=== PATIENT | male | born 1940 | race Caucasian/White ===

== ENCOUNTER 2018-04-12 15:58 | Inpatient (IN) | payer MEDICARE, SELFPAY ==
[2018-04-12 21:59] VITALS: BMI 25.4
[2018-04-12] MEDS ORDERED: Dextrose 50% Abboject 50 ML SYRINGE SLOW IVP PRN (23:04)
[2018-04-12] MEDS ORDERED: Dextrose 5% in Water 1,000 ML IV PRN (23:04)
[2018-04-12] MEDS ORDERED: HumaLOG 300 UNITS/3 ML VIAL SC PRN (23:10)
[2018-04-12] MEDS ORDERED: Diltiazem 125 MG in Sodium Chloride 0.9% 100 ML IVPB SCH (23:15)
[2018-04-12] MEDS ORDERED: hydrALAZINE 20 MG/ML VIAL SLOW IVP PRN (23:23)
--- NOTE | 2018-04-12 23:24 | PDOC.FPRHP ---
- History of Present Illness Chief Complaint: feeling funny History of Present Illness: 77 yo M with PMH of aflutter s/p ablation x2 from [facility] for Afib with RVR. This morning he "felt funny" and had "irregular heart beating." He also felt lightheaded. Denied chest pain, SOB, nausea. He says this episode felt different from his prior ID (has history of ID s/p 3V CABG). He went to the [place] ED where he was found to be in Afib wtih RVR and started on a dilt drip. At time of interview episode had just resolved. He has been hospitalized in the past for Aflutter requiring ablations. He sees Dr. Stein but states it has been a year since his last appointment. He endorses compliance with medications. ED Course: Dilt drip - Allergies/Adverse Reactions Allergies Allergy/AdvReac Type Severity Reaction Status Date / Time codeine Allergy Unverified 04/12/18 22:29 - Home Medications Medication Instructions Recorded Confirmed Type Aspirin [Aspirin Chewable Tablet] 81 mg PO DAILY 04/13/18 04/13/18 History Atorvastatin Calcium 40 mg PO HS 04/13/18 04/13/18 History Enalapril Maleate 20 mg PO BID 04/13/18 04/13/18 History Metoprolol Succinate [Toprol Xl] 50 mg PO BID 04/13/18 04/13/18 History hydrALAZINE [Apresoline] 25 mg PO BID 04/13/18 04/13/18 History metFORMIN [Glucophage] 500 mg PO BID-WM 04/13/18 04/13/18 History - History PMHx: Aflutter s/p ablation x2, ID s/p 3V CABG, HTN, DM2, HLD PSHx: Cholecystectomy FHx:HTN, DM Social: Former smoker, former EtOH abuse, denies drug use. Lives in [place], retired. [place] and [facility]. - Review of Systems General: denies: fever/chills, weight/appetite/sleep changes Eyes: denies: vision changes ENT: denies: nasal congestion Respiratory: denies: cough, congestion, shortness of breath Cardiovascular: reports: palpitation. denies: chest pain, edema, orthopnea Gastrointestinal: denies: nausea, vomiting, diarrhea, constipation Genitourinary: denies: dysuria, polyuria Skin: denies: rashes, lesions Musculoskeletal: reports: stiffness. denies: pain, tenderness Neurological: denies: syncope, seizure, weakness Psychological: denies: anxiety, depression - Vital signs BP: [168/68] HR: [83] RR: [15] Tmax: [98] Pox: [98]% on [RA] Wt: [82.78] - Physical Exam Constitutional: NAD, awake, alert and oriented HEENT: normocephalic and atraumatic, EOMI, conjunctiva clear, MMM, oropharynx clear Neck: supple, FROM Chest: no-tender to palpation, no lesions Heart: RRR, normal S1/S2 -Heart: systolic murmur Lungs: CTAB, no respiratory distress, good air movement Abdomen: soft, non-tender, no masses/distention Musculoskeletal: normal structure, normal tone, ROM grossly normal Neurological: no focal deficit, CN II-XII intact, normal sensation Skin: no rash/lesions, good turgor, capillary refill <2 seconds Heme/Lymphatic: no unusual bruising or bleeding, no petechia Psychiatric: normal mood and affect, good judgment and insight, other (poor short term memory, A&O x3) FMR H&P: Results - Labs Result Diagrams: 04/13/18 05:09 FMR H&P: A/P - Problem List (1) Atrial fibrillation with RVR Current Visit: Yes Status: Acute Code(s): I48.91 - UNSPECIFIED ATRIAL FIBRILLATION (2) HTN (hypertension) Current Visit: Yes Status: Acute Code(s): I10 - ESSENTIAL (PRIMARY) HYPERTENSION (3) DM2 (diabetes mellitus, type 2) Current Visit: Yes Status: Acute (4) HLD (hyperlipidemia) Current Visit: Yes Status: Acute Code(s): E78.5 - HYPERLIPIDEMIA, UNSPECIFIED (5) History of coronary artery bypass graft Current Visit: Yes Status: Acute (6) History of ID (myocardial infarction) Current Visit: Yes Status: Acute Code(s): I25.2 - OLD MYOCARDIAL INFARCTION (7) History of atrial flutter Current Visit: Yes Status: Acute Code(s): Z86.79 - PERSONAL HISTORY OF OTHER DISEASES OF THE CIRCULATORY SYSTEM (8) History of prior ablation treatment Current Visit: Yes Status: Acute Code(s): Z98.890 - OTHER SPECIFIED POSTPROCEDURAL STATES - Plan 77 yo M with PMH of Aflutter s/p ablation x2, ID s/p CABG here with atrial fibrillation w/ RVR #Afib with RVR -Received dilt. drip in ED -At this time rate controlled with pulse in 80s -Continue dilt. drip @5; pulse parameters <110 -Will start on th lovenox, can consider long-term anticoagulation -echo, TSH, Mg, Phos -Plan to consult Dr. Stein, recs appreciated #Elevated d-dimer -0.56, Wells score 0 -non-hypoxic on RA, no SOB, on anti-coagulation -likely from Afib #HTN -continue home meds #DM2 -continue home meds -sliding scale, accuchecks #HLD -continue home meds #ID s/p CABG -aware, outside ED negative trops #Hx of Aflutter s/p ablation x2 -aware FMR H&P: Upper Level - Pertinent history 77m transfer from outside facility for a-fib requiring diltiazem gtt for rate control. Patient with a PMH of atrial flutter s/p ablation x 2, who normally sees Dr. Stien of Cardiology. Last ablation was in 2013 and he reports no arrhythmias since then. He initially presented to ER around noon for palpitations accompanied by lightheadedness but no CP or SOB. At the time of our evaluation, patient is resting comfortably and able to answer questions. He is asymptomatic and rate controlled on diltiazem still in a-fib. ER: diltiazem 20 mg IV, diltiazem gtt @ 5mg/hr - Pertinent findings Vitals: 98.1F 75 bpm 16 RR 98% on 2L NC 150/83 mmHg Gen: A&Ox3; in no acute distress CV: irregularly irregular rhythm; normal rate Pulm: CTA-B Abd: soft; non TTP Ext: no pitting edema EKG: a-fib trop: negative x 2 D-dimer: 0.51 - Plan Date/Time: 04/12/18 2323 1. A-fib with RVR: would not consider this new onset since he has a history of ablations for atrial flutter. Currently, rate controlled on dilt gtt. Will continue CCB and maintain rate under 110 bpm. Will consult Cardiology in the morning. Check a TTE, Mag, Phos, and TSH. Anticoagulate with Lovenox 1 mg/kg BID. [id number] score of 5, translating to 10% risk of thromboembolic event. HASBLED score of 3 also puts patient in high risk category for bleeding. 2. Elevated D-dimer: patient at low risk for DVT per Wells Score of 0. He denies any pleuritic pain or SOB. Value of 0.56 only slightly out of normal range. Suspect this mild elevation is due to the atrial fibrillation that was uncontrolled on presentation. No CTA at this time. Reconsider if respiratory status declines. Regardless, he is being therapeutically anticoagulated. 3. HTN: continue home lisinopril. Hold metoprolol. PRN IV hydralazine available. 4. HLD: continue atorvastatin 5. DMII: restart metformin. CrCl of 64. mild SSI with accuchecks qACHS 6. CAD: hx of ID s/p 3V CABG. Trops negative at outside facility I, [facility], have evaluated this patient and agree with findings/plan as outlined by mechanical engineering intern resident. Pertinent changes/additions are listed here. Attending Addendum - Attending Addendum Date/Time: 04/13/18 0602 I personally evaluated the patient in the ER and discussed the management with Dr. Gallegos I agree with the History, Examination, Assessment and Plan documented above with any addition or exceptions noted below.
[2018-04-12] MEDS ORDERED: Enoxaparin Sodium 80 MG/0.8 ML SYRINGE SC SCH (23:30)
[2018-04-12] MEDS: Lactated Ringer's 1,000 ML IV SCH (23:45)
[2018-04-13] LABS: Magnesium 1.8 mg/dL (1.6-2.6); Phosphorus 2.7 mg/dL (2.3-4.7)
--- NOTE | 2018-04-13 00:17 | PDOC.EVN ---
Attending Addendum - Attending Addendum Date/Time: 04/13/18 0008 I personally evaluated the patient and discussed the management with Dr. Gallegos I agree with the History, Examination, Assessment and Plan documented see [facility] Hx and Physical for details. 77 yo DM2,HTN male s/p 3V CABG years ago in [place] with c/o felt weak and dizzy today called 911 and taken to [place], [place] ER and found to be in new onset atrial fibrillation with RVR, HR controlled with IV diltiazem drip, troponin negative x 2 and d-dimer mildly elevated. Patient followed by Dr Venkat Stein he is s/p history of Atrial flutter and ablation procedure x 2. Patient will be admitted telemetry continue diltiazem drip for rate control obtain echocardiogram for evaluation structural/ valvular disease and Lovenox for anticoagulation Check TFT and Magnesium Consult cardiology in am
[2018-04-13] MEDS ORDERED: Diltiazem 125 MG in Sodium Chloride 0.9% 100 ML IVPB SCH ×2 (01:00→01:04)
[2018-04-13 06:00] LABS: #Basophils 0.1 thou/uL (0.0-0.2); #Eosinphils 0.1 thou/uL (0.0-0.7); #Lymphocytes 1.3 thou/uL (1.20-3.40); #Monocytes 0.5 thou/uL (0.11-0.59); #Neutrophils 3.5 thou/uL (1.40-6.50); %Eosinophils 2.6 % (0.0-10.0); %Lymphocytes 23.8 % (21.0-51.0); %Monocytes 9.4 % (0.0-10.0); %Neutrophils 63.2 % (42.0-75.0); Hemoglobin 11.8 g/dL (14.0-18.0); Mean Corpuscular HGB CONC 36.1 g/dL (32.0-36.0); Mean Corpuscular Hemoglobin 32.8 pg (27.0-31.0); Mean Corpuscular Volume 90.7 fL (78.0-98.0); Mean Platelet Volume 7.7 fL (7.4-10.4); Platelet Count 216 thou/uL (130-400); RBC Distribution Width 14.6 % (11.5-14.5); Red Blood Cell (RBC) Count 3.61 mill/uL (4.70-6.10); White Blood Cell (WBC) Count 5.6 thou/uL (4.8-10.8)
[2018-04-13 06:09] LABS: ALT (SGPT) 17 U/L (8-55); AST (SGOT) 16 U/L (5-34); Albumin 3.8 g/dL (3.4-4.8); Alkaline Phosphatase 58 U/L (40-150); Anion Gap 13 mmol/L (10-20); BUN (Urea Nitrogen) 18 mg/dL (8.4-25.7); Bilirubin, Total 0.9 mg/dL (0.2-1.2); Calc. Creatinine Clearance 85 mL/min (70-130); Calcium 9.1 mg/dL (7.8-10.44); Carbon Dioxide 20 mmol/L (23-31); Chloride 108 mmol/L (98-107); Estimated GFR-MDRD 88; Globulin 2.6 g/dL (2.4-3.5); Glucose 122 mg/dL (83-110); Protein, Total 6.4 g/dL (5.8-8.1); Sodium 137 mmol/L (136-145)
--- NOTE | 2018-04-13 07:00 | PDOC.FM ---
- Subjective Subjective: NAEO. Patient states he feels much better this AM compared to yesterday. Denies any SOB, chest pain, or palpitations. Just states he feels like his heart beat is stronger. Is otherwise feeling well with no complaints. - Objective MAR Reviewed: Yes Vital Signs & Weight: Vital Signs (12 hours) Temp Pulse Resp BP Pulse Ox 04/13/18 04:00 98.1 F 60 16 119/67 98 04/12/18 23:10 59 L 119/55 L 04/12/18 20:51 98.1 F 75 16 150/83 H 98 04/12/18 20:45 98 Weight Weight 83.053 kg I&O: 04/11/18 04/12/18 04/13/18 06:59 06:59 06:59 Intake Total 888.1 Output Total 675 Balance 213.1 Result Diagrams: 04/13/18 05:09 04/13/18 05:09 <Shelly Tellez - Last Filed: 04/13/18 10:00> - Objective Vital Signs & Weight: Vital Signs (12 hours) Temp Pulse Resp BP Pulse Ox 04/13/18 08:33 81 04/13/18 08:00 96 04/13/18 07:38 99.2 F 81 16 141/63 H 96 04/13/18 04:00 98.1 F 60 16 119/67 98 Weight Weight 83.053 kg I&O: 04/12/18 04/13/18 04/14/18 06:59 06:59 06:59 Intake Total 888.1 Output Total 675 Balance 213.1 Result Diagrams: 04/13/18 05:09 04/13/18 05:09 <Michael Agustin - Last Filed: 04/13/18 11:33> Phys Exam - Physical Examination Constitutional: NAD HEENT: moist MMs Neck: supple, full ROM Respiratory: no wheezing, no rales, no rhonchi, clear to auscultation bilateral Cardiovascular: no significant murmur Irregulary irregular rhythm with regular rate Musculoskeletal: no edema, pulses present Neurological: non-focal, normal sensation, moves all 4 limbs Psychiatric: normal affect, A&O x 3 Deviation from normal: AxO x3 w/ poor custodial memory Skin: no rash, normal turgor <Shelly Tellez - Last Filed: 04/13/18 10:00> Dx/Plan (1) Atrial fibrillation with RVR Code(s): I48.91 - UNSPECIFIED ATRIAL FIBRILLATION Status: Acute (2) DM2 (diabetes mellitus, type 2) Status: Acute (3) HLD (hyperlipidemia) Code(s): E78.5 - HYPERLIPIDEMIA, UNSPECIFIED Status: Acute (4) HTN (hypertension) Code(s): I10 - ESSENTIAL (PRIMARY) HYPERTENSION Status: Acute (5) History of AK (myocardial infarction) Code(s): I25.2 - OLD MYOCARDIAL INFARCTION Status: Acute (6) History of atrial flutter Code(s): Z86.79 - PERSONAL HISTORY OF OTHER DISEASES OF THE CIRCULATORY SYSTEM Status: Acute (7) History of coronary artery bypass graft Status: Acute (8) History of prior ablation treatment Code(s): Z98.890 - OTHER SPECIFIED POSTPROCEDURAL STATES Status: Acute - Plan Plan: 77YOM with a PMH significant for Aflutter s/p ablation x2 and an AK s/p CABG x 3 who presented to the ED with a CC of "feeling funny" and was found to be in atrial fibrillation w/ RVR. Afib with RVR - Received dilt. drip in ED which has been continued on the floor. Down to rate of 5. - Rate has remained controlled with pulse in 60s-80s overnight. - Will continue th lovenox & will consider [employer] anticoagulation. - Echo ordered for today. - TSH, Mg, & Phos WNLs. - Will consult cardiology today. Recs appreciated. Spoke with Dr. Quiroz, addictions therapist dinkey engineer, who stated no invasive therapies would be done today and that the patient could eat. - Will d/c IVFs and allow patient to have a HH, CC diet today. Hx of Aflutter s/p ablation x2 - Aware. Elevated d-dimer - D-dimer 0.56 on presentation. Wells score 0. - Patient has been non-hypoxic on RA w/ no SOB since admission. - Likely from Afib. Will continue Th Lovenox for anticoagulation HTN - Will continue home meds. DM2 - Will continue home meds & SSI w/ ACHS accuchecks. - Will check an A1c since patient does not recall the last time his was checked. HLD - Will continue home meds. h/o AK s/p CABG - Aware, patient had negative trops at outside ED. - Will continue home meds. <Shelly Tellez - Last Filed: 04/13/18 10:00> Attending Addendum - Attending Addendum Date/Time: 04/13/18 113 I personally evaluated the patient and discussed the management with Dr. Tellez. I agree with the History, Examination, Assessment and Plan documented above with any addition or exceptions noted below. <Michael Agustin - Last Filed: 04/13/18 11:33>
[2018-04-13] MEDS: hydrALAZINE 25 MG TAB PO SCH ×2 (08:33→20:26)
[2018-04-13] MEDS: metFORMIN 500 MG TAB PO SCH ×2 (08:33→16:42)
[2018-04-13] MEDS: Lactated Ringer's 1,000 ML IV SCH (08:34)
[2018-04-13] MEDS ORDERED: Enoxaparin Sodium 80 MG/0.8 ML SYRINGE SC SCH (09:00)
[2018-04-13] MEDS ORDERED: Prevnar 13-Val Conj/PF 0.5 ML SYRINGE IM ONE (09:00)
[2018-04-13 10:31] LABS: Hemoglobin A1c 6.5 % (4.0-6.0)
[2018-04-13] MEDS ORDERED: Amiodarone 200 MG TAB PO SCH (13:30)
--- NOTE | 2018-04-13 13:41 | CON-2 ---
DATE OF CONSULTATION: 04/13/2018 CONSULTING PHYSICIAN: Dr. Jeff Quiroz REASON FOR CONSULTATION: Atrial fibrillation with rapid ventricular rate. HISTORY OF PRESENT ILLNESS: Mr. Montero is a pleasant 77-year-old male who presented from [place], [place] for atrial fibrillation with rapid ventricular rate. The patient states that he started feeling funny on the day of admission at approximately noon and felt as though his heart was fluttering. He opted to check his blood pressure at that time and noted his blood pressure to be 200/ 120. He called the [facility] who then took him into the emergency department. The patient was initially taken to [facility] where he was started on a diltiazem drip 10 mg per hour. He was also given Cardizem 20 mg IV. The patient was then transferred over to [facility] for further management. Of note, during this episode of not feeling well and having palpitations, the patient also had heaviness located in the center of his chest. He denied any shortness of breath, diaphoresis, nausea or vomiting. The patient states prior to this episode, he was feeling fine. He states he has been walking about 2 miles every day without any difficulties. He denies any swelling, orthopnea, paroxysmal nocturnal dyspnea or fevers. The patient states that he checks his blood pressure at home and generally it is well controlled. The patient does follow with Dr. Stein, his side seam tender; however, he has not seen Dr. Stein in over a year. Currently, the patient is asymptomatic and not experiencing any shortness of breath, chest heaviness, palpitations, diaphoresis, or nausea and vomiting. He states at the time of the elevated blood pressure prior to calling EMS he did take a dose of his enalapril, which did not help the blood pressure to come down. The patient does have a history significant for a 3-vessel CABG as well as 2 ablations for atrial flutter. The patient states that he has not had any problems with irregular heart rate since his last ablation. Patient had echo performed in 2013 which showed EF of 45-50%. PAST MEDICAL HISTORY: 1. Coronary artery disease, status post 3-vessel CABG. 2. History of atrial flutter status post ablation x2. 3. Hypertension. 4. Hyperlipidemia. 5. Diabetes mellitus type 2. OUTPATIENT MEDICATIONS: 1. Aspirin 81 mg every day. 2. Enalapril 20 mg b.i.d. 3. Metoprolol 100 mg b.i.d. 4. Simvastatin 80 mg at bedtime. 5. Meloxicam 15 daily. 6. Spironolactone 25 mg b.i.d. 7. Metformin b.i.d. (the patient is uncertain of the dose of the metformin he was taking at home). The patient did provide a list of his medications, although some of the medications that he is taking are not on the list he provided. ALLERGIES: CODEINE. FAMILY HISTORY: The patient has family history significant for myocardial infarctions in his father at the age of 64 and in his mother at the age of 64, as well. Both from myocardial infarctions. SOCIAL HISTORY: The patient is a former smoker. He states that he quit 30 years ago and had a 15-year history of smoking 1 pack per day. The patient also states that he had a history significant for alcohol abuse, but he quit drinking about 15 years ago. The patient denies any drug use. Patient does state that he walks 2 miles every day. REVIEW OF SYSTEMS: A 12-point review of systems was performed and all are negative, unless stated in the history of present illness. PHYSICAL EXAMINATION: VITAL SIGNS: Temperature 98.2 degrees Fahrenheit, pulse 93, respiratory rate 14 , oxygen saturation 95% on room air, blood pressure 154/69. GENERAL: The patient is awake, alert, and oriented x3, in no distress. HEENT: Normocephalic, atraumatic. NECK: Supple. LUNGS: Clear to auscultation bilaterally. CARDIOVASCULAR: Irregularly irregular rhythm with 2 discernible systolic murmurs, crescendo murmur and holosystolic murmur indicative of and MR, respectively. ABDOMEN: Soft with positive bowel sounds throughout. EXTREMITIES: No edema. SKIN: Warm and dry. LABORATORY DATA: Reviewed. CBC with WBC of 5.6, hemoglobin 11.8, hematocrit of 32.8, and platelets of 216. CMP shows sodium 137, potassium 4.0, chloride 108, bicarbonate 20, BUN 18, creatinine 0.84, hemoglobin A1c is 6.5, magnesium 1.8, phosphorus of 2.7, AST of 16, ALT 17, alkaline phosphatase of 58, albumin of 3.8, serum total protein of 6.4. TSH was normal at 2.0259. Telemetry strip does show atrial fibrillation with a high of 127 BPM and an average of 80-100 BPM. ASSESSMENT AND PLAN: 1. Atrial fibrillation with rapid ventricular response: The patient is currently on diltiazem drip at 5 mg per hour and it appears to be rate controlled with heart rate in the 80s-100. We will allow for pulse parameters to be less than 110. TSH, mag and phos within normal limits. Echocardiogram currently pending. Will start patient on PO Amiodarone. If patient does not convert, will plan for ESPERANZA to evaluate for thromboses tomorrow. If no thrombosis detected on ESPERANZA, then will proceed with cardioversion. Will transition to Eliquis from therapeutic lovenox. Patient will need to be on Eliquis [facility]. 2. Hypertension: Continue current medications. 3. Hyperlipidemia: Continue statin therapy. 4. Diabetes mellitus type 2: Continue metformin. HgA1c of 6.5%. 5. HFwrEF. Last echo in 2013 which showed EF of 45-50%. Repeat echocardiogram pending. Continue current medications. 6. CAD s/p 3V CABG: Maximize management of comorbid conditions. Meena El, PGY-2 D[address]ating on behalf of Dr. Jeff CADENA
--- NOTE | 2018-04-13 18:00 | CON ---
CARDIOLOGY CONSULTATION DATE OF CONSULTATION: 04/13/2018 REASON FOR CONSULTATION: Atrial fibrillation, rapid ventricular response. PRIMARY LINSEED CAKE TRIMMER: Venkat Stein MD. HISTORY OF PRESENT ILLNESS: Mr. Montero is a pleasant 77-year-old white gentleman, who comes to the [facility] for feeling palpitations. He was in atrial fibrillation with RVR, which is a new diagnosis for him. Please see Dr. Meena El's report for more details, but briefly, he came in for atrial fibrillation with RVR. He was placed on a diltiazem drip and transferred over. He has a history of atrial flutter and atrial tachycardia, which he has been ablated in the past for. He has never had a diagnosis of atrial fibrillation before. He has been on full anticoagulation and has tolerated wel l in the past. He never had any bleeding issues. He also has a history of ischemic cardiomyopathy w ith an EF of 40-45% on echo in 2013. He had 3-vessel bypass in the past as well. Currently, he is r ate controlled. PAST MEDICAL HISTORY: 1. Coronary artery disease, status post 3-vessel CABG. 2. History of atrial flutter, status post flutter ablation isthmus dependent. 3. History of atrial tachycardia, status post ablation of 3 different spots of right-sided atrial ta chycardia focuses. 4. Hypertension. 5. Hyperlipidemia. 6. Type 2 diabetes. OUTPATIENT MEDICATIONS: 1. Aspirin 81 a day. 2. Enalapril 20 mg b.i.d. 3. Metoprolol 100 mg b.i.d. 4. Simvastatin 80 mg at bedtime. 5. Meloxicam 15 daily. 6. Spironolactone 25 b.i.d. 7. Metformin. ALLERGIES: CODEINE. For family history, social history, and review of systems, please see Dr. Meena El's note, w anjelica is attached to my note. PHYSICAL EXAMINATION: VITAL SIGNS: Temperature 98.2, pulse 93, respiration rate 14, satting 94% on room air, blood pressur e 154/69. GENERAL: Awake, alert, oriented x3, in no distress. HEENT: Normocephalic, atraumatic. NECK: Supple. LUNGS: Clear. CARDIOVASCULAR: Irregularly irregular heart rate in the 80s-90s. There is a grade 3/6 systolic murm ur at the right sternal border consistent with systolic ejection murmur and a second grade 3/6 holosy stolic murmur at the apex consistent with an MR murmur. ABDOMEN: Soft, positive bowel sounds. EXTREMITIES: No edema. SKIN: Warm and dry. LABORATORY WORK: Reviewed. ASSESSMENT: 1. Atrial fibrillation with rapid ventricular response. 2. Hypertension. 3. Hyperlipidemia. 4. Type 2 diabetes. 5. Ischemic cardiomyopathy, ejection fraction at 40-45%, most recent echo. PLAN: 1. This is the first time he has ever been in atrial fibrillation RVR. He has had several right-sonali ed arrhythmias, but this is the first time he has a left-sided arrhythmia. We will plan on doing ful l anticoagulation with Eliquis as his CHADS-VASc score is 4 and we will start him on Eliquis at 5 mg p.o. b.i.d., and we will start him on amiodarone load and we will get an echocardiogram and plan on d oing a ESPERANZA cardioversion tomorrow morning, if he remains in atrial fibrillation. We have spoken abou t the risks and benefits of the procedure and he agrees to proceed. 2. Further recommendations per results of cardioversion.
[2018-04-13] MEDS: Amiodarone 200 MG TAB PO SCH (20:25)
[2018-04-13] MEDS: Apixaban 5 MG TAB PO SCH (20:25)
[2018-04-13] MEDS ORDERED: Atorvastatin Calcium 40 MG TAB PO SCH (21:00)
[2018-04-13 21:56] LABS: Platelet Count 203 thou/uL (130-400)
[2018-04-14 05:35] LABS: #Basophils 0.1 thou/uL (0.0-0.2); #Eosinphils 0.1 thou/uL (0.0-0.7); #Lymphocytes 1.4 thou/uL (1.20-3.40); #Monocytes 0.6 thou/uL (0.11-0.59); #Neutrophils 4.6 thou/uL (1.40-6.50); %Basophils 0.9 % (0.0-1.0); %Lymphocytes 20.8 % (21.0-51.0); %Monocytes 8.2 % (0.0-10.0); %Neutrophils 68.2 % (42.0-75.0); Hemoglobin 12.2 g/dL (14.0-18.0); Mean Corpuscular HGB CONC 36.4 g/dL (32.0-36.0); Mean Corpuscular Hemoglobin 32.8 pg (27.0-31.0); Mean Corpuscular Volume 90.2 fL (78.0-98.0); Platelet Count 213 thou/uL (130-400); RBC Distribution Width 14.7 % (11.5-14.5); White Blood Cell (WBC) Count 6.7 thou/uL (4.8-10.8)
[2018-04-14 05:44] LABS: ALT (SGPT) 13 U/L (8-55); AST (SGOT) 15 U/L (5-34); Albumin 3.9 g/dL (3.4-4.8); Alkaline Phosphatase 60 U/L (40-150); Anion Gap 12 mmol/L (10-20); BUN (Urea Nitrogen) 14 mg/dL (8.4-25.7); Bilirubin, Total 0.8 mg/dL (0.2-1.2); Calc. Creatinine Clearance 77 mL/min (70-130); Calcium 9.4 mg/dL (7.8-10.44); Carbon Dioxide 21 mmol/L (23-31); Chloride 108 mmol/L (98-107); Estimated GFR-MDRD 79; Globulin 2.7 g/dL (2.4-3.5); Glucose 126 mg/dL (83-110); Potassium 4.2 mmol/L (3.5-5.1); Protein, Total 6.6 g/dL (5.8-8.1); Sodium 137 mmol/L (136-145)
--- NOTE | 2018-04-14 06:17 | PDOC.FM ---
- Subjective Subjective: Patient had a 2.5s pause on telemetry monitoring overnight per the night team. On exam, patient states he feel great this morning and is ready to go home. Only complaint is a sore throat from the procedure this AM. - Objective MAR Reviewed: Yes Vital Signs & Weight: Vital Signs (12 hours) Temp Pulse Resp BP BP Pulse Ox 04/14/18 04:00 98 F 84 16 122/60 95 04/13/18 23:00 87 95/46 L 04/13/18 20:26 87 152/70 H 04/13/18 20:10 96 04/13/18 19:30 98.1 F 87 16 152/70 H 96 Weight Weight 83.053 kg I&O: 04/12/18 04/13/18 04/14/18 06:59 06:59 06:59 Intake Total 888.1 1370 Output Total 675 475 Balance 213.1 895 Result Diagrams: 04/14/18 05:20 04/14/18 05:20 <Shelly Tellez - Last Filed: 04/14/18 11:54> - Objective Vital Signs & Weight: Vital Signs (12 hours) Temp Pulse Resp BP BP Pulse Ox 04/14/18 11:17 77 173/84 H 04/14/18 10:10 97.7 F 77 20 173/80 H 97 04/14/18 04:00 98 F 84 16 122/60 95 Weight Weight 82.191 kg I&O: 04/13/18 04/14/18 04/15/18 06:59 06:59 06:59 Intake Total 888.1 1520 Output Total 675 700 Balance 213.1 820 Result Diagrams: 04/14/18 05:20 04/14/18 05:20 <Michael Agustin - Last Filed: 04/14/18 12:52> Phys Exam - Physical Examination Constitutional: NAD HEENT: moist MMs, sclera anicteric Neck: supple, full ROM Respiratory: no wheezing, no rales, no rhonchi, clear to auscultation bilateral Cardiovascular: RRR, no significant murmur Gastrointestinal: soft, non-tender, no distention, positive bowel sounds Musculoskeletal: no edema, pulses present Neurological: non-focal, normal sensation, moves all 4 limbs Psychiatric: normal affect, A&O x 3 Skin: no rash, normal turgor <Shelly Tellez - Last Filed: 04/14/18 11:54> Dx/Plan (1) Atrial fibrillation with RVR Code(s): I48.91 - UNSPECIFIED ATRIAL FIBRILLATION Status: Acute (2) DM2 (diabetes mellitus, type 2) Status: Acute (3) HLD (hyperlipidemia) Code(s): E78.5 - HYPERLIPIDEMIA, UNSPECIFIED Status: Acute (4) HTN (hypertension) Code(s): I10 - ESSENTIAL (PRIMARY) HYPERTENSION Status: Acute (5) History of [place] (myocardial infarction) Code(s): I25.2 - OLD MYOCARDIAL INFARCTION Status: Acute (6) History of atrial flutter Code(s): Z86.79 - PERSONAL HISTORY OF OTHER DISEASES OF THE CIRCULATORY SYSTEM Status: Acute (7) History of coronary artery bypass graft Status: Acute (8) History of prior ablation treatment Code(s): Z98.890 - OTHER SPECIFIED POSTPROCEDURAL STATES Status: Acute - Plan Plan: 77YOM with a PMH significant for Aflutter s/p ablation x2 and an NJ s/p CABG x 3 who presented to the ED with a CC of "feeling funny" and was found to be in atrial fibrillation w/ RVR. Afib with RVR - Patient remained on diltiazem drip for remainder of day yesterday but it was titrated down to rate of 2.5mls/hr. - Rate has remained controlled with pulse in the 80s overnight but still in a. fib. - Was taken down for a ESPERANZA w/ cardioversion early this AM as he did not convert overnight. - Echo read pending from yesterday. - Will continue to monitor closely on telemetry and discharge likely later today once cleared by cards on amiodarone and eliquis as directed by cardiology. Hx of Aflutter s/p ablation x2 - Aware. HFrEF - EF of 45-50% according to last echo. Repeat echo pending that can be discussed with patient at [facility] follow-up appt. - Aware, will continue home meds. Elevated d-dimer - D-dimer 0.56 on presentation. Wells score 0. - Patient has been non-hypoxic on RA w/ no SOB since admission. - Likely from Afib. Will continue Lovenox for anticoagulation HTN - Will continue home meds. DM2 - Will continue home meds & SSI w/ ACHS accuchecks. - A1c from yesterday was 6.5. HLD - Will continue home meds. h/o NJ s/p CABG - Aware, patient had negative trops at outside ED. - Will continue home meds. <Shelly Tellez - Last Filed: 04/14/18 11:54> Attending Addendum - Attending Addendum Date/Time: 04/14/18 4231 I personally evaluated the patient and discussed the management with Dr. Tellez. I agree with the History, Examination, Assessment and Plan documented above with any addition or exceptions noted below. <Michael Agustin - Last Filed: 04/14/18 12:52>
[2018-04-14] MEDS ORDERED: Lidocaine 0.5%/Epinephrine 1:200,000 50 ml Vial ONE (07:45)
[2018-04-14] MEDS ORDERED: PROPOFOL 20 ML ONE (07:45)
[2018-04-14 10:33] VITALS: TEMP 97.7
[2018-04-14] MEDS: Apixaban 5 MG TAB PO SCH (11:16)
[2018-04-14] MEDS: Amiodarone 200 MG TAB PO SCH (11:16)
[2018-04-14] MEDS: hydrALAZINE 25 MG TAB PO SCH (11:17)
[2018-04-14 11:18] VITALS: BP 173/84
[2018-04-14] MEDS: metFORMIN 500 MG TAB PO SCH (11:18)
[2018-04-14] MEDS ORDERED: PROPOFOL 200 MG/20 ML VIAL ONE (13:49)
--- NOTE | 2018-04-14 23:16 | OP ---
DATE OF SERVICE: 04/14/2018. PREPROCEDURE DIAGNOSIS: Atrial fibrillation, RVR. POSTPROCEDURE DIAGNOSIS: Successful cardioversion. SUMMARY: The patient is a pleasant 77-year-old white gentleman who comes down to the PACU for planned ESPERANZA card ioversion. Please see ESPERANZA for details. After adequate sedation was achieved by the anesthesiology department and ESPERANZA ruled out thrombus, he received one single synchronized 100 joules shock successfully converting him from atrial fibrillatio n into sinus rhythm with PACs. He tolerated the procedure well. RECOMMENDATIONS: 1. Continue Eliquis for full anticoagulation. 2. Continue amiodarone load. 3. Follow up in the office with Dr. Stein in 1 month.
--- NOTE | 2018-04-14 23:20 | ECHO ---
DATE OF SERVICE: 04/25/2018. PREPROCEDURE DIAGNOSIS: Atrial fibrillation, RVR. The Anesthesiology department provided with sedation for the patient. Please see their notes for det ails. After adequate sedation was achieved, transesophageal probe was inserted into the mouth and into the esophagus. Multiplanar views were obtained. Left ventricle is normal size, normal wall thickness. Systolic function appears to be normal at 50-5 5% with no regional wall motion abnormalities. Left atrium is moderately dilated. Left atrial appendage is a small appendage with no evidence of mass or thrombus. Right atrium is mildly dilated. No mass or thrombus. The right ventricle is normal size with normal systolic function. Aortic valve is sclerotic with reduced cusp opening. Aortic valve area by planimetry at 1.2 cm2. Mitral valve has mitral annular calcification with moderate MR, no stenosis. Tricuspid valve is structurally normal. There is moderate to severe TR, no stenosis. Pulmonary valve is not well seen. No significant pulmonary insufficiency is seen. Interatrial septum appears to be intact by color Doppler. CONCLUSIONS: 1. Normal systolic function, EF at 50-55%. 2. Moderate left atrial enlargement. 3. Left atrial appendage is small without evidence of mass or thrombus. 4. Sclerotic aortic valve with reduced cusp opening. Planimetry shows a valve area of 1.2 cm2, sugg estive of moderate aortic stenosis. 5. Moderate to severe TR. 6. Moderate MR.
--- NOTE | 2018-04-15 01:32 | DIS-2 ---
DATE OF ADMISSION: 04/12/2018 DATE OF DISCHARGE: 04/14/2018 RESIDENT: Dr. Shelly Tellez. ADMITTING ATTENDING: Dr. Yeyo Munoz. DISCHARGE ATTENDING: Dr. Michael Agustin. CONSULTATIONS: Cardiology, Dr. Jeff Quiroz. PROCEDURES: Transesophageal echo with cardioversion. PRIMARY DIAGNOSES: New-onset atrial fibrillation with rapid ventricular response. SECONDARY DIAGNOSES: 1. Hypertension. 2. Type 2 diabetes mellitus. 3. Hyperlipidemia. 4. History of myocardial infarction. 5. History of coronary artery bypass grafting x1. 6. History of atrial flutter. 7. History of prior ablation with treatment x2. DISCHARGE MEDICATIONS: 1. Metoprolol succinate 50 mg p.o. b.i.d. 2. Metformin 500 mg p.o. b.i.d. with meals. 3. Hydralazine 25 mg p.o. b.i.d. 4. Atorvastatin 40 mg p.o. at bedtime. 5. Enalapril maleate 20 mg p.o. b.i.d. 6. Aspirin 81 mg daily. 7. Amiodarone 100 mg p.o. b.i.d. for 7 days and followed by 400 mg p.o. daily for the remainder of the prescription. 8. Eliquis 5 mg p.o. b.i.d. DISCONTINUED MEDICATIONS: None. HISTORY OF PRESENT ILLNESS AND HOSPITAL COURSE: The patient is a 77-year-old gentleman with a past medical history significant for atrial flutter, status post ablation x2 and history of an ID status post CABG x1, who was transferred from [place], [place], after presenting to the emergency department with a chief complaint of feeling funny and having an irregular heartbeat that began the morning of presentation. The patient was evaluated in the ER and found to be in atrial fibrillation with RVR and was started on a diltiazem drip at a rate of 10mL/hr. The patient was then transferred to [facility] Emergency Department where he remained on the drip and as his HR had come down to be within normal limits. After being evaluated in our ER, he was deemed to be stable on the diltiazem drip and transferred to the floor for close monitoring overnight on telemetry. He was continued on the diltiazem drip overnight, but his drip was titrated down to 5 mL an hour and the patient's rate remained controlled overnight. The following morning, routine labs were obtained, which were all noted to be within normal limits. 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 His magnesium and TSH were also within normal limits at 1.8 and 2.0259. That same day cardiology, Dr. Jeff Quiroz, was consulted to come and evaluate the patient and initiated p.o. rhythm control therapy with amiodarone 400 /now and amiodarone 400 b.i.d. He also initiated anticoagulation therapy with Eliquis 5 mg p.o. b.i.d. and recommended the patient remain on the diltiazem drip at a lower titrated rate of 2.5 mL an hour in conjunction with the p.o. amiodarone to see if he would convert on his own overnight. However, by the morning of discharge, the patient had yet to convert to NSR and was therefore taken down to the operating room for a transesophageal echocardiogram with cardioversion. The patient tolerated the procedure well and was converted back to sinus rhythm without any complications. Thus, after being monitored for several more hours over the course of the day, he was cleared for discharge home in stable condition. DISPOSITION: Stable. DISCHARGE INSTRUCTIONS: 1. Location: Home. 2. Diet: Heart healthy diet, low-sodium diet, or diabetic diet. 3. Activity: As tolerated. 4. Followup: Patient was instructed to follow up with his primary care physician, Dr. Nahum Martin within 1 week of discharge. He was also instructed to follow up with his personal generation manager, Dr. Venkat Stein within 1 month of discharge. SURINDER
--- NOTE | 2018-04-17 11:47 | EKG ---
Test Reason : POST CARDIOVERSION Blood Pressure : / mmHG Vent. Rate : 070 BPM Atrial Rate : 070 BPM P-R Int : 178 ms QRS Dur : 102 ms QT Int : 468 ms P-R-T Axes : 247 020 -39 degrees QTc Int : 505 ms Unusual P axis, possible ectopic atrial rhythm Inferior infarct (cited on or before 14-DEC-1994) Prolonged QT Abnormal ECG Confirmed by JULIEN FRANK ([id number]) on 04/17/2018 11:47:15 AM Referred By: TERRENCE Confirmed By:JULIEN FRANK
== END 2018-04-14 14:01 | disposition home or self-care (01) | DRG 310 ==
LOC: 2NO 20:31
PROVIDERS: ADMIT Family Medicine; ATTEND Family Medicine
PROC: B246ZZ4 Ultrasonography of Right and Left Heart, Transesophageal (ICD-10-PCS; principal; 2018-04-14)
PROC: 5A2204Z Restoration of Cardiac Rhythm, Single (ICD-10-PCS; 2018-04-14)
DX: I48.91 Unspecified atrial fibrillation (principal); I08.1 Rheumatic disorders of both mitral and tricuspid valves; I10 Essential (primary) hypertension; E11.9 Type 2 diabetes mellitus without complications; E78.5 Hyperlipidemia, unspecified; I25.10 Atherosclerotic heart disease of native coronary artery without angina pectoris; I25.5 Ischemic cardiomyopathy; Z79.82 Long term (current) use of aspirin; Z79.84 Long term (current) use of oral hypoglycemic drugs; I25.2 Old myocardial infarction; Z87.891 Personal history of nicotine dependence; Z95.1 Presence of aortocoronary bypass graft; Z90.49 Acquired absence of other specified parts of digestive tract; Z83.3 Family history of diabetes mellitus; Z82.49 Family history of ischemic heart disease and other diseases of the circulatory system
CPT/HCPCS: 36415; 36416; 80053; 83036; 83735; 84100; 84443; 85025; 90471; 90662; 92960; 93005; 93010; 93306; 93312; G0008; J1650; J2001; J2704; J7050

== ENCOUNTER 2018-07-23 11:41 | Inpatient (IN) | payer MEDICARE ==
[2018-07-23 12:04] LABS: INR-International Normal Ratio 1.1; PTT 27.6 SEC (22.9-36.1); Prothrombin Time 13.9 SEC (12.0-14.7)
[2018-07-23 12:21] LABS: ALT (SGPT) 15 U/L (8-55); AST (SGOT) 14 U/L (5-34); Albumin 4.3 g/dL (3.4-4.8); Alkaline Phosphatase 60 U/L (40-150); Anion Gap 17 mmol/L (10-20); BUN (Urea Nitrogen) 19 mg/dL (8.4-25.7); Bilirubin, Total 0.6 mg/dL (0.2-1.2); CK (CPK) 39 U/L (30-200); Calc. Creatinine Clearance 0 mL/min (70-130); Calcium 9.8 mg/dL (7.8-10.44); Carbon Dioxide 20 mmol/L (23-31); Chloride 105 mmol/L (98-107); Estimated GFR-MDRD 73; Globulin 2.6 g/dL (2.4-3.5); Glucose 151 mg/dL (83-110); Protein, Total 6.9 g/dL (5.8-8.1); Sodium 138 mmol/L (136-145)
[2018-07-23 12:22] LABS: #Eosinphils 0.1 thou/uL (0.0-0.7); #Lymphocytes 1.2 thou/uL (1.20-3.40); #Monocytes 0.7 thou/uL (0.11-0.59); #Neutrophils 7.1 thou/uL (1.40-6.50); %Basophils 0.2 % (0.0-1.0); %Eosinophils 1.2 % (0.0-10.0); %Lymphocytes 12.6 % (21.0-51.0); %Monocytes 7.7 % (0.0-10.0); %Neutrophils 78.2 % (42.0-75.0); Hemoglobin 13.5 g/dL (14.0-18.0); Mean Corpuscular HGB CONC 34.2 g/dL (32.0-36.0); Mean Corpuscular Hemoglobin 31.8 pg (27.0-31.0); Mean Platelet Volume 7.8 fL (7.4-10.4); Platelet Count 185 thou/uL (130-400); RBC Distribution Width 14.6 % (11.5-14.5); Red Blood Cell (RBC) Count 4.24 mill/uL (4.70-6.10); White Blood Cell (WBC) Count 9.1 thou/uL (4.8-10.8)
[2018-07-23 12:42] LABS: CKMB 1.7 ng/mL (0-6.6)
--- NOTE | 2018-07-23 12:46 | PDOC.FPRHP ---
- History of Present Illness Chief Complaint: Chest pain History of Present Illness: 77yo M with pmh of CAD s/p CABG 20years ago presents to ED with complaint of CP. Of note pt is poor historian and unable to provide details about his condition. His son is at bedside and provided a majority of the history. Pt called EMS with complaint of substernal CP with some radiation to the back. In route pt had evidence of ST elevation and was given nitro x3 and ASA. This resolved the ST elevation and CP completely. By the time pt was evaluated by family medicine team he was asymptomatic and had no complaints. Of note pt was in hospital in early April with atrial fibrilation and was cardioverted. ED Course: ASA, nitro x3, therapeutic dose of lovenox. For further details see hpi - Allergies/Adverse Reactions Allergies Allergy/AdvReac Type Severity Reaction Status Date / Time codeine Allergy Verified 04/13/18 08:32 - Home Medications Medication Instructions Recorded Confirmed Type Aspirin Chewable [Aspirin Chewable 81 mg PO DAILY 04/13/18 07/23/18 History Tablet] Atorvastatin Calcium 40 mg PO HS #30 tablet 04/14/18 07/23/18 Rx Enalapril Maleate 20 mg PO BID #60 tablet 04/14/18 07/23/18 Rx hydrALAZINE [Apresoline] 25 mg PO BID #60 tab 04/14/18 07/23/18 Rx metFORMIN [Glucophage] 500 mg PO BID-WM #60 tab 04/14/18 07/23/18 Rx Metoprolol Tartrate [Lopressor] 50 mg PO BID 07/23/18 07/23/18 History - History PMHx: DM2, CAD, HTN, HLD, a-fib PSHx: CABG, L knee surgery FHx: CAD (mom and dad from [place]) Social: 20 pack year Hx smoking (former smoker) - Review of Systems General: denies: fever/chills, fatigue Eyes: denies: eye pain, vision changes ENT: denies: nasal congestion Respiratory: reports: shortness of breath. denies: congestion Cardiovascular: reports: chest pain. denies: palpitation Gastrointestinal: denies: nausea, vomiting Genitourinary: denies: incontinence, dysuria Skin: denies: rashes, lesions Musculoskeletal: denies: pain, tenderness Neurological: denies: syncope, seizure Psychological: denies: anxiety, depression - Vital signs BP: [131/71] HR: [101] RR: [17] Tmax: [97.8] Pox: [100]% on [ra] Wt: [89kg] - Physical Exam Constitutional: NAD, awake, alert and oriented HEENT: EOMI, conjunctiva clear, grossly normal vision, grossly normal hearing Neck: supple, trachea midline Chest: no-tender to palpation Heart: RRR, other (holosystolic grade 3/6 murmur) Lungs: CTAB, no wheezing Abdomen: soft, non-tender Musculoskeletal: normal structure, normal tone Neurological: no focal deficit, normal sensation Skin: no rash/lesions, good turgor Heme/Lymphatic: no unusual bruising or bleeding, no purpura Psychiatric: normal mood and affect, other (poor insight) FMR H&P: Results - Labs Result Diagrams: 07/23/18 11:48 07/23/18 11:48 Lab results: WBC 9.1 thou/uL (4.8-10.8) 07/23/18 11:48 Hgb 13.5 g/dL (14.0-18.0) L 07/23/18 11:48 Hct 39.4 % (42.0-52.0) L 07/23/18 11:48 MCV 93.0 fL (78.0-98.0) 07/23/18 11:48 Plt Count 185 thou/uL (130-400) 07/23/18 11:48 Neutrophils % 78.2 % (42.0-75.0) H 07/23/18 11:48 Sodium 138 mmol/L (136-145) 07/23/18 11:48 Potassium 4.0 mmol/L (3.5-5.1) 07/23/18 11:48 Chloride 105 mmol/L (98-107) 07/23/18 11:48 Carbon Dioxide 20 mmol/L (23-31) L 07/23/18 11:48 BUN 19 mg/dL (8.4-25.7) 07/23/18 11:48 Creatinine 0.99 mg/dL (0.7-1.3) 07/23/18 11:48 Glucose 151 mg/dL (83-110) H 07/23/18 11:48 Calcium 9.8 mg/dL (7.8-10.44) 07/23/18 11:48 Total Bilirubin 0.6 mg/dL (0.2-1.2) 07/23/18 11:48 AST 14 U/L (5-34) 07/23/18 11:48 ALT 15 U/L (8-55) 07/23/18 11:48 Alkaline Phosphatase 60 U/L (40-150) 07/23/18 11:48 Creatine Kinase 39 U/L (30-200) 07/23/18 11:48 CK-MB (CK-2) 1.7 ng/mL (0-6.6) 07/23/18 11:48 Serum Total Protein 6.9 g/dL (5.8-8.1) 07/23/18 11:48 Albumin 4.3 g/dL (3.4-4.8) 07/23/18 11:48 FMR H&P: A/P - Problem List (1) NSTEMI (non-ST elevated myocardial infarction) Current Visit: Yes Status: Acute Code(s): I21.4 - NON-ST ELEVATION (NSTEMI) MYOCARDIAL INFARCTION (2) DM2 (diabetes mellitus, type 2) Current Visit: No Status: Acute (3) HLD (hyperlipidemia) Current Visit: No Status: Acute Code(s): E78.5 - HYPERLIPIDEMIA, UNSPECIFIED (4) HTN (hypertension) Current Visit: No Status: Acute Code(s): I10 - ESSENTIAL (PRIMARY) HYPERTENSION (5) History of [place] (myocardial infarction) Current Visit: No Status: Acute Code(s): I25.2 - OLD MYOCARDIAL INFARCTION (6) History of atrial flutter Current Visit: No Status: Acute Code(s): Z86.79 - PERSONAL HISTORY OF OTHER DISEASES OF THE CIRCULATORY SYSTEM (7) History of prior ablation treatment Current Visit: No Status: Acute Code(s): Z98.890 - OTHER SPECIFIED POSTPROCEDURAL STATES - Plan NSTEMI A-indeterminate trops trended to positive range. With history of ECHO in Apr 2018, will not plan to get ECHO repeat at this time but check BNP as I did not see a murmur documented in previous progress notes. Dr. Stein consulted, recs greatly appreciated. HEART score of 8 P-therapeutic lovenox -ASA -check EKG and continue to trend trops -NPO for potential cath -f/u Cards recs DMII - Pt was unable to name or confirm any of his home medications. His family is bringing a list on 07/24. Will start up home meds at that time if they are not contraindicated HTN -resume home meds when known HLD -resume home meds when known Hx of a-fib with RVR s/p successful cardioversion -resume home meds when known Hx of smoking -MD aware dispo- inpt tele, anticipate over 2 midnights Diet- NPO IVF: LR @ 120ml/hr FMR H&P: Upper Level - Pertinent history 77 yo male presented to ER for chest discomfort. Patient is poor historian. Says this episode started around 06:00 while watching TV. Denies chest pain or tightness and has difficulty describing what was happening, but symptoms included dizziness, SOB, and a funny feeling in his chest. He called his son who lives about 5 miles away, then EMT. In route, patient had EKG that showed ST segment elevation and received 324 aspirin, 4 doses of sublingual nitro, fentanyl. Denies and chest pain at this time. Hx significant for UT about 20 years ago, HTN, HLD, DMII, afib with RVR with cardioversion in April 2018. Family Hx of heart attack in both parents, mom at 60, dad at 74. - Pertinent findings 144/62 HR: 85 100% on 2L NC RR: 18 TEMP: 97.7 Trop: 0.033, 0.385 CK: 39 CKMB: 1.7 M.0 Phos: 2.8 CXR: cardiomegaly EKG: possible inferior infarct ECHO (04/2018): 50-55%, moderate aortic stenosis, moderate to severe tricuspid regurg GEN: NAD, no pain reported CARD: RRR, systolic murmur PULM: mild diffuse expiratory wheezing EXT: no cyanosis or edema - Plan Date/Time: 07/23/18 1246 I, Mc Clayton DO, have evaluated this patient and agree with findings/plan as outlined by graphics intern resident. Pertinent changes/additions are listed here. #NSTEMI -indeterminate trops now trended to positive range, check EKG and continue to trend -with history of ECHO in Apr 2018, will not plan to get ECHO repeat at this time but check BNP as I did not see a murmur documented in previous progress notes -Dr. Stein consulted, recs greatly appreciated -HEART score of 8 -therapeutic lovenox #Hx of smoking #DMII #HTN #HLD #family history of CAD #Hx of afib with RVR s/p successful cardioversion Patient does not know what medications he takes, family was asked to bring medications in to hospital so we can continue as long as they are not contraindicated
[2018-07-23] MEDS ORDERED: Nitroglycerin 2% Ointment 1 INCH/1 GM Packet ONE (13:07)
[2018-07-23] MEDS ORDERED: Enoxaparin Sodium 100 MG/ML SYRINGE ONE (13:07)
--- NOTE | 2018-07-23 13:36 | RAD ---
SINGLE VIEW OF THE CHEST: COMPARISON: None. HISTORY: Myocardial infarction. Chest pain. FINDINGS: A single view of the chest shows an enlarged but stable cardiomediastinal silhouette. The patient is status post sternotomy. There is no evidence of consolidation, mass, or pleural effusion. IMPRESSION: Cardiomegaly. POS: EMILY
[2018-07-23 15:20] LABS: Troponin I 0.385 ng/mL (< 0.028)
[2018-07-23] MEDS: Lactated Ringer's 1,000 ML IV SCH (15:35)
[2018-07-23 15:37] VITALS: BMI 27.6
[2018-07-23 16:32] LABS: Phosphorus 2.8 mg/dL (2.3-4.7)
--- NOTE | 2018-07-23 18:27 | HP ---
HISTORY OF PRESENT ILLNESS: I have examined the patient. I have discussed the case with Dr. Avi Lambert, and agree with his assessment and plan. Mr. Montero is a pleasant 77-year-old white male patient, who is status post CABG 20 years ago. This morning while sitting watching television, he developed retrosternal chest pain that was moderately severe. EMS was called and he was transported to our emergency room. On route to the ER, he was noted to have ST depression in leads V2 through V6. He was given nitroglycerin and fentanyl per the EMS team and his chest pain resolved as did the ST-segment changes. When I examined the patient later this afternoon, he is resting in bed comfortably. He is pain-free. Other than a possible memory deficit, he is awake and alert, in no distress. PHYSICAL EXAMINATION: VITAL SIGNS: His blood pressure is 150/67, his respirations are 16 and not labored, and his pulse is 77 and regular with occasional ectopic beat. He is afebrile. His oxygen saturation on 2 L is 100%. EAR, NOSE, AND THROAT: No outward signs of trauma. Mucous membranes moist. CARDIAC: PMI is in the 5th intercostal space. There is an S4 gallop. Distant heart sounds. No murmur or rub noted. LUNGS: Scattered rhonchi. No rales or wheezes. No use of accessory muscles. No signs of respiratory distress. ABDOMEN: Flat and soft. No guarding, rebound, or rigidity noted. EXTREMITIES: No edema. NEUROLOGIC: No focal deficits. LABORATORY DATA: His CBC white count 9100, hemoglobin 13.5, hematocrit of 39.4, and MCV is 93. Chemistry sodium 138, potassium 4, chloride 105, bicarb 20, BUN 19, creatinine 0.99, and his glucose is 151. Liver enzymes are normal. His initial troponin was in the indeterminate range at 0.033. It is now or was at 2:30 this afternoon 0.385, placing it into the NSTEMI range. His BNP is slightly elevated at 183. His EKG shows an old inferior PA, but no acute ischemic changes. ASSESSMENT: 1. Non-ST segment elevated myocardial infarction. 2. History of diabetes. 3. History of hypertension. DISPOSITION: The case has already been discussed by the resident with the ssis architect. The patient is currently stable. Will likely need catheterization tomorrow. Job ID: [id number]
[2018-07-23 18:48] LABS: Troponin I 1.049 ng/mL (< 0.028)
[2018-07-23] MEDS ORDERED: Betamethasone 0.1% Cream 15 GM TUBE TOP PRN (19:00)
[2018-07-23] MEDS ORDERED: Communication Order-Pharmacy FS SCH (21:00)
[2018-07-23 21:37] LABS: Troponin I 1.278 ng/mL (< 0.028)
--- NOTE | 2018-07-23 23:23 | CON ---
DATE OF CONSULTATION: HISTORY OF PRESENT ILLNESS: Israel Montero is a 77-year-old white male whom I evaluated here in December of 1994. In 1983, he had an inferior myocardial infarction. He then presented here in December 1994 with 2-week history of increasing exertional chest discomfort. He underwent cardiac catheterization and had moderate inferior and inferobasal hypokinesis as well as mild anterior hypokinesis. Ejection fraction was 40%. There was an 80% proximal LAD, 40% mid LAD, 50% proximal circumflex, 80% first obtuse marginal. There also was a 60% and 50% mid circumflex lesion. The right coronary artery was totally occluded in its proximal portion and filled retrograde from the left as well as antegrade via bridging collaterals. It was recommended that he undergo CABG. Surgery was offered here. However, he wished to seek care elsewhere due to lack of funding. Ultimately, he went to [facility] in [place], underwent CABG x3 in December 1994. There was SILVERIO to the LAD, saphenous vein graft to the obtuse marginal, and to the posterior descending coronary artery. He apparently had an uneventful postoperative course. Mr. Montero did not return for followup. I did not see him again until September 2013 as he was being followed by [facility]. He apparently had atrial flutter on EKG in December 2012 and was sinus in rhythm in February 2013. He continued to have palpitations, and when I saw him in January 2013, he was in atrial flutter. Carotid massage was performed without slowing the rhythm. He was placed on Eliquis and sent for ablation, performed here on April 27, 2013. He was seen back in the office in September 2013, and states that he was walking 2 miles per day. He stated it was the best he had felt in years. He has continued to be seen intermittently, the last time he was seen in the office was January 2017 and was doing well. He then presented here in April 2018 with atrial fibrillation with rapid ventricular response. He was placed on intravenous Cardizem. He ultimately underwent ESPERANZA and electrical cardioversion by Dr. Quiroz. Echocardiogram revealed ejection fraction of 50% to 55% with mitral annular calcification, moderate mitral regurgitation, moderate aortic stenosis, and [id number] tricuspid regurgitation. Transesophageal echocardiogram revealed ejection fraction of 50% to 55% with moderate left atrial enlargement, small left atrial appendage without evidence of thrombus. Planimetry of the aortic valve showed an area of 1.2 sq cm suggestive of moderate aortic stenosis. There was [id number] tricuspid regurgitation. He underwent electrical cardioversion at 100 joules successfully converted to sinus rhythm. He had been loaded with amiodarone and was discharged on amiodarone and Eliquis. He states that he ran out of the Eliquis 1 week ago. Apparently, he also has been no longer taking the amiodarone. Then today, he was sitting and watching television, developed retrosternal chest pressure that was very severe. He called EMS and apparently there was ST-segment depression V2 through V6. The paramedics arrived. He was given nitroglycerin and fentanyl and chest pain ultimately resolved as well as the EKG changes. Unfortunately, there are no rhythm strips on the chart or any of that information available for review. At the present time, he denies any symptoms. PAST MEDICAL HISTORY: Hypertension, hyperlipidemia, history of flutter ablation as well as history of cardioversion for atrial fibrillation in April. He no longer is taking the Eliquis or the amiodarone, but should be. Diabetes. MEDICATIONS: 1. Aspirin 81 daily. 2. Atorvastatin 40 at bedtime. 3. Enalapril 20 b.i.d. 4. Hydralazine 25 b.i.d. 5. Metformin 500 mg daily. 6. Metoprolol 50 b.i.d. 7. He also should be on amiodarone as well as Eliquis. ALLERGIES: CODEINE. SOCIAL HISTORY: He smoked in the past, stopped around the time of his heart attack in 1983. He occasionally drinks. REVIEW OF SYSTEMS: A 12-point review of systems is unremarkable. PHYSICAL EXAMINATION: VITAL SIGNS: Blood pressure 148/66, pulse of 72. HEENT: PERRL. NECK: Supple. CHEST: Clear. CARDIAC: S1 and S2 normal without any S3, S4, or murmurs. ABDOMEN: Normal bowel sounds without tenderness or organomegaly. EXTREMITIES: Revealed no clubbing, cyanosis, or edema. NEUROLOGIC: Grossly intact. SKIN: Warm and dry. LABORATORY DATA: EKG reveals normal sinus rhythm with inferior Q-waves. EKG is very similar to 1 from September 2015. Hemoglobin 13.5, hematocrit 39.4, white count 9100, platelets 185,000. Sodium 138, potassium 4.0, chloride 105, carbon dioxide 20, BUN 19, creatinine 0.99. Troponin I is up to 1.049. BNP 183.2. IMPRESSION: 1. Gwv-EU-esjdnxwob myocardial infarction. 2. Status post coronary artery bypass graft x3 in December 1994 at [facility] in [place]. 3. Status post cardioversion for atrial fibrillation in April 2018. He has been noncompliant with amiodarone and Eliquis. 4. History of atrial flutter ablation in April 2013. He also underwent ablation of 3 different atrial tachycardia sites in August 2013. 5. Hypertension. 6. Diabetes. 7. Hypercholesterolemia. 8. Former smoker. PLAN: Situation discussed with the patient. It was recommended that he undergo cardiac catheterization. Risks and benefits were discussed including , myocardial infarction, dye reaction, vascular injury, CVA, transfusion, limb loss, renal loss, etc. Also risk of intervention with PTCA and stent placement were discussed including , myocardial infarction, emergent CABG, restenosis, stent thrombosis, vessel perforation, etc. He understands and agrees to proceed. With the need for long-term anticoagulation and his medical noncompliance, I would only place a bare-metal stent. He will be restarted on amiodarone at this time and be placed back on Eliquis near the time of discharge. [facility] ID: [id number] [facility]
[2018-07-24] MEDS: Lactated Ringer's 1,000 ML IV SCH (00:20)
--- NOTE | 2018-07-24 05:55 | PDOC.EVN ---
Event Note - Event Note Event Note: Informed of patients rising troponin since admission. Dr. Stein was contacted and is aware of situation. No new recommendations given and he will see patient for consultation and likely cath. Continue symptomatic treatment.
[2018-07-24] MEDS ORDERED: Enoxaparin Sodium 40 MG/0.4 ML SYRINGE SC SCH ×2 (06:00→09:00)
[2018-07-24] MEDS ORDERED: Sodium Chloride 0.9% 1,000 ML IV SCH ×2 (06:00→14:46)
[2018-07-24] MEDS: Amiodarone 200 MG TAB PO SCH ×2 (06:09→21:24)
[2018-07-24] MEDS: Metoprolol Tartrate 50 MG TAB PO SCH ×2 (06:11→21:25)
[2018-07-24] MEDS: Aspirin 81 mg Enteric Coated Tablet PO SCH (06:11)
[2018-07-24 06:15] LABS: Anion Gap 12 mmol/L (10-20); BUN (Urea Nitrogen) 15 mg/dL (8.4-25.7); Calc. Creatinine Clearance 79 mL/min (70-130); Calcium 9.4 mg/dL (7.8-10.44); Carbon Dioxide 22 mmol/L (23-31); Cardiac Risk 3.8 (Less than 4.5); Chloride 109 mmol/L (98-107); Cholesterol 111 mg/dl (< 200 Desired); Estimated GFR-MDRD 79; Glucose 122 mg/dL (83-110); HDL Cholesterol 29 mg/dL (>60 Neg Risk); LDL Cholesterol, Calculated 58 mg/dL; Potassium 3.7 mmol/L (3.5-5.1); Sodium 139 mmol/L (136-145); Triglycerides 118 mg/dL (Less than 150)
--- NOTE | 2018-07-24 06:50 | PDOC.FM ---
- Subjective Subjective: 77 yo gentleman with hx of 3V CABG in ', A. flutter s/p ablation 2012, and afib with rvr in 2018 presents with substernal chest pain at rest with nausea and diaphoresis relieved by nitro and aspirin admitted for typical chest pain concerning for ACS. O/N: No acute events. He denied chest pain this morning and has not had any chest pain since the initial event yesterday. EMS leads in the archived [facility] imaging did show ST depressions in V2, V3, aVL, I, II and ST elevations in aVR. - Objective MAR Reviewed: Yes Vital Signs & Weight: Vital Signs (12 hours) Temp Pulse Resp BP BP Pulse Ox 07/24/18 06:10 152/72 H 07/24/18 04:00 98.3 F 72 18 152/72 H 97 07/23/18 23:25 98.7 F 77 16 113/55 L 98 07/23/18 20:00 98.5 F 72 16 148/66 H 96 Weight Weight 84.822 kg I&O: 07/22/18 07/23/18 07/24/18 06:59 06:59 06:59 Intake Total 437 Output Total 650 Balance -213 Result Diagrams: 07/23/18 11:48 07/24/18 05:19 Phys Exam - Physical Examination Constitutional: NAD HEENT: PERRLA, moist MMs Respiratory: no wheezing, no rales, clear to auscultation bilateral Cardiovascular: RRR, no significant murmur Gastrointestinal: soft, non-tender, no distention Musculoskeletal: no edema, pulses present Neurological: non-focal, normal sensation Lymphatic: no nodes Psychiatric: normal affect, A&O x 3 Skin: no rash, normal turgor Dx/Plan (1) Acute coronary syndrome Code(s): I24.9 - ACUTE ISCHEMIC HEART DISEASE, UNSPECIFIED Status: Acute (2) DM2 (diabetes mellitus, type 2) Status: Acute (3) HLD (hyperlipidemia) Code(s): E78.5 - HYPERLIPIDEMIA, UNSPECIFIED Status: Acute (4) HTN (hypertension) Code(s): I10 - ESSENTIAL (PRIMARY) HYPERTENSION Status: Acute (5) History of [place] (myocardial infarction) Code(s): I25.2 - OLD MYOCARDIAL INFARCTION Status: Acute (6) History of atrial flutter Code(s): Z86.79 - PERSONAL HISTORY OF OTHER DISEASES OF THE CIRCULATORY SYSTEM Status: Acute (7) History of coronary artery bypass graft Status: Acute (8) History of prior ablation treatment Code(s): Z98.890 - OTHER SPECIFIED POSTPROCEDURAL STATES Status: Acute (9) Atrial fibrillation status post cardioversion Code(s): I48.91 - UNSPECIFIED ATRIAL FIBRILLATION Status: Acute - Plan Plan: ACS- -NSTEMI vs STEMI -substernal chest pain at rest with rising troponin with evidence of ST depressions in V2, V3, aVL, I, II and elevations in aVR on strip from EMS (see archived imaging in [facility]); Repeat EKG does not show these changes (after nitro and aspirin). No present chest pain. -last cath >20 years ago -plan for repeat cath today -hx of cad s/p cabg , hx of atrial flutter s/p ablation 2013, and hx of afib with rvr 04/2018 s/p cardioversion on eliquis and amiodarone, -hx of DM, HTN, HLD DMII -accuchecks BID, hba1c -diabetic diet -mild sliding scale HTN -Continueenalapril daily HLD -Continue atorvastatin 40mg daily Hx of a-fib with RVR s/p cardioversion -eliquis held -metoprolol and amiodarone restarted Hx of smoking -MD aware dispo- inpt tele, anticipate over 2 midnights Diet- NPO IVF: LR @ 120ml/hr Addendum - Attending - Attending Attestation Date/Time: 07/24/18 1122 I personally evaluated the patient and discussed the management with Dr. Alejandro. I agree with and repeated the History, Examination, Assessment and Plan documented above with any addition or exceptions noted below. Cath today. Risk factor management.
[2018-07-24] MEDS ORDERED: Heparin 10,000 UNITS/1 ML VIAL ONE ×2 (08:06→12:18)
[2018-07-24] MEDS ORDERED: Iopamidol 370 76% 100 ML VIAL ONE (09:22)
[2018-07-24] MEDS ORDERED: Iopamidol 370 76% 50 ML VIAL FS ONE (09:22)
[2018-07-24] MEDS ORDERED: HumaLOG 300 UNITS/3 ML VIAL SC PRN (11:14)
[2018-07-24] MEDS ORDERED: Dextrose 5% in Water 1,000 ML IV PRN (11:14)
[2018-07-24] MEDS ORDERED: Dextrose 50% Abboject 50 ML SYRINGE SLOW IVP PRN (11:14)
[2018-07-24] MEDS ORDERED: Midazolam HCl 2 mg/2 ml Vial ONE (12:38)
[2018-07-24] MEDS ORDERED: Fentanyl 100 MCG/2 ML VIAL ONE ×2 (12:39→19:50)
[2018-07-24] MEDS ORDERED: Bivalirudin 250 MG VIAL ONE (13:01)
[2018-07-24] MEDS ORDERED: Clopidogrel Bisulfate 300 MG TAB ONE (13:25)
[2018-07-24] MEDS ORDERED: Adenosine 6 MG/2 ML VIAL ONE (13:29)
[2018-07-24] MEDS ORDERED: Nitroglycerin 0.4 MG TAB (25 Tab Bottle) SL PRN (14:45)
[2018-07-24] MEDS ORDERED: cloNIDine 0.1 MG TAB ONE (15:03)
[2018-07-24] MEDS ORDERED: hydrALAZINE 20 MG/ML VIAL ONE (19:49)
[2018-07-24] MEDS ORDERED: Atorvastatin Calcium 40 MG TAB PO SCH (21:00)
[2018-07-25 05:47] LABS: #Eosinphils 0.1 thou/uL (0.0-0.7); #Lymphocytes 0.9 thou/uL (1.20-3.40); #Monocytes 0.5 thou/uL (0.11-0.59); #Neutrophils 4.9 thou/uL (1.40-6.50); %Basophils 0.2 % (0.0-1.0); %Eosinophils 1.5 % (0.0-10.0); %Lymphocytes 13.5 % (21.0-51.0); %Monocytes 8.3 % (0.0-10.0); %Neutrophils 76.5 % (42.0-75.0); Hemoglobin 11.1 g/dL (14.0-18.0); Mean Corpuscular HGB CONC 34.1 g/dL (32.0-36.0); Mean Corpuscular Hemoglobin 31.8 pg (27.0-31.0); Mean Corpuscular Volume 93.1 fL (78.0-98.0); Mean Platelet Volume 7.4 fL (7.4-10.4); Platelet Count 170 thou/uL (130-400); RBC Distribution Width 14.3 % (11.5-14.5); White Blood Cell (WBC) Count 6.4 thou/uL (4.8-10.8)
[2018-07-25 06:14] LABS: ALT (SGPT) 10 U/L (8-55); AST (SGOT) 14 U/L (5-34); Albumin 3.7 g/dL (3.4-4.8); Alkaline Phosphatase 57 U/L (40-150); Anion Gap 10 mmol/L (10-20); BUN (Urea Nitrogen) 14 mg/dL (8.4-25.7); Bilirubin, Total 0.9 mg/dL (0.2-1.2); Calc. Creatinine Clearance 82 mL/min (70-130); Carbon Dioxide 21 mmol/L (23-31); Chloride 107 mmol/L (98-107); Estimated GFR-MDRD 85; Globulin 2.1 g/dL (2.4-3.5); Glucose 125 mg/dL (83-110); Potassium 3.8 mmol/L (3.5-5.1); Protein, Total 5.8 g/dL (5.8-8.1); Sodium 134 mmol/L (136-145)
--- NOTE | 2018-07-25 07:17 | PDOC.FM ---
- Subjective Subjective: 77 yo gentleman who initially presented with chest pain now s/p cardiac cath with one bare-metal stent placed at 1st obtuse marginal bypass graft, other two stents patent. O/n: no acute events. No chest pain this am. Wants to go home. - Objective MAR Reviewed: Yes Vital Signs & Weight: Vital Signs (12 hours) Temp Pulse Resp BP BP Pulse Ox 07/25/18 04:00 97.1 F L 71 18 155/70 H 97 07/25/18 01:00 52 L 16 102/59 L 07/24/18 21:32 78 157/72 H 07/24/18 21:24 182/79 H 07/24/18 21:05 97.7 F 76 18 182/79 H 99 Weight Weight 83.092 kg I&O: 07/24/18 07/25/18 07/26/18 06:59 06:59 06:59 Intake Total 437 500 Output Total 650 350 Balance -213 150 Result Diagrams: 07/25/18 05:22 07/25/18 05:22 Phys Exam - Physical Examination Constitutional: NAD HEENT: PERRLA, moist MMs Respiratory: no wheezing, no rales, clear to auscultation bilateral Cardiovascular: RRR, no significant murmur Gastrointestinal: soft, non-tender, no distention Musculoskeletal: no edema, pulses present Neurological: non-focal, normal sensation Psychiatric: normal affect, A&O x 3 Skin: no rash Dx/Plan (1) Acute coronary syndrome Code(s): I24.9 - ACUTE ISCHEMIC HEART DISEASE, UNSPECIFIED Status: Acute (2) DM2 (diabetes mellitus, type 2) Status: Acute (3) HLD (hyperlipidemia) Code(s): E78.5 - HYPERLIPIDEMIA, UNSPECIFIED Status: Acute (4) HTN (hypertension) Code(s): I10 - ESSENTIAL (PRIMARY) HYPERTENSION Status: Acute (5) History of [place] (myocardial infarction) Code(s): I25.2 - OLD MYOCARDIAL INFARCTION Status: Acute (6) History of atrial flutter Code(s): Z86.79 - PERSONAL HISTORY OF OTHER DISEASES OF THE CIRCULATORY SYSTEM Status: Acute (7) History of coronary artery bypass graft Status: Acute (8) History of prior ablation treatment Code(s): Z98.890 - OTHER SPECIFIED POSTPROCEDURAL STATES Status: Acute (9) Atrial fibrillation status post cardioversion Code(s): I48.91 - UNSPECIFIED ATRIAL FIBRILLATION Status: Acute - Plan Plan: ACS- -NSTEMI -substernal chest pain at rest with rising troponin with evidence of ST depressions in V2, V3, aVL, I, II and elevations in aVR on strip from EMS (see archived imaging in [facility]); Repeat EKG does not show these changes (after nitro and aspirin). No present chest pain. -last cath >20 years ago -cath yesterday, one bare-metal stent placed at first obtuse marginal bypass graft, other two stents patent; cleared to go home by cardiology with one month of plavix. -hx of cad s/p cabg , hx of atrial flutter s/p ablation 2013, and hx of afib with rvr 04/2018 s/p cardioversion on eliquis and amiodarone, -hx of DM, HTN, HLD DMII -accuchecks BID -diabetic diet -mild sliding scale HTN -Continue enalapril daily HLD -Continue atorvastatin 40mg daily Hx of a-fib with RVR s/p cardioversion -restart eliquis -continue metoprolol and amiodarone Hx of smoking -MD aware dispo- dc today Addendum - Attending - Attending Attestation Date/Time: 07/25/18 1511 I personally evaluated the patient and discussed the management with Dr. Alejandro. I agree with and repeated the History, Examination, Assessment and Plan documented above with any addition or exceptions noted below. Doing well, no cp /sob/n/v/f/c. No groin pain.
[2018-07-25] MEDS: Amiodarone 200 MG TAB PO SCH (08:48)
[2018-07-25] MEDS: Metoprolol Tartrate 50 MG TAB PO SCH (08:49)
[2018-07-25] MEDS: Aspirin 81 mg Enteric Coated Tablet PO SCH (08:49)
[2018-07-25] MEDS ORDERED: Aspirin Chewable 81 MG TAB PO SCH (09:00)
[2018-07-25] MEDS ORDERED: Clopidogrel Bisulfate 75 MG TAB PO SCH (09:00)
[2018-07-25 12:39] VITALS: BP 177/86; TEMP 98.3
[2018-07-25] MEDS ORDERED: hydrALAZINE 20 MG/ML VIAL SLOW IVP SCH (13:00)
[2018-07-25] MEDS ORDERED: hydrALAZINE 25 MG TAB PO SCH ×3 (15:00→21:00)
[2018-07-25] MEDS ORDERED: metFORMIN 500 MG TAB PO SCH (17:00)
[2018-07-25] MEDS ORDERED: Atorvastatin Calcium 40 MG TAB PO SCH (21:00)
[2018-07-25] MEDS ORDERED: Non-Formulary Item 1 EACH (Enalapril Maleate [Enalapril Maleate] 20 MG) PO SCH (21:00)
[2018-07-25] MEDS ORDERED: Metoprolol Tartrate 50 MG TAB PO SCH (21:00)
[2018-07-26] MEDS ORDERED: Aspirin Chewable 81 MG TAB PO SCH (09:00)
== END 2018-07-25 16:40 | disposition home or self-care (01) | DRG 249 ==
LOC: ERS 11:41 → SUPCPDRO 11:41 → 2NO 12:48
PROVIDERS: ADMIT Family Medicine; ATTEND Family Medicine
PROC: 02703DZ Dilation of Coronary Artery, One Artery with Intraluminal Device, Percutaneous Approach (ICD-10-PCS; principal; 2018-07-24)
PROC: 4A023N7 Measurement of Cardiac Sampling and Pressure, Left Heart, Percutaneous Approach (ICD-10-PCS; 2018-07-24)
PROC: B2111ZZ Fluoroscopy of Multiple Coronary Arteries using Low Osmolar Contrast (ICD-10-PCS; 2018-07-24)
PROC: B2131ZZ Fluoroscopy of Multiple Coronary Artery Bypass Grafts using Low Osmolar Contrast (ICD-10-PCS; 2018-07-24)
DX: I21.4 Non-ST elevation (NSTEMI) myocardial infarction (principal); I25.810 Atherosclerosis of coronary artery bypass graft(s) without angina pectoris; E11.9 Type 2 diabetes mellitus without complications; I08.3 Combined rheumatic disorders of mitral, aortic and tricuspid valves; I48.91 Unspecified atrial fibrillation; I10 Essential (primary) hypertension; E78.00 Pure hypercholesterolemia, unspecified; I25.2 Old myocardial infarction; Z87.891 Personal history of nicotine dependence; Z82.49 Family history of ischemic heart disease and other diseases of the circulatory system; Z79.84 Long term (current) use of oral hypoglycemic drugs; Z79.82 Long term (current) use of aspirin
CPT/HCPCS: 36415; 36416; 71045; 80048; 80053; 80061; 82550; 82553; 83735; 83880; 84100; 84484; 85025; 85347; 85610; 85730; 92928; 93005; 93010; 93459; 93798; 96360; 96361; 96372; 99152; 99153; C1725; C1769; C1876; C1887; J0153; J0360; J0583; J1644; J1650; J2250; J3010; Q9967

== ENCOUNTER 2018-10-22 09:42 | Inpatient (IN) | payer MEDICARE ==
[2018-10-22] MEDS ORDERED: Nitroglycerin 50 MG/250 ML BOT 250 ML ONE (09:52)
[2018-10-22 10:06] LABS: #Lymphocytes 0.5 thou/uL (1.20-3.40); #Monocytes 0.5 thou/uL (0.11-0.59); #Neutrophils 6.4 thou/uL (1.40-6.50); %Basophils 0.1 % (0.0-1.0); %Eosinophils 0.7 % (0.0-10.0); %Lymphocytes 7.1 % (21.0-51.0); %Monocytes 6.2 % (0.0-10.0); %Neutrophils 85.9 % (42.0-75.0); Hemoglobin 10.9 g/dL (14.0-18.0); Mean Corpuscular HGB CONC 33.8 g/dL (32.0-36.0); Mean Corpuscular Hemoglobin 31.9 pg (27.0-31.0); Mean Corpuscular Volume 94.2 fL (78.0-98.0); Mean Platelet Volume 6.9 fL (7.4-10.4); Platelet Count 182 thou/uL (130-400); RBC Distribution Width 13.9 % (11.5-14.5); Red Blood Cell (RBC) Count 3.41 mill/uL (4.70-6.10); White Blood Cell (WBC) Count 7.5 thou/uL (4.8-10.8)
--- NOTE | 2018-10-22 10:08 | RAD ---
Chest AP view INDICATION: Chest pain and possible myocardial infarction COMPARISON: July 23, 2018 FINDINGS: Lungs:The lungs are clear Cardiac silhouette pulmonary vasculature:There is stable cardiomegaly and midline sternotomy change. The pulmonary vasculature appears within normal limits. Pleural spaces:No pleural effusion or pneumothorax is demonstrated. Upper abdomen:No abnormality seen. Osseous structures: No acute osseous abnormality. Additional findings:None. IMPRESSION: Stable cardia megaly. No acute cardiopulmonary abnormality.
[2018-10-22 10:26] LABS: ALT (SGPT) 18 U/L (8-55); AST (SGOT) 16 U/L (5-34); Albumin 3.9 g/dL (3.4-4.8); Alkaline Phosphatase 60 U/L (40-150); Anion Gap 12 mmol/L (10-20); BUN (Urea Nitrogen) 14 mg/dL (8.4-25.7); Bilirubin, Total 0.6 mg/dL (0.2-1.2); Calc. Creatinine Clearance 0 mL/min (70-130); Calcium 8.9 mg/dL (7.8-10.44); Carbon Dioxide 22 mmol/L (23-31); Chloride 107 mmol/L (98-107); Estimated GFR-MDRD 86; Globulin 2.2 g/dL (2.4-3.5); Glucose 172 mg/dL (83-110); Potassium 3.9 mmol/L (3.5-5.1); Protein, Total 6.1 g/dL (5.8-8.1); Sodium 137 mmol/L (136-145)
[2018-10-22] MEDS ORDERED: Senokot S 8.6-50 MG TAB PO PRN (12:35)
[2018-10-22] MEDS ORDERED: hydrALAZINE 25 MG TAB ONE (15:02)
[2018-10-22] MEDS: hydrALAZINE 25 MG TAB PO SCH ×2 (15:04→21:48)
--- NOTE | 2018-10-22 17:56 | HP ---
CHIEF COMPLAINT: Chest pain. HISTORY OF PRESENT ILLNESS: The patient is a 78-year-old male with a significant past medical history of CAD, diabetes, and hypertension, who presents to the hospital with complaints of chest pain. The patient also has a history of dementia and when he stated his story to me appear a little disconnected from the story that ER had provided. The patient stated that he woke up this morning, made a cup of coffee. After drinking his coffee, felt significant amount of weakness all over. He denied any chest pain or chest pressure. Denied any diaphoresis, however, stated that he had some nausea and vomiting. However, the ER stated that the patient did have chest pain and pressure in the field and also was diaphoretic and was very nauseous. At this time, the patient was started on a nitroglycerin drip and was Life Flighted to our hospital. The patient's daughter is also at the bedside, who states that the patient has been having some memory issues. The patient currently has no chest pain or chest pressure. He denies any nausea or vomiting, and states "I'm hungry, can you give me something to eat." Apparently, the patient also had this episode about 3 months ago and was Life Flighted to [place] with similar symptoms and he was asked to follow up as an outpatient with an sap integration architect for a dementia workup. I will try and see if I can get records from [place]. The patient denies any orthopnea or PND for the past few days. He denies any shortness of breath of last week. Denied any recent new medication changes either. PAST MEDICAL HISTORY: As of the following, 1. Diabetes. 2. Hypertension. 3. CAD. 4. AFib, on anticoagulation. PAST SURGICAL HISTORY: He has had a bypass and left knee surgery. He has also had a cardiac cath. His last admission, which was in July. MEDICATIONS: As of the following; 1. Plavix 75 mg daily. 2. Eliquis 5 mg b.i.d. 3. Aspirin 81 mg daily. 4. Metformin 500 mg b.i.d. 5. Atorvastatin 40 mg at bedtime. 6. Enalapril 20 mg b.i.d. 7. Hydralazine 25 mg twice b.i.d. 8. Metoprolol 50 mg twice a day. 9. Amiodarone 200 mg oral daily. ALLERGIES: HE HAS ALLERGIC TO CODEINE. FAMILY HISTORY: History of CAD. Mother and father of an MRI. SOCIAL HISTORY: He is a former smoker. Denies any alcohol use or drug use. He is a full code. I did address this with the patient and the daughter, who was at the bedside. The patient currently lives alone. REVIEW OF SYSTEMS: All negative except for the ones mentioned above in the HPI. PHYSICAL EXAMINATION: VITAL SIGNS: As of the following; temperature 98.8, blood pressure 176/74, heart rate of 45, and 98% on room air. GENERAL: He is awake, alert, and oriented x3. Does not appear in distress. HEENT: Normocephalic, atraumatic. NECK: No lymphadenopathy noted. CARDIOVASCULAR: S1 and S2 present. No murmurs, rubs, or gallops. LUNGS: Clear to auscultation. No rhonchi or wheezes noted. ABDOMEN: Soft and nontender. Bowel sounds are present x2. EXTREMITIES: No edema. Pedal pulses are present x2. NEUROLOGIC: There are no focal deficits noted. SKIN: No cuts, lesions, or bruises noted. LABORATORY RESULTS: As of the following; WBCs of 7.5, hemoglobin of 10.9, hematocrit of 32.1, and platelets of 182. Chemistries; sodium of 137, potassium of 3.9, BUN of 14, creatinine 0.86, and glucose of 172. IMAGING DATA: EKG just indicated sinus Luke, no significant ST elevation was noted. The patient did have a chest x-ray done, which indicated stable cardiomegaly. No acute cardiopulmonary abnormalities. ASSESSMENT AND PLAN: The patient is a very pleasant 78-year-old male, who comes into the hospital with chest pain. 1. Hypertension urgency. The patient was found to have significant elevated blood pressure. He is currently on nitro drip. I will try to wean him off the nitro drip and start him on some oral medications. We will hold the beta-alejandra given his bradycardia and continue to monitor. 2. Sinus bradycardia. I am not sure if this is secondary due to his medications. We will hold off his metoprolol for now. I am unclear if this profound bradycardia could be the cause of his symptoms. 3. Chest pain. Given the patient's history of coronary artery disease, I will consult Cardiology. Also trend his troponins. He did recently have a cardiac cath, which was in July 2018 that indicated did have a bare-metal stent to the proximal first obtuse marginal bypass graft. This was his last time. We will continue his aspirin, Plavix, and his anticoagulation. We will also control his blood pressure. 4. Diabetes. We will continue his home medications. 5. Dementia. The patient has not really been diagnosed with it, however, the daughter has noticed significant memory loss and also he was told in [place] that he needs to follow up with his primary care for a dementia workup. The patient's family is concerned that the patient does live alone. However, the patient does not want to move into an assisted living. 6. Deep venous thrombosis prophylaxis. The patient is already on Eliquis. Job ID: [id number]
[2018-10-22 18:04] VITALS: BMI 25.9
[2018-10-22] MEDS ORDERED: Nitroglycerin 0.4 MG TAB (25 Tab Bottle) SL SCH (19:00)
[2018-10-22 19:40] LABS: Bilirubin Negative (Negative); Blood, Urine Negative (Negative); Clarity CLEAR (Clear); Glucose, Urine (Dipstick) 100 mg/dL (Negative); Leukocyte Negative (Negative); Nitrite Negative (Negative); Protein, Urine (Dipstick) Negative (Neg-Trace); Specific Gravity, Urine 1.017 (1.002-1.036); pH, Urine 5.5 (5.0-9.0)
[2018-10-22 19:43] LABS: Bacteria/HPF None Seen HPF (None Seen); Hyaline Casts/LPF 0-3 HYALINE CAST LPF (0-3 Hyaline); RBC/HPF 0-3 HPF (0-3); Squamous Epithelial 0-3 HPF (0-3); WBC/HPF 0-3 HPF (0-3)
[2018-10-22 19:50] LABS: Urine Culture Reflex No No
[2018-10-22 19:52] LABS: Renal Epithelial None Seen HPF (0-3); Transitional Epithelial NONE SEEN HPF (0-3)
[2018-10-22] MEDS ORDERED: Non-Formulary Item 1 EACH (Enalapril Maleate [Enalapril Maleate] 20 MG) PO SCH (21:00)
[2018-10-22] MEDS ORDERED: hydrALAZINE 25 MG TAB PO SCH (21:00)
[2018-10-22] MEDS: Apixaban 5 MG TAB PO SCH (21:48)
[2018-10-22] MEDS: Atorvastatin Calcium 40 MG TAB PO SCH (21:48)
[2018-10-22 22:53] LABS: Troponin I 0.019 ng/mL (< 0.028)
[2018-10-23] MEDS: hydrALAZINE 20 MG/ML VIAL SLOW IVP PRN (05:13)
[2018-10-23] MEDS ORDERED: cloNIDine 0.1 MG TAB PO PRN (07:30)
[2018-10-23 08:13] LABS: Anion Gap 11 mmol/L (10-20); BUN (Urea Nitrogen) 14 mg/dL (8.4-25.7); Calc. Creatinine Clearance 90 mL/min (70-130); Calcium 9.2 mg/dL (7.8-10.44); Carbon Dioxide 23 mmol/L (23-31); Chloride 110 mmol/L (98-107); Estimated GFR-MDRD Greater than 90; Glucose 123 mg/dL (83-110); Potassium 3.9 mmol/L (3.5-5.1); Sodium 140 mmol/L (136-145)
[2018-10-23 08:35] LABS: #Eosinphils 0.1 thou/uL (0.0-0.7); #Lymphocytes 1.1 thou/uL (1.20-3.40); #Monocytes 0.6 thou/uL (0.11-0.59); #Neutrophils 4.7 thou/uL (1.40-6.50); %Basophils 0.2 % (0.0-1.0); %Eosinophils 2.2 % (0.0-10.0); %Lymphocytes 16.3 % (21.0-51.0); %Monocytes 8.7 % (0.0-10.0); %Neutrophils 72.5 % (42.0-75.0); Hemoglobin 11.2 g/dL (14.0-18.0); Mean Corpuscular HGB CONC 31.7 g/dL (32.0-36.0); Mean Corpuscular Hemoglobin 30.1 pg (27.0-31.0); Mean Corpuscular Volume 94.8 fL (78.0-98.0); Mean Platelet Volume 7.6 fL (7.4-10.4); Platelet Count 193 thou/uL (130-400); Red Blood Cell (RBC) Count 3.71 mill/uL (4.70-6.10); White Blood Cell (WBC) Count 6.5 thou/uL (4.8-10.8)
[2018-10-23] MEDS: Apixaban 5 MG TAB PO SCH ×2 (09:23→20:36)
[2018-10-23] MEDS: Amiodarone 200 MG TAB PO SCH (09:23)
[2018-10-23] MEDS: hydrALAZINE 25 MG TAB PO SCH ×3 (09:23→20:36)
[2018-10-23] MEDS: Clopidogrel Bisulfate 75 MG TAB PO SCH (09:24)
[2018-10-23] MEDS: Aspirin Chewable 81 MG TAB PO SCH (09:24)
[2018-10-23] MEDS ORDERED: Nitroglycerin 0.4 MG TAB (25 Tab Bottle) ONE (09:56)
[2018-10-23 10:36] LABS: Troponin I Less than 0.010 ng/mL (< 0.028)
--- NOTE | 2018-10-23 10:55 | CT ---
CT BRAIN WITHOUT CONTRAST: HISTORY:Left arm numbness COMPARISON:None FINDINGS: There are foci of decreased attenuation in the periventricular white matter, consistent with chronic small vessel ischemic disease. No evidence of acute infarct, hemorrhage, midline shift or abnormal extra-axial fluid collections is seen. The ventricular size is appropriate and the basilar cisterns are patent. The bony calvarium is intact. The visualized paranasal sinuses and mastoid air cells are well aerated. IMPRESSION: No CT evidence of acute intracranial process.
--- NOTE | 2018-10-23 12:42 | PDOC.PN ---
- Subjective Encounter Start Date: 10/23/18 Encounter Start Time: 09:45 Subjective: pt on initial rounds was doing well only complained of some nausea. -: at 0954 code green called pt complained of chest pain and left arm numbness - Objective Vital Signs & Weight: Vital Signs (12 hours) Temp Pulse Pulse Pulse Resp Resp Resp 10/23/18 12:00 98.3 F 93 18 10/23/18 10:16 93 79 20 20 10/23/18 09:23 55 L 10/23/18 08:00 98.1 F 55 L 17 10/23/18 05:30 71 10/23/18 05:13 66 10/23/18 05:00 98 F 66 18 10/23/18 03:37 98.2 F 66 18 BP BP BP Pulse Ox Pulse Ox Pulse Ox 10/23/18 12:00 159/71 H 97 10/23/18 10:16 187/81 H 175/76 H 99 96 10/23/18 09:23 10/23/18 08:00 182/81 H 98 10/23/18 05:30 157/61 H 10/23/18 05:13 10/23/18 05:00 230/80 H 98 10/23/18 03:37 95 Weight Weight 182 lb 8 oz I&O: 10/22/18 10/23/18 10/24/18 06:59 06:59 06:59 Intake Total 240 Output Total 600 Balance -360 Result Diagrams: 10/23/18 07:21 10/23/18 07:21 Additional Labs: Accuchecks 10/23/18 09:57 POC Glucose 237 H Phys Exam - Physical Examination Respiratory: no wheezing, no rales, no rhonchi, wheezing present, clear to auscultation bilateral Cardiovascular: RRR, no significant murmur, no rub, gallop, irregular Gastrointestinal: soft, non-tender, no distention, positive bowel sounds Musculoskeletal: no edema, pulses present, edema present Neurological: non-focal, normal sensation, moves all 4 limbs Dx/Plan (1) Chest pain Code(s): R07.9 - CHEST PAIN, UNSPECIFIED Status: Acute (2) Memory deficit Code(s): R41.3 - OTHER AMNESIA Status: Acute (3) DM2 (diabetes mellitus, type 2) Status: Acute (4) HTN (hypertension) Code(s): I10 - ESSENTIAL (PRIMARY) HYPERTENSION Status: Acute (5) CAD (coronary artery disease) Code(s): I25.10 - ATHSCL HEART DISEASE OF [place] CORONARY ARTERY W/O ANG PCTRS Status: Acute - Plan pt did have t wave changes on ekg. cardio consulted -: he is on asa/plavix and AC. ct brain no acute process. -: no focal defecit on exam. -: will get ruq ultrasound since pt has been complaining of nausea * . Review of Systems - Review of Systems Cardiovascular: chest pain Neurological: Numbness - Medications/Allergies Allergies/Adverse Reactions: Allergies Allergy/AdvReac Type Severity Reaction Status Date / Time codeine Allergy Verified 10/22/18 17:45 Medications: Current Medications Acetaminophen (Tylenol) 650 mg PO Q4H PRN PRN Reason: Headache/Fever/Mild Pain (1-3) Amiodarone HCl (Cordarone) 200 mg PO DAILY [facility] Last Admin: 10/23/18 09:23 Dose: 200 mg Apixaban (Eliquis) 5 mg PO BID [facility] Last Admin: 10/23/18 09:23 Dose: 5 mg Aspirin (Aspirin Chewable) 81 mg PO DAILY [facility] Last Admin: 10/23/18 09:24 Dose: 81 mg Atorvastatin Calcium (Lipitor) 40 mg PO HS [facility] Last Admin: 10/22/18 21:48 Dose: 40 mg Clonidine (Catapres) 0.1 mg PO BID PRN PRN Reason: Blood Pressure Clopidogrel Bisulfate (Plavix) 75 mg PO DAILY [facility] Last Admin: 10/23/18 09:24 Dose: 75 mg Enalapril Maleate (Vasotec) 20 mg PO BID [facility] Last Admin: 10/23/18 09:23 Dose: 20 mg Hydralazine HCl (Apresoline) 25 mg PO TID [facility] Last Admin: 10/23/18 09:23 Dose: 25 mg Hydralazine HCl (Apresoline) 10 mg SLOW IVP Q4H PRN PRN Reason: SBP > 180 Last Admin: 10/23/18 05:13 Dose: 10 mg Isosorbide Mononitrate (Imdur) 30 mg PO DAILY [facility] Metformin HCl (Glucophage) 500 mg PO BID[facility] Pantoprazole Sodium (Protonix) 40 mg PO DAILY [facility] Last Admin: 10/23/18 09:23 Dose: 40 mg Senna/Docusate Sodium (Senokot S) 2 tab PO BID PRN PRN Reason: Constipation Sodium Chloride (Flush - Normal Saline) 10 ml IVF Q12HR NIKI Last Admin: 10/23/18 09:24 Dose: 10 ml Sodium Chloride (Flush - Normal Saline) 10 ml IVF PRN PRN PRN Reason: Saline Flush
[2018-10-23 15:10] LABS: Troponin I 0.022 ng/mL (< 0.028)
--- NOTE | 2018-10-23 16:40 | ULT ---
US Gallbladder RUQ History: [Abdominal pain] Comparison: None. Findings: Real-time grayscale and color evaluation of the right upper quadrant of the abdomen was per formed. Fissures first of the pancreas and IVC are unremarkable. No hepatic mass. Cholelithiasis without cholecystitis. Gallbladder wall thickness is normal. Common bile duct measures 4 mm, normal. Portal vein is patent with antegrade flow. Multiple cysts of the right kidney largest measuring up to 4.9 cm. Impression: Cholelithiasis without cholecystitis.
[2018-10-23] MEDS: metFORMIN 500 MG TAB PO SCH (16:54)
--- NOTE | 2018-10-23 17:22 | EKG ---
Test Reason : CODE GREEN Blood Pressure : / mmHG Vent. Rate : 092 BPM Atrial Rate : 092 BPM P-R Int : 160 ms QRS Dur : 108 ms QT Int : 378 ms P-R-T Axes : 259 038 261 degrees QTc Int : 467 ms Unusual P axis, possible ectopic atrial rhythm Left ventricular hypertrophy with repolarization abnormality Possible Inferior infarct (cited on or before 14-DEC-1994) Marked ST abnormality, possible anterior subendocardial injury Abnormal ECG When compared with ECG of 22-OCT-2018 09:45, (Unconfirmed) Ectopic atrial rhythm has replaced Sinus rhythm Vent. rate has increased BY [address] more depressed in Anterior leads Inverted T waves have replaced nonspecific T wave abnormality in Lateral leads Confirmed by DR. Contreras HU ([id number]) on 10/23/2018 5:22:13 PM Referred By: VESNA Confirmed By:DR. Contreras [facility]
[2018-10-23] MEDS ORDERED: HumaLOG 300 UNITS/3 ML VIAL SC PRN (18:11)
[2018-10-23] MEDS ORDERED: Dextrose 5% in Water 1,000 ML IV PRN (18:11)
[2018-10-23] MEDS ORDERED: Dextrose 50% Abboject 50 ML SYRINGE SLOW IVP PRN (18:11)
[2018-10-23 18:59] LABS: Troponin I 0.018 ng/mL (< 0.028)
[2018-10-23] MEDS: Atorvastatin Calcium 40 MG TAB PO SCH (20:36)
[2018-10-23] MEDS: Acetaminophen 325 MG TAB PO PRN (20:58)
--- NOTE | 2018-10-24 01:46 | CON ---
DATE OF CONSULTATION: HISTORY OF PRESENT ILLNESS: Israel Montero is a 78-year-old white male, whom I evaluated here in December 1994. In 1983, he had an inferior myocardial infarction and then presented here in December 1994 with 2-week history of increasing exertional chest discomfort. He underwent cardiac catheterization and had moderate inferior and inferobasal hypokinesis as well as mild anterior hypokinesis. Ejection fraction was 40%. There was an 80% proximal LAD, 40% mid LAD, 50% proximal circumflex, 80% first obtuse marginal. There also was a 60% and 50% mid circumflex lesion. The right coronary was totally occluded in its proximal portion and filled retrograde from the left as well as antegrade via bridging collaterals. It is recommended that he undergo CABG. Surgery was offered here; however, he wished to seek care elsewhere due to lack of funding. Ultimately, he went to [facility] in [place] and underwent CABG x3 in December 1994. He had a SILVERIO to the LAD and saphenous vein graft to the obtuse marginal and the right posterior descending coronary artery. He apparently had an uneventful clinical course postoperatively. Mr. Montero did not return for followup. I did not see him again until September 2013 as he was being followed by [facility]. He apparently had atrial flutter on EKG in December 2012 and was in sinus rhythm in February 2013. He continued to have palpitations when I saw him in January 2013, he was in atrial flutter. Carotid massage was performed without slowing the rhythm. He was placed on Eliquis and sent for ablation, which was performed here on April 27, 2013. He was seen back in the office in September 2013, stating that he was walking 2 miles per day and that was the best he had felt in years. In January 2017 when he was seen in the office, he was doing very well. He then presented here at [place] in April 2018 with atrial fibrillation with rapid ventricular response. He was placed on intravenous Cardizem. Ultimately, he underwent ESPERANZA and electrical cardioversion by Dr. Quiroz. Echocardiogram revealed ejection fraction of 50% to 55% with mitral annular calcification, moderate mitral regurgitation, moderate aortic stenosis, moderate to severe tricuspid regurgitation. Transesophageal echo revealed ejection fraction of 50% to 55% with moderate left atrial enlargement, small left atrial appendage without evidence of thrombus. Planimetry of the aortic valve showed an area of 1.2 sq cm suggestive of moderate aortic stenosis. There was moderate to severe tricuspid regurgitation. He underwent electrical cardioversion and with 100 joules, successfully converted to sinus rhythm. He had been loaded with amiodarone and was discharged on amiodarone and Eliquis. He was readmitted in July 2018. He stated that he ran out of Eliquis 1 week prior to that and he was no longer taking amiodarone. He then developed retrosternal chest pressure that was very severe. He called EMS and apparently, he had ST-segment depression V2 through V6. Paramedics gave him nitroglycerin, and fentanyl and chest pain ultimately resolved as well as EKG changes. None of that information was recorded for review. He had a non-STEMI. He underwent cardiac catheterization, which revealed inferobasal akinesis with ejection fraction of 45% to 50%. The LAD was totally occluded. The circumflex had a totally occluded first obtuse marginal. There was a 70% mid circumflex lesion and 70% lesions in the second obtuse marginal. The right coronary artery was totally occluded proximally and filled faintly retrograde from the SILVERIO to the LAD. Bypass grafts revealed patent SILVERIO to the LAD. The obtuse marginal graft had an 80% proximal stenosis. The graft to the right coronary artery was totally occluded. He then underwent placement of a bare-metal stent - REBEL 3.5 x 12 and 3.5 x 16 in the obtuse marginal graft. He denies any chest discomfort like he had at that time. He was seen in the office on September 04. He denied any chest pain or shortness of breath and had increased energy level. He took Plavix for 1 month and then discontinued. He apparently has been felt by physicians in [place] that he has dementia. He states that he called paramedics due to having a feeling of lightheadedness and feeling like he would pass out. He denied any chest discomfort. Cardiac enzymes have been unremarkable. PAST MEDICAL HISTORY: Hypertension, hyperlipidemia, history of flutter ablation as well as history of cardioversion for atrial fibrillation in April 2018 and diabetes. MEDICATIONS: 1. Aspirin 81 daily. 2. Atorvastatin 40 at bedtime. 3. Metformin 500 mg b.i.d. 4. Enalapril 20 b.i.d. 5. Metoprolol 50 b.i.d. 6. Hydralazine 25 b.i.d. 7. Amiodarone 200 mg daily. 8. Eliquis 5 b.i.d. ALLERGIES: CODEINE. SOCIAL HISTORY: He is a former smoker. He stopped around the time of his heart attack in 1983. He occasionally drinks. REVIEW OF SYSTEMS: A 10-point review of systems is otherwise unremarkable. PHYSICAL EXAMINATION: VITAL SIGNS: Blood pressure 169/74, pulse of 65. HEENT: PERRL. NECK: Supple. CHEST: Clear. CARDIAC: S1 and S2 are normal without any S3 or S4. There is a 1/6 systolic murmur along the left sternal border. Carotid upstrokes normal. ABDOMEN: Normal bowel sounds. Abdomen is obese. EXTREMITIES: Revealed no clubbing, cyanosis, or edema. NEUROLOGIC: Grossly intact. SKIN: Warm and dry. LABORATORY DATA: EKG revealed low atrial rhythm, possible old inferior infarction, ST depression V2 through V4. He has had episodes of fairly regular SVT at approximately 150 per minute since being admitted. Hemoglobin 11.2, hematocrit 35.2, white count 6500, platelets 193,000. Sodium 140, potassium 3.9, chloride 110, carbon dioxide 23, BUN 14, creatinine 0.78. Cardiac enzymes x4 are normal. IMPRESSION: 1. Feeling of dizziness or that he could pass out. He has had some arrhythmias here with supraventricular tachycardia. He also has episodes of low atrial pacemaker. This certainly could be due to metoprolol and amiodarone. However, there are code greens from the satellite project site monitor and he is in sinus rhythm during these code greens. 2. History of [id number] myocardial infarction in July 2018 with bare-metal stent placement in the obtuse marginal graft. 3. Status post coronary artery bypass graft x3 with SILVERIO to the LAD, patent obtuse marginal graft recently stented and right coronary graft totally occluded. 4. Mild left ventricular dysfunction with ejection fraction of 45% to 50%. 5. Status post cardioversion for atrial fibrillation in April 2018. After that, he was not compliant with amiodarone and Eliquis until July 2018. 6. History of atrial flutter ablation in April 2013. He also underwent ablation of 3 different atrial tachycardic sites in August 2013. 7. Hypertension. 8. Diabetes. 9. Hyperlipidemia. 10. Former smoker. PLAN: To me, Mr. Montero denies any chest discomfort that led him to this hospitalization, although other physicians that have seen him in the emergency room states that he was having chest pain. He denies that he is having any type of chest discomfort like he did in July 2018, when he had a stent placed in the obtuse marginal graft. His main complaint at home was that of lightheadedness and feeling like he would pass out. He certainly has had several arrhythmias including a supraventricular tachycardia that appears to be fairly regular and episodes of low atrial rhythm. Electrophysiology consultation will be requested. There also is a question of dementia and I am not certain that he actually is taking his medications, although he states that he is. Job ID: [id number]
[2018-10-24] MEDS: Apixaban 5 MG TAB PO SCH (08:48)
[2018-10-24] MEDS: Amiodarone 200 MG TAB PO SCH (08:50)
[2018-10-24] MEDS: Clopidogrel Bisulfate 75 MG TAB PO SCH (08:50)
[2018-10-24] MEDS: hydrALAZINE 25 MG TAB PO SCH ×3 (08:50→19:49)
[2018-10-24] MEDS: Aspirin Chewable 81 MG TAB PO SCH (08:50)
[2018-10-24] MEDS: metFORMIN 500 MG TAB PO SCH ×2 (08:50→17:42)
[2018-10-24] MEDS: hydrALAZINE 20 MG/ML VIAL SLOW IVP PRN (12:11)
--- NOTE | 2018-10-24 14:27 | CON ---
DATE OF CONSULTATION: 10/24/2018 HISTORY OF PRESENT ILLNESS: I am seeing Mr. 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 His problems are; 1. Atrial arrhythmias. a. Remote history of atrial flutter status post ablation of the cavotricuspid isthmus in April 2013. b. Recurrent right atrial tachycardia prompting an ablation in August 16, 2013, ablating right appendage low right atrial foci. c. Paroxysmal atrial fibrillation prompting a ESPERANZA-guided cardioversion in April 2018. Subsequently, amiodarone loading and p.o. therapy since then. d. Occasionally admit noncompliance with the amiodarone medication. 2. History of coronary artery disease with preserved LVEF. a. Remote history of coronary artery bypass graft surgery in 1994 following a myocardial infarction. b. Status post left heart catheterization in July 2018 demonstrating patent SILVERIO to LAD and stent was SVG to obtuse marginal complete RCA occlusion with collaterals from the left showing LVEF 45% to 50% of inferolateral akinesis. c. Chest discomfort. 3. History of dementia, possible cause for medical noncompliance. 4. CHADS-VASc score with history of hypertension, diabetes, age, and vascular heart disease and heart failure at 6 on Eliquis therapy. 5. Valvular heart disease with moderate 1.2 square cm valve area by planimetry on ESPERANZA, [id number] tricuspid regurgitation. ALLERGIES: CODEINE. MEDICATIONS: At home include; 1. Aspirin. 2. Lipitor. 3. Metformin. 4. Enalapril. 5. Metoprolol. 6. Hydralazine. 7. Amiodarone 200 mg a day. 8. Eliquis 5 mg twice a day. SUBJECTIVE: Mr. Montero is here with feeling lightheaded, but no complete loss of consciousness. No chest pains at that time, dizziness. He came through ambulance. In ER, his cardiac enzymes were unremarkable. While on telemetry, he did develop an episode of rapid heartbeats. He had also some chest discomforts as well. Going for cord green in the hospital, at which time, he also had some chest pains associated with rapid heartbeats. His episode of bradycardia at rate of 49 beats per minute. He denies palpitations, dizziness, or loss of consciousness now. He has no PND or orthopnea since fluid overload. Denies stroke-like symptoms or bleeding issues. Rest of 12-point system otherwise unremarkable. PAST MEDICAL HISTORY: As above. SOCIAL HISTORY: The patient denies smoking, EtOH, or drug abuse. FAMILY HISTORY: Not contributory. PAST SURGICAL HISTORY: Significant for bypass surgery as above as well as left knee surgery. In July, he had a left heart catheterization. OBJECTIVE DATA: VITAL SIGNS: Blood pressure is elevated at 200/86, heart rate is 72, respiratory rate is 18, and temperature 98.5 degrees Fahrenheit. Prior blood pressure was 168/70. GENERAL: Alert and oriented man, in no apparent distress. No jaundice or cyanosis is noted. NECK: Supple. Jugular veins not distended. CHEST: Coarse without crackles. HEART: Sounds are regular to rate and rhythm 106, systolic ejection murmur is heard. No gallop is appreciated. ABDOMEN: Benign. Bowel sounds positive. EXTREMITIES: Lower extremities without edema, clubbing, or cyanosis. Pulses are adequate. NEUROLOGIC: The patient is nonfocal. MUSCULOSKELETAL: No joint swelling or deformity. SKIN: Without rash. LABORATORY DATA: White cell count is 6.5, hemoglobin is 11.2, and platelet count is 193. Sodium 140, potassium 3.9, BUN is 14, and creatinine 0.78. Troponin I is 0.018 and 0.22 consecutively. IMAGING STUDIES: EKG is reviewed. Initial EKG reveals sinus bradycardia, rate of 62 beats per minute. Subsequent EKG reveals possible ectopic atrial rhythm. Cannot rule out 2:1 AV conduction. Occasional 1:1 AV conduction is also seen with more rapid rates on telemetry strips. The chest x-ray on 10/14/2018, shows cardiomegaly. No acute cardiopulmonary abnormality. Brain CT 10/23/2018, shows no evidence of acute intracranial processes. ASSESSMENT AND PLAN: Mr. Montero is a pleasant 78-year-old man with prior history of recurrent atrial arrhythmias. He underwent two prior ablations, a cavotricuspid isthmus flutter ablation and a multifocal right atrial tachycardia ablation was also performed currently by Dr. Alanis in 2013. He also had atrial fibrillation in 2018 by report. He underwent a transesophageal echocardiogram cardioversion and subsequent amiodarone loading in April 2018. He has significant coronary artery disease, prior bypass surgery, but in July of this year, his coronary status was found to be stable, although multiple saphenous graft occlusion or stenosis is noted. Currently manage medically. He returns with dizzy, near syncopal spell, did not completely pass out. His rhythm is alternating between sinus bradyarrhythmia to active atrial tachy or tachyarrhythmias occasionally, well controlled rates occasionally, not so well controlled rapid AV conduction is seen. Part of this could be provoked by his medical noncompliance. He is not well compliant with his amiodarone and I am concerned that he may be also poorly compliant with the rest of his medication based on his mild baseline dementia. We have discussed potential treatment options in favor of resuming amiodarone and continue medical therapy, but if this is not going to be achieving sufficient control, he may be considered for further additional therapy. Ablation options could be entertained, although he likely will need extensive left and right atrial ablation as well induced valvular heart disease. He likely will be difficult to admit all atrial arrhythmias. Alternatively, pacing and ablating the AV node could be a potential option as well on him. We will discuss these options with Dr. Stein and formulate a final plan. Therefore, now again continue amiodarone and continue monitoring. Job ID: [id number] [facility]
--- NOTE | 2018-10-24 18:20 | PDOC.PN ---
- Subjective Encounter Start Date: 10/24/18 Encounter Start Time: 09:45 Subjective: pt up in bed wants to go home - Objective Vital Signs & Weight: Vital Signs (12 hours) Temp Pulse Resp BP BP Pulse Ox 10/24/18 15:22 98.4 F 93 18 126/79 97 10/24/18 13:39 179/75 H 10/24/18 12:45 187/80 H 10/24/18 12:11 72 10/24/18 11:50 98.5 F 72 18 200/86 H 96 10/24/18 08:50 70 98 10/24/18 08:49 168/70 H 10/24/18 07:32 98.5 F 70 18 175/79 H 98 Weight Weight 178 lb 1.6 oz I&O: 10/23/18 10/24/18 10/25/18 06:59 06:59 06:59 Intake Total 240 360 Output Total 600 700 Balance -360 -340 Result Diagrams: 10/23/18 07:21 10/23/18 07:21 Additional Labs: Accuchecks 10/24/18 10/24/18 10/24/18 16:56 11:30 06:01 POC Glucose 128 H 169 H 112 H 10/23/18 20:38 POC Glucose 133 H Phys Exam - Physical Examination Respiratory: no wheezing, no rales, no rhonchi, wheezing present, clear to auscultation bilateral Cardiovascular: RRR, no significant murmur, no rub, gallop, irregular Gastrointestinal: soft, non-tender, no distention, positive bowel sounds Dx/Plan (1) Chest pain Code(s): R07.9 - CHEST PAIN, UNSPECIFIED Status: Acute (2) Memory deficit Code(s): R41.3 - OTHER AMNESIA Status: Acute (3) DM2 (diabetes mellitus, type 2) Status: Acute (4) HTN (hypertension) Code(s): I10 - ESSENTIAL (PRIMARY) HYPERTENSION Status: Acute (5) CAD (coronary artery disease) Code(s): I25.10 - ATHSCL HEART DISEASE OF [place] CORONARY ARTERY W/O ANG PCTRS Status: Acute - Plan bp stable, awaiting ep recommendation -: not sure if pt will agree to go to snf. he at times forgets to take his med -: continue to monitor * . Review of Systems - Review of Systems Cardiovascular: negative: chest pain, palpitations, orthopnea, paroxysmal nocturnal dyspnea, edema, light headedness, other Gastrointestinal: negative: Nausea, Vomiting, Abdominal Pain, Diarrhea, Constipation, Melena, Hematochezia, Other - Medications/Allergies Allergies/Adverse Reactions: Allergies Allergy/AdvReac Type Severity Reaction Status Date / Time codeine Allergy Verified 10/22/18 17:45 Medications: Current Medications Acetaminophen (Tylenol) 650 mg PO Q4H PRN PRN Reason: Headache/Fever/Mild Pain (1-3) Last Admin: 10/23/18 20:58 Dose: 650 mg Amiodarone HCl (Cordarone) 200 mg PO DAILY [facility] Last Admin: 10/24/18 08:50 Dose: 200 mg Apixaban (Eliquis) 5 mg PO BID [facility] Last Admin: 10/24/18 08:48 Dose: 5 mg Aspirin (Aspirin Chewable) 81 mg PO DAILY [facility] Last Admin: 10/24/18 08:50 Dose: 81 mg Atorvastatin Calcium (Lipitor) 40 mg PO HS [facility] Last Admin: 10/23/18 20:36 Dose: 40 mg Clonidine (Catapres) 0.1 mg PO BID PRN PRN Reason: Blood Pressure Clopidogrel Bisulfate (Plavix) 75 mg PO DAILY [facility] Dextrose/Water (Dextrose 50%) 25 gm SLOW IVP PRN PRN PRN Reason: Hypoglycemia Enalapril Maleate (Vasotec) 20 mg PO BID [facility] Last Admin: 10/24/18 08:49 Dose: 20 mg Glucagon (Glucagon) 1 mg IM PRN PRN PRN Reason: Hypoglycemia Hydralazine HCl (Apresoline) 25 mg PO TID [facility] Last Admin: 10/24/18 15:26 Dose: 25 mg Hydralazine HCl (Apresoline) 10 mg SLOW IVP Q4H PRN PRN Reason: SBP > 180 Last Admin: 10/24/18 12:11 Dose: 10 mg Dextrose/Water (D5w) 1,000 mls @ 0 mls/hr IV .Q0M PRN PRN Reason: Hypoglycemia Insulin Human Lispro (Humalog) 0 units SC .MILD SLIDING SCALE PRN PRN Reason: Mild Correctional Scale Last Admin: 10/24/18 12:10 Dose: 2 unit Isosorbide Mononitrate (Imdur Er) 30 mg PO DAILY [facility] Last Admin: 10/24/18 08:49 Dose: Not Given Metformin HCl (Glucophage) 500 mg PO BID-WM [facility] Last Admin: 10/24/18 17:42 Dose: 500 mg Pantoprazole Sodium (Protonix) 40 mg PO DAILY [facility] Last Admin: 10/24/18 08:51 Dose: 40 mg Senna/Docusate Sodium (Senokot S) 2 tab PO BID PRN PRN Reason: Constipation Sodium Chloride (Flush - Normal Saline) 10 ml IVF Q12HR [facility] Last Admin: 10/24/18 08:53 Dose: 10 ml Sodium Chloride (Flush - Normal Saline) 10 ml IVF PRN PRN PRN Reason: Saline Flush
[2018-10-24] MEDS: Atorvastatin Calcium 40 MG TAB PO SCH (19:49)
[2018-10-24] MEDS: Acetaminophen 325 MG TAB PO PRN (19:57)
[2018-10-25 06:42] LABS: Anion Gap 11 mmol/L (10-20); BUN (Urea Nitrogen) 12 mg/dL (8.4-25.7); Calc. Creatinine Clearance 82 mL/min (70-130); Calcium 9.2 mg/dL (7.8-10.44); Carbon Dioxide 26 mmol/L (23-31); Chloride 108 mmol/L (98-107); Estimated GFR-MDRD 89; Glucose 113 mg/dL (83-110); Potassium 4.1 mmol/L (3.5-5.1); Sodium 141 mmol/L (136-145)
[2018-10-25 06:59] LABS: #Eosinphils 0.1 thou/uL (0.0-0.7); #Lymphocytes 1.3 thou/uL (1.20-3.40); #Monocytes 0.6 thou/uL (0.11-0.59); #Neutrophils 3.4 thou/uL (1.40-6.50); %Basophils 0.7 % (0.0-1.0); %Eosinophils 2.3 % (0.0-10.0); %Lymphocytes 23.2 % (21.0-51.0); %Monocytes 10.9 % (0.0-10.0); Hemoglobin 11.8 g/dL (14.0-18.0); Mean Corpuscular HGB CONC 32.8 g/dL (32.0-36.0); Mean Corpuscular Hemoglobin 30.4 pg (27.0-31.0); Mean Corpuscular Volume 92.8 fL (78.0-98.0); Mean Platelet Volume 7.2 fL (7.4-10.4); Platelet Count 216 thou/uL (130-400); RBC Distribution Width 14.1 % (11.5-14.5); Red Blood Cell (RBC) Count 3.87 mill/uL (4.70-6.10); White Blood Cell (WBC) Count 5.4 thou/uL (4.8-10.8)
[2018-10-25] MEDS: hydrALAZINE 25 MG TAB PO SCH ×3 (08:01→20:04)
[2018-10-25] MEDS: Aspirin Chewable 81 MG TAB PO SCH (08:01)
[2018-10-25] MEDS: Amiodarone 200 MG TAB PO SCH (08:02)
[2018-10-25] MEDS: Clopidogrel Bisulfate 75 MG TAB PO SCH (08:02)
[2018-10-25] MEDS: metFORMIN 500 MG TAB PO SCH ×2 (08:06→16:52)
[2018-10-25] MEDS ORDERED: Iopamidol 370 76% 50 ML VIAL FS ONE (10:35)
[2018-10-25] MEDS ORDERED: PROPOFOL 200 MG/20 ML VIAL ONE (13:38)
[2018-10-25] MEDS ORDERED: Propofol 500 MG/50 ML VIAL ONE (17:32)
[2018-10-25] MEDS ORDERED: Fentanyl 100 MCG/2 ML VIAL ONE (17:32)
[2018-10-25] MEDS: Atorvastatin Calcium 40 MG TAB PO SCH (20:04)
--- NOTE | 2018-10-25 21:53 | PDOC.PN ---
- Subjective Encounter Start Date: 10/25/18 Encounter Start Time: 10:30 Subjective: pt up in bed no complains - Objective Vital Signs & Weight: Vital Signs (12 hours) Temp Pulse Resp BP BP BP Pulse Ox 10/25/18 20:05 177/83 H 10/25/18 20:04 85 177/83 H 10/25/18 15:30 98.7 F 73 18 179/81 H 97 10/25/18 11:28 75 18 126/69 97 Weight Weight 176 lb 14.4 oz I&O: 10/24/18 10/25/18 10/26/18 06:59 06:59 06:59 Intake Total 360 Output Total 700 Balance -340 Result Diagrams: 10/25/18 05:22 10/25/18 05:22 Additional Labs: Accuchecks 10/25/18 10/25/18 10/25/18 19:49 11:09 06:13 POC Glucose 108 116 H 123 H Phys Exam - Physical Examination Respiratory: no wheezing, no rales, no rhonchi, clear to auscultation bilateral Cardiovascular: RRR, no significant murmur, no rub, gallop Gastrointestinal: soft, non-tender, no distention, positive bowel sounds Dx/Plan (1) Chest pain Code(s): R07.9 - CHEST PAIN, UNSPECIFIED Status: Acute (2) Memory deficit Code(s): R41.3 - OTHER AMNESIA Status: Acute (3) DM2 (diabetes mellitus, type 2) Status: Acute (4) HTN (hypertension) Code(s): I10 - ESSENTIAL (PRIMARY) HYPERTENSION Status: Acute (5) CAD (coronary artery disease) Code(s): I25.10 - ATHSCL HEART DISEASE OF [place] CORONARY ARTERY W/O ANG PCTRS Status: Acute - Plan blood pressure labile, pt to undergo ablation and pacing -: spoke with pt and family have agree on home health -: since pt forgets to take his meds. will need dementia workup outpatient * . Review of Systems - Review of Systems Cardiovascular: negative: chest pain, palpitations, orthopnea, paroxysmal nocturnal dyspnea, edema, light headedness, other Gastrointestinal: negative: Nausea, Vomiting, Abdominal Pain, Diarrhea, Constipation, Melena, Hematochezia, Other - Medications/Allergies Allergies/Adverse Reactions: Allergies Allergy/AdvReac Type Severity Reaction Status Date / Time codeine Allergy Verified 10/22/18 17:45 Medications: Current Medications Acetaminophen (Tylenol) 650 mg PO Q4H PRN PRN Reason: Headache/Fever/Mild Pain (1-3) Last Admin: 10/24/18 19:57 Dose: 650 mg Amiodarone HCl (Cordarone) 200 mg PO DAILY [facility] Last Admin: 10/25/18 08:02 Dose: 200 mg Apixaban (Eliquis) 5 mg PO BID [facility] Last Admin: 10/24/18 08:48 Dose: 5 mg Aspirin (Aspirin Chewable) 81 mg PO DAILY [facility] Last Admin: 10/25/18 08:01 Dose: 81 mg Atorvastatin Calcium (Lipitor) 40 mg PO HS [facility] Last Admin: 10/25/18 20:04 Dose: 40 mg Cefazolin Sodium/Dextrose (Ancef) 1 gm IVPB 0100,0900,1700 [facility] Stop: 10/26/18 09:01 Cephalexin (Keflex) 500 mg PO Q8HR [facility] Stop: 11/01/18 23:59 Clonidine (Catapres) 0.1 mg PO BID PRN PRN Reason: Blood Pressure Last Admin: 10/25/18 08:02 Dose: 0.1 mg Clopidogrel Bisulfate (Plavix) 75 mg PO DAILY [facility] Last Admin: 10/25/18 08:02 Dose: 75 mg Dextrose/Water (Dextrose 50%) 25 gm SLOW IVP PRN PRN PRN Reason: Hypoglycemia Enalapril Maleate (Vasotec) 20 mg PO BID [facility] Last Admin: 10/25/18 20:05 Dose: 20 mg Glucagon (Glucagon) 1 mg IM PRN PRN PRN Reason: Hypoglycemia Hydralazine HCl (Apresoline) 25 mg PO TID [facility] Last Admin: 10/25/18 20:04 Dose: 25 mg Hydralazine HCl (Apresoline) 10 mg SLOW IVP Q4H PRN PRN Reason: SBP > 180 Last Admin: 10/24/18 12:11 Dose: 10 mg Dextrose/Water (D5w) 1,000 mls @ 0 mls/hr IV .Q0M PRN PRN Reason: Hypoglycemia Insulin Human Lispro (Humalog) 0 units SC .MILD SLIDING SCALE PRN PRN Reason: Mild Correctional Scale Last Admin: 10/24/18 12:10 Dose: 2 unit Isosorbide Mononitrate (Imdur Er) 30 mg PO DAILY [facility] Last Admin: 10/25/18 08:01 Dose: 30 mg Metformin HCl (Glucophage) 500 mg PO BID-[facility] Last Admin: 10/25/18 16:52 Dose: Not Given Pantoprazole Sodium (Protonix) 40 mg PO DAILY [facility] Last Admin: 10/25/18 08:01 Dose: 40 mg Senna/Docusate Sodium (Senokot S) 2 tab PO BID PRN PRN Reason: Constipation Sodium Chloride (Flush - Normal Saline) 10 ml IVF Q12HR [facility] Last Admin: 10/25/18 20:06 Dose: 10 ml Sodium Chloride (Flush - Normal Saline) 10 ml IVF PRN PRN PRN Reason: Saline Flush
[2018-10-26] MEDS: ceFAZolin Sodium 1 GM/Dextrose 50 ML BAG IVPB SCH ×2 (00:40→08:40)
[2018-10-26] MEDS: hydrALAZINE 25 MG TAB PO SCH ×2 (08:42→15:45)
[2018-10-26] MEDS: Aspirin Chewable 81 MG TAB PO SCH (08:42)
[2018-10-26] MEDS: metFORMIN 500 MG TAB PO SCH ×2 (08:42→16:53)
[2018-10-26] MEDS: Clopidogrel Bisulfate 75 MG TAB PO SCH (08:42)
[2018-10-26] MEDS: Amiodarone 200 MG TAB PO SCH (08:42)
--- NOTE | 2018-10-26 11:41 | PDOC.PN ---
- Subjective Encounter Start Date: 10/26/18 Encounter Start Time: 08:45 -: old records requested/rev Patient seen and examined. No new complaints. No overnight events - Objective MAR Reviewed: Yes Vital Signs & Weight: Vital Signs (12 hours) Temp Pulse Resp BP BP Pulse Ox 10/26/18 07:19 98.1 F 76 18 169/73 H 95 10/26/18 03:30 98.6 F 78 16 111/51 L 95 Weight Weight 176 lb 14.4 oz Result Diagrams: 10/25/18 05:22 10/25/18 05:22 Additional Labs: Accuchecks 10/26/18 10/25/18 05:13 19:49 POC Glucose 114 H 108 Radiology Reviewed by me: Yes EKG Reviewed by me: Yes Phys Exam - Physical Examination Constitutional: NAD HEENT: PERRLA, moist MMs, sclera anicteric Neck: no JVD, supple Respiratory: no wheezing, no rales, no rhonchi Cardiovascular: RRR, no significant murmur, no rub pacemaker site clean and healthy Gastrointestinal: soft, non-tender, no distention, positive bowel sounds Musculoskeletal: no edema, pulses present Neurological: non-focal, normal sensation Lymphatic: no nodes Psychiatric: normal affect, A&O x 3 Skin: no rash, normal turgor Dx/Plan (1) Chest pain Code(s): R07.9 - CHEST PAIN, UNSPECIFIED Status: Resolved (2) CAD (coronary artery disease) Code(s): I25.10 - ATHSCL HEART DISEASE OF [place] CORONARY ARTERY W/O ANG PCTRS Status: Chronic (3) DM2 (diabetes mellitus, type 2) Status: Chronic (4) Dementia Code(s): F03.90 - UNSPECIFIED DEMENTIA WITHOUT BEHAVIORAL DISTURBANCE Status: Chronic (5) HLD (hyperlipidemia) Code(s): E78.5 - HYPERLIPIDEMIA, UNSPECIFIED Status: Chronic (6) HTN (hypertension) Code(s): I10 - ESSENTIAL (PRIMARY) HYPERTENSION Status: Chronic (7) History of atrial flutter Code(s): Z86.79 - PERSONAL HISTORY OF OTHER DISEASES OF THE CIRCULATORY SYSTEM Status: Chronic (8) History of coronary artery bypass graft Status: Chronic (9) History of prior ablation treatment Code(s): Z98.890 - OTHER SPECIFIED POSTPROCEDURAL STATES Status: Chronic (10) S/P cardiac pacemaker procedure Status: Acute - Plan cont current plan of care, plan discussed w/ family * discussed with EP, and per them OK to discharge later today * will ask cardiology about recommendation regarding antiplatelet and eliquis therapy on discharge * medication reviewed as below * symptomatic treatment * spoke with daughter and updated plan. Review of Systems - Review of Systems ENT: negative: Ear Pain, Ear Discharge, Nose Pain, Nose Discharge, Nose Congestion, Mouth Pain, Mouth Swelling, Throat Pain, Throat Swelling, Other Respiratory: negative: Cough, Dry, Shortness of Breath, Hemoptysis, SOB with Excertion, Pleuritic Pain, Sputum, Wheezing Cardiovascular: negative: chest pain, palpitations, orthopnea, paroxysmal nocturnal dyspnea, edema, light headedness, other Gastrointestinal: negative: Nausea, Vomiting, Abdominal Pain, Diarrhea, Constipation, Melena, Hematochezia, Other Musculoskeletal: negative: Neck Pain, Shoulder Pain, Arm Pain, Back Pain, Hand Pain, Leg Pain, Foot Pain, Other - Medications/Allergies Allergies/Adverse Reactions: Allergies Allergy/AdvReac Type Severity Reaction Status Date / Time codeine Allergy Verified 10/22/18 17:45 Medications: Current Medications Acetaminophen (Tylenol) 650 mg PO Q4H PRN PRN Reason: Headache/Fever/Mild Pain (1-3) Last Admin: 10/24/18 19:57 Dose: 650 mg Amiodarone HCl (Cordarone) 200 mg PO DAILY [facility] Last Admin: 10/26/18 08:42 Dose: 200 mg Apixaban (Eliquis) 5 mg PO BID [facility] Last Admin: 10/24/18 08:48 Dose: 5 mg Aspirin (Aspirin Chewable) 81 mg PO DAILY [facility] Last Admin: 10/26/18 08:42 Dose: 81 mg Atorvastatin Calcium (Lipitor) 40 mg PO HS [facility] Last Admin: 10/25/18 20:04 Dose: 40 mg Cephalexin (Keflex) 500 mg PO Q8HR [facility] Stop: 11/01/18 23:59 Clonidine (Catapres) 0.1 mg PO BID PRN PRN Reason: Blood Pressure Last Admin: 10/25/18 08:02 Dose: 0.1 mg Clopidogrel Bisulfate (Plavix) 75 mg PO DAILY [facility] Last Admin: 10/26/18 08:42 Dose: 75 mg Dextrose/Water (Dextrose 50%) 25 gm SLOW IVP PRN PRN PRN Reason: Hypoglycemia Enalapril Maleate (Vasotec) 20 mg PO BID [facility] Last Admin: 10/26/18 08:41 Dose: 20 mg Glucagon (Glucagon) 1 mg IM PRN PRN PRN Reason: Hypoglycemia Hydralazine HCl (Apresoline) 25 mg PO TID [facility] Last Admin: 10/26/18 08:42 Dose: 25 mg Hydralazine HCl (Apresoline) 10 mg SLOW IVP Q4H PRN PRN Reason: SBP > 180 Last Admin: 10/24/18 12:11 Dose: 10 mg Dextrose/Water (D5w) 1,000 mls @ 0 mls/hr IV .Q0M PRN PRN Reason: Hypoglycemia Insulin Human Lispro (Humalog) 0 units SC .MILD SLIDING SCALE PRN PRN Reason: Mild Correctional Scale Last Admin: 10/24/18 12:10 Dose: 2 unit Isosorbide Mononitrate (Imdur Er) 30 mg PO DAILY [facility] Last Admin: 10/26/18 08:41 Dose: 30 mg Metformin HCl (Glucophage) 500 mg PO BID-[facility] Last Admin: 10/26/18 08:42 Dose: 500 mg Pantoprazole Sodium (Protonix) 40 mg PO DAILY [facility] Last Admin: 10/26/18 08:41 Dose: 40 mg Senna/Docusate Sodium (Senokot S) 2 tab PO BID PRN PRN Reason: Constipation Sodium Chloride (Flush - Normal Saline) 10 ml IVF Q12HR [facility] Last Admin: 10/26/18 08:43 Dose: 10 ml Sodium Chloride (Flush - Normal Saline) 10 ml IVF PRN PRN PRN Reason: Saline Flush Last Admin: 10/26/18 00:43 Dose: 10 ml
--- NOTE | 2018-10-26 12:51 | DIS ---
DATE OF ADMISSION: 10/22/2018 DATE OF DISCHARGE: 10/26/2018 PRIMARY CARE PHYSICIAN: [facility] Call admission. DISCHARGE DISPOSITION: Home. PRIMARY DISCHARGE DIAGNOSES: 1. Chest pain, ruled out acute coronary syndrome. 2. Status post cardiac pacemaker procedure. SECONDARY DISCHARGE DIAGNOSES: Coronary artery disease, dementia, diabetes type 2, history of atrial flutter, history of coronary artery bypass grafting, history of ablation treatment, hypertension, and dyslipidemia. PRIMARY PROCEDURE/OPERATION: Cardiac pacemaker procedure. RADIOLOGICAL INVESTIGATION: Chest x-ray normal. CT brain negative. Abdominal ultrasound unremarkable. SIGNIFICANT LABORATORY DATA: Hemoglobin 11.8. Creatinine 0.78. LFT normal. Cardiac enzyme negative. Urinalysis normal. Blood culture negative. DISCHARGE MEDICATIONS: 1. Amiodarone 200 mg p.o. daily. 2. Aspirin 81 mg daily. 3. Keflex 500 mg p.o. q.8 hourly. 4. Lipitor 40 mg p.o. at bedtime. 5. Enalapril 20 mg b.i.d. 6. Hydralazine 25 mg t.i.d. 7. Imdur 30 mg p.o. daily. 8. Metformin 500 mg b.i.d. 9. Protonix 40 mg p.o. daily. 10. Resume Eliquis when Cardiology clears. CONTRAINDICATION: None. CODE STATUS: Full code. INPATIENT CONSULTANTS: Dr. Stein was following while in the hospital. Dr. Alston was consulted while in hospital. TEST RESULTS PENDING ON DISCHARGE: None. ALLERGIES: CODEINE. DISCHARGE PLAN: Posthospital, the patient will follow up with Dr. Alston, Dr. Stein as instructed. HOSPITAL COURSE: A 78-year-old male with above-mentioned medical problem, who was admitted by Dr. Luz Mckeon. Please see her H and P for further details. On admission, the patient was having chest pain. His chest pain description was atypical. He was also having some bradycardia episodes as well as hypertensive urgency. This patient was evaluated by manager country and production controller and the patient was found with atrial tachyarrhythmia and intermittent bradycardia and that is why the patient underwent cardiac pacemaker procedure. The patient did very well while in hospital. His medication was adjusted as above. On the day of discharge, we discussed with the family member about the plan of care. He is given Keflex as a new medication after pacemaker procedure and the patient will continue to hold Eliquis therapy as instructed. He will continue other antiplatelet therapy as per Cardiology description. His blood pressure medication adjusted and new medication sent to his pharmacy. Overall, the patient is medically stable for discharge today. Job ID: [id number]
[2018-10-26] MEDS ORDERED: Cephalexin 250 MG CAP PO SCH (14:00)
[2018-10-26 15:43] VITALS: BP 166/84; TEMP 98.1
--- NOTE | 2018-10-26 16:06 | PDOC.CTH ---
Cardiology Progress Note - Subjective EP PROGRESS NOTE: 10/26/18 Patient seen and evaluated. No new cardiac concerns or complaints today. Slight tenderness at PPM implant site. Denies heart racing, palpitations, chest pain/pressure, dizziness, or passing out. No stroke like symptoms. - Objective Vital Signs Temp Pulse Resp BP Pulse Ox 10/26/18 15:38 98.1 F 81 18 166/84 H 95 10/26/18 11:41 98.2 F 70 16 157/70 H 95 10/26/18 07:19 98.1 F 76 18 169/73 H 95 Weight 176 lb 14.4 oz - Physical Examination General/Neuro: alert & oriented x3, NAD Neck: carotid US brisk, no JVD present Lungs: CTA, unlabored respirations Heart: PMI normal, RRR Abdomen: NT/ND, soft - Telemetry Telemetry Rhythm: SR - Labs Result Diagrams: 10/25/18 05:22 10/25/18 05:22 Troponin/CKMB Troponin I 0.018 ng/mL (< 0.028) 10/23/18 18:21 - Assessment/Plan 1. Atrial tachycardia -prior CTI and A tach ablation. A Fib hx as well prompting CV amiodarone therapy. 2. Tachy-puneet syndrome -s/p D-PPM implant. Continue cephalexin. Device check is stable this AM 3. Medication non compliance 4. Mild dementia 5. CHADS2-VASC: 6 - On Eliquis therapy. OK to resume eliquis 5 PM 6. CAD with prior CABG
--- NOTE | 2018-10-28 10:28 | EKG ---
Test Reason : STEMI Blood Pressure : / mmHG Vent. Rate : 062 BPM Atrial Rate : 062 BPM P-R Int : 182 ms QRS Dur : 102 ms QT Int : 478 ms P-R-T Axes : 000 038 -54 degrees QTc Int : 485 ms Normal sinus rhythm Possible Inferior infarct , age undetermined Abnormal ECG Confirmed by SAM CABRERA ([id number]), news videotape editor KRISTY POLO ([id number]) on 10/28/2018 10:28:17 AM Referred By: Confirmed By:SAM CABRERA
[2018-10-29] MEDS ORDERED: Apixaban 5 MG TAB PO SCH (09:00)
== END 2018-10-26 17:02 | disposition home or self-care (01) | DRG 244 ==
LOC: ERS 09:42 → ERHOLD 11:43 → 2NO 17:07
PROVIDERS: ADMIT Internal Medicine; ATTEND Internal Medicine
PROC: 0JH606Z Insertion of Pacemaker, Dual Chamber into Chest Subcutaneous Tissue and Fascia, Open Approach (ICD-10-PCS; principal; 2018-10-25)
PROC: 02HK3JZ Insertion of Pacemaker Lead into Right Ventricle, Percutaneous Approach (ICD-10-PCS; 2018-10-25)
PROC: 02H63JZ Insertion of Pacemaker Lead into Right Atrium, Percutaneous Approach (ICD-10-PCS; 2018-10-25)
DX: I49.5 Sick sinus syndrome (principal); E11.9 Type 2 diabetes mellitus without complications; F03.90 Unspecified dementia, unspecified severity, without behavioral disturbance, psychotic disturbance, mood disturbance, and anxiety; I48.91 Unspecified atrial fibrillation; I16.0 Hypertensive urgency; R07.89 Other chest pain; I25.10 Atherosclerotic heart disease of native coronary artery without angina pectoris; I10 Essential (primary) hypertension; I25.2 Old myocardial infarction; Z91.14 Patient's other noncompliance with medication regimen; Z87.891 Personal history of nicotine dependence; Z88.5 Allergy status to narcotic agent; Z79.01 Long term (current) use of anticoagulants; Z79.84 Long term (current) use of oral hypoglycemic drugs; Z79.02 Long term (current) use of antithrombotics/antiplatelets; Z79.82 Long term (current) use of aspirin; Z79.899 Other long term (current) drug therapy; Z95.1 Presence of aortocoronary bypass graft; Z95.5 Presence of coronary angioplasty implant and graft
CPT/HCPCS: 33208; 36005; 36415; 36416; 70450; 71045; 75820; 76705; 80048; 80053; 81001; 84484; 85025; 87040; 93005; 93010; 94760; 96365; 96366; C1785; C1898; J0360; J0690; J2704; J3010; J3490; Q9967

== ENCOUNTER 2018-12-25 18:50 | Inpatient (IN) | payer MEDICARE ==
[2018-12-25] MEDS ORDERED: Nitroglycerin 50 MG/250 ML BOT 0 ML ONE (18:59)
[2018-12-25 19:22] LABS: #Eosinphils 0.1 thou/uL (0.0-0.7); #Lymphocytes 0.8 thou/uL (1.20-3.40); #Monocytes 0.4 thou/uL (0.11-0.59); #Neutrophils 5.8 thou/uL (1.40-6.50); %Basophils 0.6 % (0.0-1.0); %Eosinophils 0.8 % (0.0-10.0); %Lymphocytes 10.8 % (21.0-51.0); %Monocytes 5.7 % (0.0-10.0); %Neutrophils 82.2 % (42.0-75.0); Hemoglobin 9.6 g/dL (14.0-18.0); Mean Corpuscular HGB CONC 33.5 g/dL (32.0-36.0); Mean Corpuscular Hemoglobin 28.8 pg (27.0-31.0); Mean Corpuscular Volume 86.2 fL (78.0-98.0); Mean Platelet Volume 7.6 fL (7.4-10.4); Platelet Count 221 thou/uL (130-400); RBC Distribution Width 14.5 % (11.5-14.5); Red Blood Cell (RBC) Count 3.33 mill/uL (4.70-6.10)
--- NOTE | 2018-12-25 19:22 | RAD ---
EXAM: Portable chest PROVIDED CLINICAL HISTORY: Chest pain COMPARISON: 10/22/2018 FINDINGS: Cardiac and mediastinal silhouette is unchanged in appearance. Median sternotomy changes are redemons trated. Interval placement of left subclavian cardiac pacing device with lead tips overlying the expected locations of RA and RV. No focal consolidation, pleural fluid or pneumothorax evident. IMPRESSION: No evidence for an acute cardiopulmonary process.
[2018-12-25 19:30] LABS: INR-International Normal Ratio 2.4; PTT 39.4 SEC (22.9-36.1); Prothrombin Time 25.7 SEC (12.0-14.7)
[2018-12-25 19:43] LABS: ALT (SGPT) 10 U/L (8-55); AST (SGOT) 12 U/L (5-34); Albumin 4.1 g/dL (3.4-4.8); Alkaline Phosphatase 75 U/L (40-150); Anion Gap 12 mmol/L (10-20); BUN (Urea Nitrogen) 14 mg/dL (8.4-25.7); Bilirubin, Total 0.9 mg/dL (0.2-1.2); CK (CPK) 49 U/L (30-200); Calc. Creatinine Clearance 0 mL/min (70-130); Calcium 9.3 mg/dL (7.8-10.44); Carbon Dioxide 24 mmol/L (23-31); Chloride 103 mmol/L (98-107); Estimated GFR-MDRD 77; Globulin 2.1 g/dL (2.4-3.5); Glucose 95 mg/dL (83-110); Lipase 11 U/L (8-78); Potassium 4.2 mmol/L (3.5-5.1); Protein, Total 6.2 g/dL (5.8-8.1); Sodium 135 mmol/L (136-145)
--- NOTE | 2018-12-25 20:39 | ULT ---
EXAM: Left lower extremity venous Doppler PROVIDED CLINICAL HISTORY: Edema FINDINGS: Grayscale and color Doppler sonography with spectral analysis was performed of the left common femora l, femoral, popliteal, posterior tibial, greater saphenous and profunda femoral veins. The evaluated venous structures demonstrate a normal sonographic appearance. IMPRESSION: No sonographic evidence for left lower extremity deep venous thrombosis.
[2018-12-25] MEDS ORDERED: Nitroglycerin 2% Ointment 1 INCH/1 GM Packet ONE (21:14)
[2018-12-25 23:28] LABS: Troponin I Less than 0.010 ng/mL (< 0.028)
[2018-12-26] MEDS ORDERED: Ondansetron ODT 4 MG TAB SL PRN (00:13)
[2018-12-26] MEDS ORDERED: Acetaminophen 325 MG TAB PO PRN (00:13)
[2018-12-26] MEDS ORDERED: Ondansetron PF 4 MG/2 ML Vial IVP PRN (00:13)
[2018-12-26 01:17] LABS: Troponin I 0.021 ng/mL (< 0.028)
[2018-12-26] MEDS ORDERED: Nitroglycerin 2% Ointment 1 INCH/1 GM Packet TOP SCH (06:00)
[2018-12-26] MEDS ORDERED: Aspirin Chewable 81 MG TAB PO SCH (09:00)
[2018-12-26] MEDS: Amiodarone 200 MG TAB PO SCH (10:24)
[2018-12-26] MEDS: hydrALAZINE 25 MG TAB PO SCH ×2 (10:25→20:48)
[2018-12-26 12:04] LABS: Hemoglobin 10.2 g/dL (14.0-18.0)
[2018-12-26 12:34] LABS: Iron 34 ug/dL (65-175); Iron Binding Capacity, Total 345 mcg/dL (261-462)
[2018-12-26 16:25] LABS: Hemoglobin 11.3 g/dL (14.0-18.0)
[2018-12-26 16:30] LABS: INR-International Normal Ratio 1.4; Prothrombin Time 17.4 SEC (12.0-14.7)
[2018-12-26] MEDS: cloNIDine 0.1 MG TAB PO PRN (16:32)
--- NOTE | 2018-12-26 18:56 | HP ---
PRIMARY CARE PHYSICIAN: Dr. Nahum Martin CHIEF COMPLAINT: Elevated pulse. HISTORY OF PRESENT ILLNESS: Mr. Montero is a 78-year-old male, who presented to the emergency room via [facility] for elevated pulse and elevated blood pressure. The patient reports to me that he drank a pot of caffeinated coffee yesterday morning. Reports that he normally drinks decaf. Reports that he felt a little flustered, noted that his pulse was elevated and his blood pressure was a little up. He reports he panicked and called his daughter, who wanted him to call 911. He tells me that he denied any chest pain, had some few palpitations, but he was mostly worried about his pulse. He does have a history of coronary artery disease, was admitted here in October of 2018, underwent a cardiac cath in July of 2018, which showed three-vessel coronary artery disease, 2 or 3 bypass grafts were patent, and mildly impaired ventricular function, and he had a bare metal stent placed to the proximal first obtuse marginal bypass graft. Last echocardiogram was done in April of 2018, which showed an EF of approximately 50% to 55%, left atrium moderately dilated, mitral annular calcification, moderate mitral regurgitation, moderate aortic stenosis, [id number] tricuspid regurgitation. Emergency room EKG showed unusual P axis, possible ectopic atrial rhythm, left ventricular hypertrophy with repolarization abnormality. He was given some Nitro-Bid paste. Troponins x3 were undetectable. The patient's pacemaker was also interrogated that showed no adverse events on 12/25/2018. The patient does deny having any chest pain. Denied any yesterday, denied any today. On exam today, he does report that he has had some black tarry stool for the last 2 to 3 weeks. He is on Eliquis. Denies any diarrhea. Does report some mild intermittent abdominal pain and is not sure when his last colonoscopy was done. It was noted during admission that his hemoglobin when he was discharged in October of 2018 was 11.8, and then last night at 1910 hours, it was 9.6. Rectal exam was performed by the [employer] on admission and it was positive for occult blood. The patient from the ER was admitted to the observation unit for further management. PAST MEDICAL HISTORY: Diabetes, hypertension, CAD, and atrial fibrillation on coagulation Eliquis. PAST SURGICAL HISTORY: Bypass, left knee, and stent placement. MEDICATIONS: 1. Amiodarone 200 mg p.o. daily. 2. Aspirin 81 mg p.o. daily. 3. Metoprolol 50 mg p.o. b.i.d. 4. Eliquis 5 mg p.o. b.i.d. 5. Atorvastatin 40 mg p.o. at bedtime. 6. Vasotec 20 mg p.o. b.i.d. 7. Apresoline 25 mg p.o. b.i.d. 8. Isosorbide 30 mg p.o. daily. 9. Metformin 500 mg p.o. b.i.d. ALLERGIES: TO CODEINE. REVIEW OF SYSTEMS: The patient reports a few palpitations. Reports increased pulse. Reports intermittent abdominal pain. He denies any constipation or diarrhea. Does report dark tarry stools. He reported some lightheadedness yesterday, but that has resolved. He did also have a headache yesterday, but that is also resolved. He is denying any history of chest pain in the last 2 days. PSYCHIATRIC HISTORY: None. SOCIAL HISTORY: Denies any alcohol use. He is a former tobacco smoker, quit more than 10 years ago. PHYSICAL EXAMINATION: VITAL SIGNS: Blood pressure 159/71, pulse is 74, respirations are 18, and temperature is 98.3. CONSTITUTIONAL: The patient appears in no distress. During exam this morning, he was sitting on the sofa talking to a friend who was in the room. HEENT: Head is atraumatic and normocephalic. Eyes, eyelids are normal to inspection. Pupils are equally round and reactive to light. ENT, tonsil exam is normal. Mouth exam is normal. Mucous membranes are moist. NECK: Normal range of motion. No tenderness. RESPIRATORY: Chest expansion is equal. Breath sounds are clear. CARDIOVASCULAR: Heart sounds with systolic murmur grade 3/6. Regular rate and rhythm. ABDOMEN: Nontender. Bowel sounds are heard. BACK: Normal inspection. Normal range of motion. No CVA tenderness. EXTREMITIES: Upper extremity, normal range of motion. Normal inspection. Radial pulses equal. Lower extremity, normal range of motion. Motor strength is equal. Sensation is intact. Pedal pulses are equal. Edema present to bilateral lower extremities, right is greater than left. NEUROLOGIC: The patient is oriented to person, place, and time. Speech is normal. SKIN: Warm, dry, and normal color. PSYCH: The patient has a normal affect. ASSESSMENT AND PLAN: 1. Palpitations, increased pulse. The patient's pacemaker was interrogated and there was no events in the last 2 days. The patient does have a pacemaker as stated. Troponins x3 are undetectable. The patient denies any chest pain. Denied chest pain yesterday. 2. Gastrointestinal bleed. We make the patient n.p.o., checking iron, ferritin. Serial H and H's. Protonix q.12 and I have asked Gastroenterology to consult. We are holding the aspirin and the Eliquis. 3. Hypertension. We will continue home medications. We will trend. 4. Coronary artery disease. See #1, appears stable. We will continue home medications. 5. Diabetes. We have had an Accu-Cheks before meals and at bedtime. We will add sliding scale insulin as needed. 6. Hospital course is dependent on clinical findings. Job ID: [id number]
[2018-12-26] MEDS ORDERED: GoLYTELY 4,000 ml Bottle PO SCH (19:00)
--- NOTE | 2018-12-26 19:30 | CON ---
DATE OF CONSULTATION: 12/26/2018 CHIEF COMPLAINT: Weakness and dizziness. HISTORY OF PRESENT ILLNESS: Mr. Montero is a 78-year-old man who suddenly became weak and dizzy yesterday. He felt lightheaded like he was going to pass out. He called 911 of the emergency room and was admitted for further evaluation. He has had no nausea, vomiting, or abdominal pain. He has had no chest pain. He states that even though there was documentation indicating chest pain earlier, he states that he truly had no chest pain. He has had no diarrhea or constipation. He had dark bowel movement with rings of red blood around it early this morning and then again this afternoon in the hospital once. He has had no prior GI bleed. He has never had a colonoscopy. The weight has been stable. He was admitted back in October at which time he had a pacemaker placed. His last coronary stent he believes was over a year ago. PAST MEDICAL HISTORY: Hypertension, hyperlipidemia, atrial fibrillation, history of cardioversion and ablation and recent pacemaker placement. There is a reported history of dementia; however, he does live at home alone. He has three daughters, one of whom lives locally and helps him out. He has diabetes mellitus. PAST SURGICAL HISTORY: Coronary artery bypass graft, cardiac catheterization, knee surgery. He has had no abdominal surgeries. FAMILY HISTORY: Positive for colon cancer in his mother. SOCIAL HISTORY: He quit smoking 30 years ago. He quit alcohol 20 years ago. No drugs. ALLERGIES: CODEINE. MEDICATIONS: Prior to admission include: 1. Metformin. 2. Hydralazine. 3. Metoprolol. 4. Isosorbide mononitrate. 5. Enalapril. 6. Atorvastatin. 7. Aspirin 81 mg daily. 8. Eliquis 5 mg twice daily. His last dose of Eliquis was yesterday morning. 9. He takes amiodarone. No other NSAIDs. REVIEW OF SYSTEMS: Negative x10 systems reviewed except as stated in history of present illness. PHYSICAL EXAMINATION: VITAL SIGNS: Temperature 98.6, pulse 70, blood pressure 186/88, oxygen saturation 92%. GENERAL: He is in no acute distress. He is alert and oriented x3. HEENT: His eyes have no scleral icterus. Oropharynx is clear without lesions. No cervical or supraclavicular lymphadenopathy. LUNGS: Clear to auscultation bilaterally. HEART: Regular rate and rhythm without murmur. ABDOMEN: Soft, nontender, and nondistended. Bowel sounds are present. EXTREMITIES: No lower extremity edema. RECTAL: Exam reveals brown stool with red staining with that. LABORATORY DATA: His baseline hemoglobin is around 11. His hemoglobin today is 10. INR last night at 19:10 p.m. was 2.4. Iron studies; iron was 34, TIBC 345, ferritin of 26. IMPRESSION: 1. Iron deficiency anemia with a ferritin of 26 and low iron and normal TIBC. 2. Anemia of acute blood loss. He has red blood mixed with brown stool in my rectal exam now. He presented with lightheadedness and dizziness and presyncope. He has had no prior colonoscopy. He does report a history of peptic ulcer 20 or 30 years ago. 3. Arrhythmia with chronic anticoagulation. His last dose of Eliquis was yesterday morning; however, last night his INR was 2.4. It is unclear why his INR was so elevated and could indicate some toxicity with Eliquis. I will recheck his INR this afternoon. If it remains significantly elevated, then I would hold Eliquis longer and plan for upper and lower endoscopy for . If his INR is back down towards normal now, then tomorrow morning will be 48 hours from his last Eliquis dose and at that point, it should be okay to follow through with endoscopy for tomorrow. RECOMMENDATIONS: 1. EGD and colonoscopy. We will schedule this for either tomorrow morning or depending on labs now. I will check a hemoglobin and PT/INR now. 2. Eliquis is on hold. Last dose was morning of 12/25/2018. Job ID: [id number]
[2018-12-26] MEDS: Atorvastatin Calcium 40 MG TAB PO SCH (20:47)
[2018-12-26] MEDS: Pantoprazole 40 MG VIAL IVP SCH (20:48)
[2018-12-26] MEDS ORDERED: Prevnar 13-Val Conj/PF 0.5 ML SYRINGE IM ONE (21:00)
[2018-12-27] MEDS: cloNIDine 0.1 MG TAB PO PRN ×2 (04:27→17:23)
[2018-12-27] MEDS: Amiodarone 200 MG TAB PO SCH (09:05)
[2018-12-27] MEDS: hydrALAZINE 25 MG TAB PO SCH ×2 (09:06→20:18)
[2018-12-27] MEDS: Pantoprazole 40 MG VIAL IVP SCH ×2 (09:39→20:18)
[2018-12-27 10:34] LABS: #Basophils 0.1 thou/uL (0.0-0.2); #Eosinphils 0.1 thou/uL (0.0-0.7); #Lymphocytes 0.7 thou/uL (1.20-3.40); #Monocytes 0.5 thou/uL (0.11-0.59); #Neutrophils 4.7 thou/uL (1.40-6.50); %Eosinophils 1.7 % (0.0-10.0); %Lymphocytes 10.9 % (21.0-51.0); %Monocytes 7.8 % (0.0-10.0); %Neutrophils 78.6 % (42.0-75.0); Hemoglobin 9.9 g/dL (14.0-18.0); Mean Corpuscular HGB CONC 36.3 g/dL (32.0-36.0); Mean Corpuscular Hemoglobin 31.4 pg (27.0-31.0); Mean Corpuscular Volume 86.5 fL (78.0-98.0); Mean Platelet Volume 7.6 fL (7.4-10.4); Platelet Count 198 thou/uL (130-400); RBC Distribution Width 14.5 % (11.5-14.5); Red Blood Cell (RBC) Count 3.14 mill/uL (4.70-6.10); White Blood Cell (WBC) Count 5.9 thou/uL (4.8-10.8)
[2018-12-27 10:55] LABS: Anion Gap 14 mmol/L (10-20); BUN (Urea Nitrogen) 12 mg/dL (8.4-25.7); Calc. Creatinine Clearance 78 mL/min (70-130); Calcium 9.3 mg/dL (7.8-10.44); Carbon Dioxide 24 mmol/L (23-31); Chloride 103 mmol/L (98-107); Estimated GFR-MDRD 87; Glucose 101 mg/dL (83-110); Potassium 3.9 mmol/L (3.5-5.1); Sodium 137 mmol/L (136-145)
[2018-12-27] MEDS ORDERED: PROPOFOL 200 MG/20 ML VIAL ONE (11:40)
--- NOTE | 2018-12-27 13:59 | PDOC.PN ---
- Subjective Encounter Start Date: 12/27/18 Encounter Start Time: 10:30 Subjective: Patient examined, resting in bed awaiting to be taken down for -: colonscopy. Denies complaints other than hunger. -: Discussed possibility of DC this afternoon or in AM if GI agrees - Objective Vital Signs & Weight: Vital Signs (12 hours) Temp Pulse Pulse Pulse Resp BP BP 12/27/18 11:57 97.5 F L 65 18 12/27/18 10:05 60 66 160/76 H 171/79 H 12/27/18 07:38 97.2 F L 61 15 12/27/18 04:18 98.2 F 65 18 BP Pulse Ox 12/27/18 11:57 158/70 H 97 12/27/18 10:05 12/27/18 07:38 188/83 H 97 12/27/18 04:18 181/86 H 99 Weight Weight 78.063 kg I&O: 12/26/18 12/27/18 12/28/18 06:59 06:59 06:59 Intake Total 240 4300 Output Total 1025 Balance -785 4300 Result Diagrams: 12/27/18 10:09 12/27/18 10:09 Additional Labs: Accuchecks 12/27/18 12/27/18 12/26/18 10:41 06:19 20:37 POC Glucose 108 114 H 122 H 12/26/18 16:44 POC Glucose 92 Phys Exam - Physical Examination HEENT: PERRLA, moist MMs Neck: no nodes, no JVD Respiratory: clear to auscultation bilateral Cardiovascular: RRR, no significant murmur Gastrointestinal: soft, non-tender, positive bowel sounds Musculoskeletal: no edema, pulses present Neurological: non-focal, normal sensation, moves all 4 limbs Lymphatic: no nodes Psychiatric: normal affect, A&O x 3 Skin: normal turgor Dx/Plan (1) GI bleed Code(s): K92.2 - GASTROINTESTINAL HEMORRHAGE, UNSPECIFIED Status: Acute (2) CAD (coronary artery disease) Code(s): I25.10 - ATHSCL HEART DISEASE OF [place] CORONARY ARTERY W/O ANG PCTRS Status: Chronic (3) DM2 (diabetes mellitus, type 2) Status: Chronic (4) Dementia Code(s): F03.90 - UNSPECIFIED DEMENTIA WITHOUT BEHAVIORAL DISTURBANCE Status: Chronic (5) HLD (hyperlipidemia) Code(s): E78.5 - HYPERLIPIDEMIA, UNSPECIFIED Status: Chronic (6) HTN (hypertension) Code(s): I10 - ESSENTIAL (PRIMARY) HYPERTENSION Status: Chronic - Plan cont current plan of care, PT/OT Awaiting colonscopy, -: PT has dc'd him to walking program, will not qualify for rehab per CM -: Will continue to monitor, check Hemaglobin * .
[2018-12-27] MEDS ORDERED: GoLYTELY 4,000 ml Bottle PO SCH (18:00)
[2018-12-27] MEDS: Atorvastatin Calcium 40 MG TAB PO SCH (20:18)
--- NOTE | 2018-12-27 21:50 | OP ---
DATE OF PROCEDURE: 12/27/2018 PREOPERATIVE DIAGNOSIS: Iron deficient anemia, symptomatic, history of gastrointestinal bleed. POSTOPERATIVE DIAGNOSES: 1. Hiatal hernia. 2. Normal esophageal mucosa and no esophagitis seen. 3. Normal fundus and cardia. 4. Three small shallow ulcers over the gastric antrum and gastric antral gastritis. 5. Normal duodenum. PROCEDURE PERFORMED: Esophagogastroduodenoscopy with biopsy. DESCRIPTION OF PROCEDURE: The patient was placed on his left lateral position and was given sedation by Anesthesia Department. A [employer]ax video gastroscope under direct vision was passed down the oropharynx, past the GE junction into the stomach and subsequently into the descending duodenum. The esophageal mucosa appeared normal. The GE junction, no pathology. He had a small hiatal hernia. Retroflexion failed to show any pathology in fundus or cardia. The gastric body, no pathology. The gastric antrum showed 3 shallow small ulcerations and also gastritis. Biopsy obtained from the gastric antrum and gastric body. The duodenal bulb, descending duodenum, no pathology. The stomach decompressed and the scope was removed. Job ID: [id number]
[2018-12-28] MEDS: hydrALAZINE 25 MG TAB PO SCH ×2 (09:07→21:21)
[2018-12-28] MEDS: Amiodarone 200 MG TAB PO SCH (09:07)
[2018-12-28] MEDS: Pantoprazole 40 MG VIAL IVP SCH ×2 (09:07→21:22)
--- NOTE | 2018-12-28 10:08 | OP ---
DATE OF PROCEDURE: 12/27/2018 PROCEDURE PERFORMED: Attempted colonoscopy-incomplete colonoscopy due to retained stool. PREOPERATIVE DIAGNOSES: Iron deficiency anemia, history of mild hematochezia. POSTOPERATIVE DIAGNOSES: 1. Sigmoid diverticular disease, some diverticula in the proximal colon. 2. Exam aborted because of retained solid stool which could not be cleaned out completely. DESCRIPTION OF PROCEDURE: The patient was placed on his left lateral position and was given sedation by Anesthesia Department. A rectal exam was done before the scope was advanced into the rectum. No lesions were felt on rectal exam. A Pentax video colonoscope was introduced into the rectum and advanced I believe up to the transverse colon. The patient had solid fecal material colon. Water was irrigated and washed out. However, the exam was really not a good exam. He has some wide-mouth diverticula in sigmoid colon area and also scattered diverticula . The procedure time spent was almost 20 to 30 minutes. I could not completely clean out the colon. Because of the above reason, the procedure was terminated. I have discussed the above with the patient's family and explained that he needs to be re-prepped again. He probably needs another half gallon of GoLYTELY to be completely cleaned out. I will start him on clear liquid diet today and start prep this evening. Hopefully, a repeat colonoscopy can be done after adequate bowel prep tomorrow. Job ID: [id number]
[2018-12-28] MEDS: cloNIDine 0.1 MG TAB PO PRN (16:16)
--- NOTE | 2018-12-28 17:34 | PDOC.PN ---
- Subjective Encounter Start Date: 12/28/18 Encounter Start Time: 14:30 Doing ok, other than frustrated waiting on the colonoscopy. - Objective Vital Signs & Weight: Vital Signs (12 hours) Temp Pulse Resp BP BP BP Pulse Ox 12/28/18 16:16 188/88 H 12/28/18 16:15 97.9 F 89 18 196/98 H 94 L 12/28/18 12:10 97.8 F 89 18 145/85 H 96 12/28/18 09:07 60 12/28/18 09:06 188/88 H 12/28/18 07:41 98.1 F 60 18 190/83 H 97 12/28/18 07:40 94 L Weight Weight 172 lb 1.6 oz I&O: 12/27/18 12/28/18 12/29/18 06:59 06:59 06:59 Intake Total 4300 Balance 4300 Result Diagrams: 12/27/18 10:09 12/27/18 10:09 Phys Exam - Physical Examination Constitutional: NAD Respiratory: no wheezing, no rales, no rhonchi, clear to auscultation bilateral Cardiovascular: RRR, no significant murmur Gastrointestinal: soft, non-tender, no distention, positive bowel sounds Musculoskeletal: no edema Neurological: non-focal Psychiatric: normal affect Dx/Plan (1) GI bleed Code(s): K92.2 - GASTROINTESTINAL HEMORRHAGE, UNSPECIFIED Status: Acute (2) CAD (coronary artery disease) Code(s): I25.10 - ATHSCL HEART DISEASE OF [place] CORONARY ARTERY W/O ANG PCTRS Status: Chronic (3) DM2 (diabetes mellitus, type 2) Status: Chronic (4) Dementia Code(s): F03.90 - UNSPECIFIED DEMENTIA WITHOUT BEHAVIORAL DISTURBANCE Status: Chronic (5) HLD (hyperlipidemia) Code(s): E78.5 - HYPERLIPIDEMIA, UNSPECIFIED Status: Chronic (6) HTN (hypertension) Code(s): I10 - ESSENTIAL (PRIMARY) HYPERTENSION Status: Chronic (7) History of atrial flutter Code(s): Z86.79 - PERSONAL HISTORY OF OTHER DISEASES OF THE CIRCULATORY SYSTEM Status: Chronic (8) Gastric ulcer Code(s): K25.9 - GASTRIC ULCER, UNSP ACUTE OR CHRONIC, W/O HEMOR OR PERF Status: Acute - Plan * Stable. * Awaiting colonoscopy. * Discussed with GI. * Otherwise stable. * Continuing to hold Eliquis. * Continue IV PPI.
[2018-12-28] MEDS: Atorvastatin Calcium 40 MG TAB PO SCH (21:21)
--- NOTE | 2018-12-29 03:28 | OP ---
DATE OF PROCEDURE: 12/28/2018 PROCEDURE PERFORMED: Colonoscopy with snare polypectomy. PREOPERATIVE DIAGNOSIS: Gastrointestinal bleed, on chronic anticoagulation. DESCRIPTION OF PROCEDURE: Informed consent was obtained from the patient. The patient was sedated with total intravenous anesthesia. The preparation quality was fair after extensive irrigation. The colonoscope was advanced to the cecum, where the ileocecal valve and appendiceal orifice were clearly identified. There was severe diverticulosis in the sigmoid and descending colon. A 1 cm polyp was removed from the transverse colon by saline injection submucosally followed by snare cautery polypectomy. A 1.2 cm polyp was removed from the rectum at 10 cm. This polyp was on a short stalk and removed by snare cautery polypectomy completely. The retroflexed views in the rectum were normal. The patient has melanosis coli diffusely through the colon. IMPRESSION: 1. Severe diverticulosis of the sigmoid and descending colon. 2. A 1 cm transverse polyp was removed by raising the polyp with saline and snare cautery polypectomy. 3. A 1.2 cm rectal polyp at 10 cm on a short stalk removed with hot snare. 4. Melanosis coli. 5. Fair prep. RECOMMENDATIONS: 1. Await histopathology. 2. Repeat colonoscopy in 3 years. 3. Restart anticoagulation in 3 days. Job ID: [id number]
[2018-12-29 04:41] VITALS: BMI 24.3
[2018-12-29 07:46] VITALS: TEMP 97.8
[2018-12-29] MEDS: Amiodarone 200 MG TAB PO SCH (08:19)
[2018-12-29] MEDS: hydrALAZINE 25 MG TAB PO SCH (08:19)
[2018-12-29] MEDS: Pantoprazole 40 MG VIAL IVP SCH (08:20)
[2018-12-29 08:27] VITALS: BP 174/80
--- NOTE | 2018-12-30 00:52 | DIS ---
DATE OF ADMISSION: 12/26/2018 DATE OF DISCHARGE: 12/29/2018 DISCHARGE DIAGNOSES: 1. Chest pain with palpitations. 2. History of coronary artery disease. 3. Diabetes mellitus. 4. Dementia. 5. Hyperlipidemia. 6. Hypertension. 7. History of atrial flutter. 8. Gastric ulcer. 9. Severe diverticulosis. 10. Polyp of the transverse colon. 11. Rectal polyp at 10 cm. 12. Melanosis coli. HISTORY OF PRESENT ILLNESS: This patient is a 78-year-old male, who presented to the hospital with chest pains. The patient has some dementia and it appears as though his story might have been somewhat different talking to the emergency physicians versus the admitting hospitalist nurse practitioner. He indicated to her that he drank a pot of coffee which was fully caffeinated, which was unusual for him. This tended to cause him some anxiety and palpitations and elevation in his blood pressure and pulse. He called his daughter, who had him call 911. The patient had had a previous heart catheterization in July of 2018, indicating patent bypass grafts and a bare-metal stent placed in the proximal first OM bypass graft. He had a normal ejection fraction and moderate aortic stenosis and [id number] TR. His troponins were negative. His pacemaker was interrogated and showed no evidence of any aberrant activity. The patient also was found to have black tarry stools for 2 to 3 weeks and had heme-positive stool on exam. His initial hemoglobin was 9.6. HOSPITAL COURSE: This patient was admitted to the hospital, had lower extremity Dopplers which were negative. He was noted to have no ectopy on his monitor and given the history, it was felt that he did not need further aggressive workup. For the potential GI bleed with black tarry stools and heme-positive stool, he was seen in consultation by GI. Endoscopy was recommended. He underwent a bowel prep and had upper endoscopy, which revealed hiatal hernia, three small shallow ulcers over the gastric antrum, and gastritis. He underwent a colonoscopy which unfortunately was not adequately prepped. Therefore, the patient had re- prepped and underwent a colonoscopy again on 12/28/2018, at which time, he had 1 cm transverse colon polyp removed and 1.2 cm rectal polyp at 10 cm removed. He also had severe diverticulosis in the sigmoid and descending colon and melanosis coli. Subsequent to that, the patient felt well, was eating and eager for discharge. PHYSICAL EXAMINATION: VITAL SIGNS: On the day of discharge, temperature was 97.8, pulse 89, BP 174/80 , O2 saturation 96% on room air, BP was 178/78. GENERAL: He was awake, alert, oriented, and pleasant. HEART: Irregular without murmurs. LUNGS: Clear bilaterally. ABDOMEN: Benign. EXTREMITIES: Warm and dry. DISPOSITION: The patient is discharged to home. DIET: He is to have a regular diet. MEDICATIONS: He will be on Protonix 40 mg daily. He will continue his other home medications includin. Aspirin. 2. Metformin. 3. Atorvastatin. 4. Hydralazine. 5. Amiodarone. 6. Enalapril. 7. Isosorbide. 8. Metoprolol. 9. Apixaban, although he is not to resume the apixaban for 3 days. FOLLOWUP: He is to follow up with Nahum Romero in 7 days. He will have [facility] program and he will follow up with Dr. Alcaraz in 2 to 3 weeks at the [facility]. He can return to the hospital should he have any problems prior to that time. Time spent in discharge activities, including face to face time with the patient , was 33 min. Job ID: [id number] [facility]
--- NOTE | 2018-12-30 13:17 | EKG ---
Test Reason : CP Blood Pressure : / mmHG Vent. Rate : 082 BPM Atrial Rate : 082 BPM P-R Int : 192 ms QRS Dur : 112 ms QT Int : 380 ms P-R-T Axes : -75 040 216 degrees QTc Int : 443 ms Unusual P axis, possible ectopic atrial rhythm Left ventricular hypertrophy with repolarization abnormality Abnormal ECG Confirmed by JODEE SHIN, GLENDA ([id number]), publication editor KRISTY POLO ([id number]) on 12/30/2018 1:16:33 PM Referred By: JODEE Confirmed By:GLENDA ELLSWORTH MD
--- NOTE | 2018-12-30 13:23 | EKG ---
Test Reason : CHEST PAIN Blood Pressure : / mmHG Vent. Rate : 077 BPM Atrial Rate : 077 BPM P-R Int : 178 ms QRS Dur : 112 ms QT Int : 416 ms P-R-T Axes : -70 055 241 degrees QTc Int : 470 ms Unusual P axis, possible ectopic atrial rhythm Left ventricular hypertrophy with repolarization abnormality Abnormal ECG #2 Confirmed by JODEE SHIN, GLENDA ([id number]), telegraph editor KRISTY POLO ([id number]) on 12/30/2018 1:23:30 PM Referred By: Confirmed By:GLENDA ELLSWORTH MD
== END 2018-12-29 11:04 | disposition home or self-care (01) | DRG 378 ==
LOC: ERS 18:50 → 2SW 23:40 → OBSVTOIN 12-26 13:48 → 2NO 12-27 19:08
PROVIDERS: ADMIT Internal Medicine; ATTEND Internal Medicine
PROC: 0DB68ZX Excision of Stomach, Via Natural or Artificial Opening Endoscopic, Diagnostic (ICD-10-PCS; principal; 2018-12-27)
PROC: 0DB78ZX Excision of Stomach, Pylorus, Via Natural or Artificial Opening Endoscopic, Diagnostic (ICD-10-PCS; 2018-12-27)
PROC: 0DJD8ZZ Inspection of Lower Intestinal Tract, Via Natural or Artificial Opening Endoscopic (ICD-10-PCS; 2018-12-27)
PROC: 0DBP8ZZ Excision of Rectum, Via Natural or Artificial Opening Endoscopic (ICD-10-PCS; 2018-12-28)
PROC: 0DBL8ZZ Excision of Transverse Colon, Via Natural or Artificial Opening Endoscopic (ICD-10-PCS; 2018-12-28)
DX: K25.4 Chronic or unspecified gastric ulcer with hemorrhage (principal); D62 Acute posthemorrhagic anemia; R07.9 Chest pain, unspecified; I25.10 Atherosclerotic heart disease of native coronary artery without angina pectoris; E11.9 Type 2 diabetes mellitus without complications; E78.5 Hyperlipidemia, unspecified; I10 Essential (primary) hypertension; K57.90 Diverticulosis of intestine, part unspecified, without perforation or abscess without bleeding; K44.9 Diaphragmatic hernia without obstruction or gangrene; I48.91 Unspecified atrial fibrillation; F03.90 Unspecified dementia, unspecified severity, without behavioral disturbance, psychotic disturbance, mood disturbance, and anxiety; K63.5 Polyp of colon; K62.1 Rectal polyp; L81.4 Other melanin hyperpigmentation; Z95.1 Presence of aortocoronary bypass graft; I25.2 Old myocardial infarction; Z95.0 Presence of cardiac pacemaker; Z87.891 Personal history of nicotine dependence; Z95.5 Presence of coronary angioplasty implant and graft; Z79.01 Long term (current) use of anticoagulants
CPT/HCPCS: 36415; 36416; 71045; 80048; 80053; 82274; 82550; 82728; 83540; 83550; 83690; 83880; 84484; 85025; 85610; 85730; 88305; 88312; 88342; 90471; 90670; 93005; 94760; C9113; G0009; J2704

== ENCOUNTER 2019-05-11 22:59 | Emergency (ER) | payer MEDICARE ==
[2019-05-11] MEDS ORDERED: cloNIDine 0.1 MG TAB ONE (23:20)
[2019-05-11 23:42] LABS: Bilirubin Negative (Negative); Blood, Urine Negative (Negative); Clarity Clear (Clear); Glucose, Urine (Dipstick) Normal (Negative); Leukocyte Negative Leu/uL (Negative); Nitrite Negative (Negative); Protein, Urine (Dipstick) Negative (Neg-Trace); Urobilinogen Normal mg/dL (Less than 2)
[2019-05-11 23:56] LABS: ALT (SGPT) 19 U/L (8-55); AST (SGOT) 15 U/L (5-34); Albumin 4.6 g/dL (3.4-4.8); Alkaline Phosphatase 83 U/L (40-110); Anion Gap 13 mmol/L (10-20); BUN (Urea Nitrogen) 23 mg/dL (8.4-25.7); Bilirubin, Total 0.4 mg/dL (0.2-1.2); Calc. Creatinine Clearance 0 mL/min (70-130); Calcium 9.9 mg/dL (7.8-10.44); Carbon Dioxide 26 mmol/L (23-31); Chloride 103 mmol/L (98-107); Estimated GFR-MDRD 47; Glucose 97 mg/dL (83-110); Magnesium 2.1 mg/dL (1.6-2.6); Potassium 4.2 mmol/L (3.5-5.1); Protein, Total 7.6 g/dL (5.8-8.1); Sodium 138 mmol/L (136-145)
[2019-05-12 00:03] LABS: #Basophils 0.1 thou/uL (0.0-0.2); #Eosinphils 0.3 thou/uL (0.0-0.7); #Lymphocytes 1.6 thou/uL (1.20-3.40); #Monocytes 0.7 thou/uL (0.11-0.59); #Neutrophils 4.6 thou/uL (1.40-6.50); %Basophils 1.2 % (0.0-1.0); %Eosinophils 3.7 % (0.0-10.0); %Lymphocytes 22.1 % (21.0-51.0); %Monocytes 9.3 % (0.0-10.0); %Neutrophils 63.7 % (42.0-75.0); Hemoglobin 10.6 g/dL (14.0-18.0); Mean Corpuscular HGB CONC 36.5 g/dL (32.0-36.0); Mean Corpuscular Hemoglobin 30.9 pg (27.0-31.0); Mean Corpuscular Volume 84.8 fL (78.0-98.0); Mean Platelet Volume 7.2 fL (7.4-10.4); Platelet Count 265 thou/uL (130-400); RBC Distribution Width 16.2 % (11.5-14.5); Red Blood Cell (RBC) Count 3.43 mill/uL (4.70-6.10); White Blood Cell (WBC) Count 7.2 thou/uL (4.8-10.8)
== END 2019-05-12 00:19 | disposition home or self-care (01) ==
LOC: ERS 22:59
DX: I10 Essential (primary) hypertension (principal); R53.1 Weakness; I25.2 Old myocardial infarction; E78.00 Pure hypercholesterolemia, unspecified; E11.9 Type 2 diabetes mellitus without complications; F03.90 Unspecified dementia, unspecified severity, without behavioral disturbance, psychotic disturbance, mood disturbance, and anxiety; I25.10 Atherosclerotic heart disease of native coronary artery without angina pectoris; Z87.891 Personal history of nicotine dependence; Z79.01 Long term (current) use of anticoagulants; Z79.82 Long term (current) use of aspirin; Z95.5 Presence of coronary angioplasty implant and graft; Z79.84 Long term (current) use of oral hypoglycemic drugs; Z79.899 Other long term (current) drug therapy
CPT/HCPCS: 36415; 80053; 81003; 83735; 83880; 84484; 85025; 87804; 93005

== ENCOUNTER 2019-05-30 18:35 | Emergency (ER) | payer MEDICARE | END 2019-05-30 19:01 | disposition left against medical advice (07) | LOC: ERS 18:35 | DX: Z53.21 Procedure and treatment not carried out due to patient leaving prior to being seen by health care provider (principal) | CPT/HCPCS: 36416 ==

== ENCOUNTER 2019-07-12 11:55 | Outpatient (CLI) | payer MEDICARE ==
--- NOTE | 2019-07-12 12:09 | RAD ---
EXAM: Chest Two Views 07/12/2019 12:06 PM HISTORY: Paroxysmal atrial fibrillation COMPARISON: Single view chest radiograph dated December 25, 2018 FINDINGS: Heart: Normal in size and contour. Pulmonary vessels: Normal. Costophrenic angles: Clear. Lungs: No acute airspace consolidation. Pneumothorax: None. Osseous structures:Intact. Additional findings: Stable dual-lead pacemaker and midline sternotomy changes. IMPRESSION: No significant acute intrathoracic disease.
== END 2019-07-12 11:56 | disposition home or self-care (01) ==
LOC: BICRAD 11:55
PROVIDERS: ATTEND Nurse Practitioner Family
DX: I48.0 Paroxysmal atrial fibrillation (principal)
CPT/HCPCS: 71046

== ENCOUNTER 2019-08-20 06:08 | Outpatient (CLI) | payer MEDICARE ==
--- NOTE | 2019-08-20 09:08 | RAD ---
XR Chest Pa Lat STANDARD History: Preop cardiac catheterization Comparison: Radiograph July 12, 2019 Findings: Heart size is enlarged. Dual-lead pacer leads project over the right atrium and right ventr icle. New small right effusion. Trace left effusion. No pneumothorax. No confluent airspace consolidation. No acute osseous abnormality. Impression: New small bilateral pleural effusions.
[2019-08-20 09:25] LABS: #Basophils 0.1 thou/uL (0.0-0.2); #Eosinphils 0.2 thou/uL (0.0-0.7); #Lymphocytes 1.2 thou/uL (1.20-3.40); #Monocytes 0.8 thou/uL (0.11-0.59); #Neutrophils 6.9 thou/uL (1.40-6.50); %Basophils 0.7 % (0.0-1.0); %Eosinophils 2.5 % (0.0-10.0); %Lymphocytes 13.1 % (21.0-51.0); %Monocytes 8.4 % (0.0-10.0); %Neutrophils 75.3 % (42.0-75.0); Hemoglobin 9.6 g/dL (14.0-18.0); Mean Corpuscular HGB CONC 35.8 g/dL (32.0-36.0); Mean Corpuscular Hemoglobin 29.7 pg (27.0-31.0); Mean Corpuscular Volume 82.9 fL (78.0-98.0); Mean Platelet Volume 7.9 fL (7.4-10.4); Platelet Count 222 thou/uL (130-400); Red Blood Cell (RBC) Count 3.25 mill/uL (4.70-6.10); White Blood Cell (WBC) Count 9.1 thou/uL (4.8-10.8)
[2019-08-20 09:49] LABS: ALT (SGPT) 21 U/L (8-55); AST (SGOT) 24 U/L (5-34); Alkaline Phosphatase 80 U/L (40-110); Anion Gap 11 mmol/L (10-20); BUN (Urea Nitrogen) 26 mg/dL (8.4-25.7); Bilirubin, Total 0.4 mg/dL (0.2-1.2); Calc. Creatinine Clearance 0 mL/min (70-130); Carbon Dioxide 28 mmol/L (23-31); Cardiac Risk 3.2 (Less than 4.5); Chloride 107 mmol/L (98-107); Cholesterol 128 mg/dl (< 200 Desired); Estimated GFR-MDRD 54; Globulin 2.3 g/dL (2.4-3.5); Glucose 92 mg/dL (83-110); HDL Cholesterol 40 mg/dL (>60 Neg Risk); LDL Cholesterol, Calculated 74 mg/dL; Potassium 4.5 mmol/L (3.5-5.1); Protein, Total 6.3 g/dL (5.8-8.1); Sodium 141 mmol/L (136-145); Triglycerides 68 mg/dL (Less than 150)
== END 2019-08-20 06:09 | disposition home or self-care (01) ==
LOC: LABBT 06:08
PROVIDERS: ATTEND Internal Medicine Cardiovascular Disease
DX: Z01.818 Encounter for other preprocedural examination (principal); I35.0 Nonrheumatic aortic (valve) stenosis; R93.1 Abnormal findings on diagnostic imaging of heart and coronary circulation; J90 Pleural effusion, not elsewhere classified; Z95.1 Presence of aortocoronary bypass graft
CPT/HCPCS: 71046; 80053; 80061; 85025; 93005; 93010

== ENCOUNTER 2019-08-27 06:06 | Inpatient (IN) | payer MEDICARE ==
[2019-08-20 08:29] VITALS: BMI 25.1
[2019-08-27] MEDS ORDERED: Heparin 10,000 UNITS/1 ML VIAL ONE (06:35)
[2019-08-27] MEDS ORDERED: Fentanyl 100 MCG/2 ML VIAL ONE (07:15)
[2019-08-27] MEDS ORDERED: Midazolam HCl 2 mg/2 ml Vial ONE (07:15)
[2019-08-27] MEDS ORDERED: Bivalirudin 250 MG VIAL ONE (08:30)
[2019-08-27] MEDS ORDERED: Clopidogrel Bisulfate 300 MG TAB ONE (08:36)
[2019-08-27] MEDS ORDERED: Iopamidol 370 76% 100 ML VIAL ONE (08:50)
[2019-08-27] MEDS ORDERED: Iopamidol 370 76% 50 ML VIAL FS ONE (08:50)
[2019-08-27] MEDS ORDERED: Morphine 2 MG/ML SYRINGE SLOW IVP PRN (09:32)
[2019-08-27] MEDS ORDERED: Nitroglycerin 0.4 MG TAB (25 Tab Bottle) SL PRN (09:32)
[2019-08-27] MEDS ORDERED: Morphine 4 MG/ML VIAL SLOW IVP PRN (09:32)
[2019-08-27] MEDS ORDERED: Sodium Chloride 0.9% 1,000 ML IV SCH (09:45)
[2019-08-27] MEDS ORDERED: Morphine 2 MG/ML SYRINGE ONE ×2 (09:55→14:00)
[2019-08-27] MEDS ORDERED: Ondansetron PF 4 MG/2 ML Vial ONE (10:04)
[2019-08-27] MEDS: Sodium Chloride 0.9% 1,000 ML IV SCH (16:15)
[2019-08-27] MEDS ORDERED: Amiodarone 200 MG TAB PO SCH (17:30)
[2019-08-27] MEDS ORDERED: Senokot S 8.6-50 MG TAB PO PRN (17:30)
[2019-08-27] MEDS: Atorvastatin Calcium 40 MG TAB PO SCH (18:25)
[2019-08-27] MEDS: Carvedilol 6.25 MG TAB PO SCH (18:26)
[2019-08-27] MEDS: hydrALAZINE 25 MG TAB PO SCH (18:27)
[2019-08-27] MEDS: Donepezil HCl 10 MG TAB PO SCH (18:27)
[2019-08-28] MEDS ORDERED: Ondansetron PF 4 MG/2 ML Vial SLOW IVP PRN (03:16)
[2019-08-28 04:51] LABS: ALT (SGPT) 16 U/L (8-55); AST (SGOT) 24 U/L (5-34); Albumin 3.4 g/dL (3.4-4.8); Alkaline Phosphatase 74 U/L (40-110); Anion Gap 14 mmol/L (10-20); BUN (Urea Nitrogen) 24 mg/dL (8.4-25.7); Bilirubin, Total 0.4 mg/dL (0.2-1.2); Calc. Creatinine Clearance 66 mL/min (70-130); Calcium 8.4 mg/dL (7.8-10.44); Carbon Dioxide 22 mmol/L (23-31); Chloride 108 mmol/L (98-107); Estimated GFR-MDRD 59; Globulin 2.5 g/dL (2.4-3.5); Glucose 107 mg/dL (83-110); Potassium 4.5 mmol/L (3.5-5.1); Protein, Total 5.9 g/dL (5.8-8.1); Sodium 139 mmol/L (136-145)
[2019-08-28] MEDS: Sodium Chloride 0.9% 1,000 ML IV SCH (05:06)
[2019-08-28 06:02] LABS: Hemoglobin 9.3 g/dL (14.0-18.0); Mean Corpuscular HGB CONC 31.4 g/dL (32.0-36.0); Mean Corpuscular Hemoglobin 25.9 pg (27.0-31.0); Mean Corpuscular Volume 82.5 fL (78.0-98.0); RBC Distribution Width 16.8 % (11.5-14.5); Red Blood Cell (RBC) Count 3.59 mill/uL (4.70-6.10)
[2019-08-28 06:11] LABS: #Basophils 0.1 thou/uL (0.0-0.2); #Eosinphils 0.2 thou/uL (0.0-0.7); #Lymphocytes 1.1 thou/uL (1.20-3.40); #Monocytes 0.6 thou/uL (0.11-0.59); #Neutrophils 4.9 thou/uL (1.40-6.50); %Basophils 0.7 % (0.0-1.0); %Eosinophils 2.2 % (0.0-10.0); %Lymphocytes 15.8 % (21.0-51.0); %Monocytes 8.8 % (0.0-10.0); %Neutrophils 72.5 % (42.0-75.0); Anisocytosis SLIGHT = 6-15 cells (100X) (0-5/hpf); Elliptocytes SLIGHT = 2-5 cells (100X) (0-1/hpf); MDiff Complete? YES; Mean Platelet Volume 8.2 fL (7.4-10.4); Platelet Count 183 thou/uL (130-400); White Blood Cell (WBC) Count 6.8 thou/uL (4.8-10.8)
[2019-08-28] MEDS: Carvedilol 6.25 MG TAB PO SCH ×2 (09:04→20:16)
[2019-08-28] MEDS: Aspirin Chewable 81 MG TAB PO SCH (09:05)
[2019-08-28] MEDS: Clopidogrel Bisulfate 75 MG TAB PO SCH (09:05)
[2019-08-28] MEDS: hydrALAZINE 25 MG TAB PO SCH (09:05)
[2019-08-28] MEDS: Amiodarone 200 MG TAB PO SCH (09:05)
[2019-08-28] MEDS ORDERED: Senokot S 8.6-50 MG TAB PO PRN (10:26)
[2019-08-28] MEDS: Senokot 8.6 MG TAB PO PRN (10:38)
--- NOTE | 2019-08-28 11:37 | EKG ---
Test Reason : S/P STENT Blood Pressure : / mmHG Vent. Rate : 061 BPM Atrial Rate : 061 BPM P-R Int : 378 ms QRS Dur : 126 ms QT Int : 486 ms P-R-T Axes : 016 050 143 degrees QTc Int : 489 ms Atrial-paced rhythm with prolonged AV conduction Non-specific intra-ventricular conduction block T wave abnormality, consider anterolateral ischemia Abnormal ECG When compared with ECG of 20-AUG-2019 07:51, (Unconfirmed) No significant change was found Confirmed by JOSE G SHIN, DR. Sung ([id number]) on 08/28/2019 11:36:50 AM Referred By: RAIZA Confirmed By:DR. Pineda ARAIZA MD
[2019-08-28] MEDS ORDERED: Furosemide 20 MG TAB PO SCH (14:30)
[2019-08-28] MEDS: cloNIDine 0.1 MG TAB PO PRN (17:30)
[2019-08-28] MEDS: Atorvastatin Calcium 40 MG TAB PO SCH (20:16)
[2019-08-28] MEDS: Donepezil HCl 10 MG TAB PO SCH (20:16)
--- NOTE | 2019-08-28 22:55 | EKG ---
Test Reason : Blood Pressure : / mmHG Vent. Rate : 068 BPM Atrial Rate : 068 BPM P-R Int : 200 ms QRS Dur : 116 ms QT Int : 446 ms P-R-T Axes : 034 033 163 degrees QTc Int : 474 ms Electronic atrial pacemaker Nonspecific ST and T wave abnormality Prolonged QT Abnormal ECG When compared with ECG of 27-AUG-2019 21:08, (Unconfirmed) No significant change was found Confirmed by JOSE G SHIN, . SKavitha (4) on 08/28/2019 10:55:12 PM Referred By: RAIZA Confirmed By:DR. Pineda ARAIZA MD
[2019-08-29 04:45] LABS: Anion Gap 11 mmol/L (10-20); BUN (Urea Nitrogen) 22 mg/dL (8.4-25.7); Calc. Creatinine Clearance 63 mL/min (70-130); Calcium 8.2 mg/dL (7.8-10.44); Carbon Dioxide 25 mmol/L (23-31); Chloride 106 mmol/L (98-107); Estimated GFR-MDRD 56; Glucose 154 mg/dL (83-110); Potassium 3.9 mmol/L (3.5-5.1); Sodium 138 mmol/L (136-145)
[2019-08-29] MEDS ORDERED: Furosemide 20 MG TAB PO SCH (09:00)
[2019-08-29] MEDS: Amiodarone 200 MG TAB PO SCH (09:10)
[2019-08-29] MEDS: Carvedilol 6.25 MG TAB PO SCH ×2 (09:10→20:43)
[2019-08-29] MEDS: Apixaban 5 MG TAB PO SCH ×2 (09:10→20:43)
[2019-08-29] MEDS: Aspirin Chewable 81 MG TAB PO SCH (09:10)
[2019-08-29] MEDS: metFORMIN 500 MG TAB PO SCH (09:10)
[2019-08-29] MEDS: Clopidogrel Bisulfate 75 MG TAB PO SCH (09:11)
[2019-08-29] MEDS: cloNIDine 0.1 MG TAB PO PRN (16:04)
[2019-08-29] MEDS: Senokot 8.6 MG TAB PO PRN (16:04)
[2019-08-29] MEDS: Atorvastatin Calcium 40 MG TAB PO SCH (20:43)
[2019-08-29] MEDS: Donepezil HCl 10 MG TAB PO SCH (20:44)
[2019-08-29] MEDS: Sacubitril 49 MG/Valsartan 51 MG TABLET PO SCH (20:44)
[2019-08-30 05:09] LABS: Anion Gap 14 mmol/L (10-20); BUN (Urea Nitrogen) 19 mg/dL (8.4-25.7); Calc. Creatinine Clearance 78 mL/min (70-130); Calcium 8.8 mg/dL (7.8-10.44); Carbon Dioxide 26 mmol/L (23-31); Chloride 105 mmol/L (98-107); Estimated GFR-MDRD 72; Glucose 108 mg/dL (83-110); Potassium 3.9 mmol/L (3.5-5.1); Sodium 141 mmol/L (136-145)
[2019-08-30] MEDS ORDERED: Furosemide 40 MG TAB PO SCH (07:30)
[2019-08-30 07:42] VITALS: TEMP 97.9
[2019-08-30] MEDS: metFORMIN 500 MG TAB PO SCH (07:50)
[2019-08-30] MEDS: Carvedilol 6.25 MG TAB PO SCH (09:08)
[2019-08-30] MEDS: Amiodarone 200 MG TAB PO SCH (09:08)
[2019-08-30] MEDS: Apixaban 5 MG TAB PO SCH (09:08)
[2019-08-30] MEDS: Clopidogrel Bisulfate 75 MG TAB PO SCH (09:08)
[2019-08-30] MEDS: Sacubitril 49 MG/Valsartan 51 MG TABLET PO SCH (09:08)
[2019-08-30] MEDS: Senokot 8.6 MG TAB PO PRN (09:11)
[2019-08-30 11:14] VITALS: BP 149/73
--- NOTE | 2019-08-30 16:56 | DIS ---
DATE OF ADMISSION: 08/27/2019 DATE OF DISCHARGE: 08/30/2019 DISCHARGE DIAGNOSES: 1. Ischemic cardiomyopathy with ejection fraction of 30% to 35%. 2. Status post Coronary artery bypass grafting with 2/3 grafts patent - right coronary artery graft occluded, which is an old finding. 3. Placement of drug-eluting stent in the mid circumflex, this admission. 4. Moderate aortic stenosis with catheterization, valve area of 1.37 cm2. 5. Non-ST elevation myocardial infarction in July 2018 with placement of bare-metal stent in the obtuse marginal graft with continued good results. 6. Status post dual-chamber pacemaker. 7. Paroxysmal atrial fibrillation - cardioverted in September 2017. Last episode on the pacemaker was in December 2018. 8. Atrial tachycardia, well controlled. 9. Status post radiofrequency ablation of atrial flutter. 10. Diabetes. 11. Hypercholesterolemia, poorly controlled with LDL of 74 (55 in the past on same dose of atorvastatin). 12. Hypertension with metoprolol dropping off his medication list at some point in time for unclear reasons. 13. LifeVest placed. DISCHARGE DISPOSITION: The patient will be seen on September 11, 2019, with BMP being obtained. DISCHARGE MEDICATIONS: 1. Aspirin 81 will be discontinued. 2. Amiodarone 200 mg daily. 3. Eliquis 5 mg b.i.d. 4. Atorvastatin 40 at bedtime. 5. Carvedilol 12.5 b.i.d. 6. Clonidine 0.1 mg q.6 hours p.r.n. 7. Plavix 75 mg q.a.m. for at least 1 year. 8. Aricept 10 mg at bedtime. 9. Furosemide 40 q.a.m. 10. Namenda 10 mg b.i.d. 11. Metformin 500 mg q.a.m. 12. Entresto 49/51 b.i.d. 13. Senokot p.r.n. HOSPITAL COURSE: It was noted on routine followup echo that Mr. Montero's ejection fraction had fallen from 50% to 55% to 30% to 35%. This is felt not to be due to ventricular pacing with this being less than 0.1%. His aortic stenosis is somewhat worsen and there was concern that this may have caused a problem. It was felt that he needed to undergo cardiac catheterization and with the need to evaluate bypass graft and creatinine recently of 1.35, he was brought in the day before for intravenous hydration. He underwent cardiac catheterization. The mean aortic valve gradient was 12 mm with an aortic valve area of 1.37 cm2. Left ventriculogram revealed inferobasal akinesis and moderate global hypokinesis with ejection fraction of 30% to 35%. The LAD was totally occluded. First obtuse marginal was totally occluded. There was an 80% mid circumflex lesion. There was a 50% lesion in the second obtuse marginal and a 60% lesion in the 3rd obtuse marginal. Right coronary artery was totally occluded proximally with a distal vessel filling retrograde from the circumflex and the SILVERIO to the LAD. Bypass grafts revealed patent SILVERIO to the LAD, patent obtuse marginal with 30% in-stent restenosis. The right coronary artery graft was occluded, which is an old finding. He underwent placement of Synergy 2.5 x 16 mm in the mid circumflex with reduction from 80% to 0%. He was observed overnight and hydrated. His blood pressure was difficult to control. He was placed on gradually increasing doses of carvedilol and Entresto with close monitoring of his renal function. At the time of discharge, his creatinine actually is 1.00. He continues to have some mild peripheral edema. He is placed on furosemide 20 mg daily. During this hospitalization, this is being increased to 40 mg at the time of discharge. Job ID: [id number]
== END 2019-08-30 13:23 | disposition home or self-care (01) | DRG 247 ==
LOC: CCL 06:06 → 2NO 09:28
PROVIDERS: ADMIT Internal Medicine Cardiovascular Disease; ATTEND Internal Medicine Cardiovascular Disease
PROC: 4A023N7 Measurement of Cardiac Sampling and Pressure, Left Heart, Percutaneous Approach (ICD-10-PCS; principal; 2019-08-27)
PROC: 027034Z Dilation of Coronary Artery, One Artery with Drug-eluting Intraluminal Device, Percutaneous Approach (ICD-10-PCS; 2019-08-27)
PROC: B2111ZZ Fluoroscopy of Multiple Coronary Arteries using Low Osmolar Contrast (ICD-10-PCS; 2019-08-27)
PROC: B2131ZZ Fluoroscopy of Multiple Coronary Artery Bypass Grafts using Low Osmolar Contrast (ICD-10-PCS; 2019-08-27)
PROC: B2151ZZ Fluoroscopy of Left Heart using Low Osmolar Contrast (ICD-10-PCS; 2019-08-27)
DX: T82.855A Stenosis of coronary artery stent, initial encounter (principal); I25.810 Atherosclerosis of coronary artery bypass graft(s) without angina pectoris; I47.1 Supraventricular tachycardia; I25.5 Ischemic cardiomyopathy; I48.0 Paroxysmal atrial fibrillation; I35.0 Nonrheumatic aortic (valve) stenosis; I25.2 Old myocardial infarction; E11.9 Type 2 diabetes mellitus without complications; E78.00 Pure hypercholesterolemia, unspecified; I10 Essential (primary) hypertension; Y83.8 Other surgical procedures as the cause of abnormal reaction of the patient, or of later complication, without mention of misadventure at the time of the procedure; Z95.1 Presence of aortocoronary bypass graft; Z95.5 Presence of coronary angioplasty implant and graft
CPT/HCPCS: 36415; 36416; 76942; 80048; 80053; 85025; 85347; 92928; 92977; 93005; 93010; 93460; 93561; 93567; 93798; 99152; 99153; C1725; C1769; C1874; C1887; C9600; J0583; J1642; J1644; J2250; J2270; J2405; J3010; Q9967

== ENCOUNTER 2020-06-20 19:29 | Inpatient (IN) | payer MEDICARE ==
--- NOTE | 2020-06-20 20:01 | RAD ---
RADIOGRAPH CHEST 1 VIEW: 06/20/20 at 7:53 p.m. HISTORY: 79-year-old male status post acute chest trauma from fall. Loss of consciousness. Concern for aspirat ion. FINDINGS: There is no air space density, pulmonary edema, or pneumothorax. The lateral costophrenic angles are sharp. There are sternotomy wires. There is a pacemaker with left sided generator. IMPRESSION: No acute pulmonary findings. soco [] POS: JIN
[2020-06-20 20:02] LABS: #Eosinphils 0.1 thou/uL (0.0-0.7); #Lymphocytes 1.1 thou/uL (1.20-3.40); #Monocytes 0.6 thou/uL (0.11-0.59); #Neutrophils 2.4 thou/uL (1.40-6.50); %Basophils 0.6 % (0.0-1.0); %Eosinophils 2.2 % (0.0-10.0); %Lymphocytes 25.8 % (21.0-51.0); %Monocytes 14.9 % (0.0-10.0); %Neutrophils 56.6 % (42.0-75.0); Hemoglobin 11.2 g/dL (14.0-18.0); Mean Corpuscular HGB CONC 39.1 g/dL (32.0-36.0); Mean Corpuscular Hemoglobin 37.3 pg (27.0-31.0); Mean Corpuscular Volume 95.4 fL (78.0-98.0); Mean Platelet Volume 6.8 fL (7.4-10.4); Platelet Count 180 thou/uL (130-400); RBC Distribution Width 13.8 % (11.5-14.5); White Blood Cell (WBC) Count 4.2 thou/uL (4.8-10.8)
[2020-06-20 20:23] LABS: ALT (SGPT) 13 U/L (8-55); AST (SGOT) 13 U/L (5-34); Albumin 4.1 g/dL (3.4-4.8); Alkaline Phosphatase 56 U/L (40-110); Anion Gap 18 mmol/L (10-20); BUN (Urea Nitrogen) 30 mg/dL (8.4-25.7); Bilirubin, Total 0.4 mg/dL (0.2-1.2); Calc. Creatinine Clearance 0 mL/min (70-130); Calcium 8.6 mg/dL (7.8-10.44); Carbon Dioxide 19 mmol/L (23-31); Chloride 100 mmol/L (98-107); Globulin 2.9 g/dL (2.4-3.5); Glucose 107 mg/dL (83-110); Potassium 3.9 mmol/L (3.5-5.1); Sodium 133 mmol/L (136-145)
--- NOTE | 2020-06-20 20:26 | CT ---
CT OF BRAIN PERFORMED WITHOUT CONTRAST ENHANCEMENT: 06/20/20 HISTORY: Fall with head injury. Patient is on Eliquis. COMPARISON: 10/23/18 study. There is generalized ventricular and sulcal prominence. There is no signs of intracerebral hemorrhage or extra-axial fluid collections. The mastoid air cells and visualized sinuses are clear. IMPRESSION: No acute intracranial abnormalities. POS: OFF
[2020-06-20 20:48] LABS: Bilirubin Negative (Negative); Blood, Urine Negative (Negative); Clarity Clear (Clear); Glucose, Urine (Dipstick) Normal (Negative); Ketone, Urine Negative (Negative); Leukocyte Negative Leu/uL (Negative); Nitrite Negative (Negative); Protein, Urine (Dipstick) Negative (Neg-Trace); Urobilinogen Normal mg/dL (Less than 2); pH, Urine 5.5 (5.0-9.0)
[2020-06-20] MEDS ORDERED: HumaLOG 300 UNITS/3 ML VIAL SC PRN ×2 (22:43)
[2020-06-20] MEDS ORDERED: Acetaminophen 325 MG TAB PO PRN (22:43)
[2020-06-20] MEDS ORDERED: Dextrose 5% in Water 1,000 ML IV PRN (22:43)
[2020-06-20] MEDS ORDERED: Dextrose 50% Abboject 50 ML SYRINGE SLOW IVP PRN (22:43)
--- NOTE | 2020-06-20 22:43 | PDOC.FPRHP ---
- History of Present Illness Chief Complaint: syncope History of Present Illness: Pt is an 79yo male with PMH of CHF, DM, HTN, paroxysmal a fib and alcohol abuse who presents after one episode of syncope. He states he was in his kitchen when he suddenly lost consciousness. He states " I felt fine before I passed out and then felt fine shortly after." No one witnessed this episode. This is the first time this has happened. He denies any prodromal sx, no loss of bowel or bladder function, no CP or SOB. He has not had any recent illness and has been taking his medications as prescribed and eating/drinking per normal. On questioning he stated he does not drink alcohol but after speaking with his daughter, she reports he drinks 6 to 30 beers a day. ED Course: 1L NS - Allergies/Adverse Reactions Allergies Allergy/AdvReac Type Severity Reaction Status Date / Time codeine Allergy Verified 06/20/20 22:52 - Home Medications Medication Instructions Recorded Confirmed Type metFORMIN [Glucophage] 500 mg PO BID-WM #60 tab 04/14/18 06/20/20 Rx Atorvastatin Calcium 40 mg PO HS #30 tablet 07/25/18 06/20/20 Rx Amiodarone HCl 200 mg PO DAILY 10/22/18 06/20/20 History Apixaban [Eliquis] 5 mg PO BID #60 tablet 12/29/18 06/20/20 Rx Donepezil HCl [Aricept] 10 mg PO HS 08/20/19 06/20/20 History Memantine HCl 10 mg PO BID 08/20/19 06/20/20 History Sennosides/Docusate Sodium 1 each PO PRN PRN 08/20/19 06/20/20 History [Docusate Sodium-Sennosides Tab] Clopidogrel Bisulfate [Plavix] 75 mg PO DAILY #30 tab 08/30/19 06/20/20 Rx Furosemide [Lasix] 40 mg PO DAILY-AC #60 tab 08/30/19 06/20/20 Rx Nitroglycerin [Nitrostat] 0.4 mg SL Q5MIN PRN tab 08/30/19 06/20/20 Rx Sacubitril/Valsartan 49/51 1 tab PO BID #60 tab 08/30/19 06/20/20 Rx [Entresto 49 mg-51 mg Tablet] cloNIDine HCl 0.1 mg PO Q6H PRN #0 08/30/19 06/20/20 Rx 5-Hydroxytryptophan (5-HTP) [5-HTP] 200 mg PO HS 06/20/20 06/20/20 History Carvedilol [Coreg] 25 mg PO BID 06/20/20 06/20/20 History Isosorbide Mononitrate [Isosorbide 30 mg PO DAILY 06/20/20 06/20/20 History Mononitrate ER] Melatonin 4 mg PO HS 06/20/20 06/20/20 History busPIRone HCl [Buspirone HCl] 1 tab PO BID 06/20/20 06/20/20 History - History PMHx: CHF, DM, paroxysmal a fib, alcohol abuse, IL, CAD, HTN, aortic stenosis PSHx: CABG, pacemaker, ablation for a flutter FHx: non contributory Social: former smoker, drinks 6-30 beers daily, no drug use. Lives at home with his daughter - Review of Systems General: denies: fever/chills, weight/appetite/sleep changes Eyes: denies: vision changes ENT: denies: nasal congestion Respiratory: denies: cough, congestion, shortness of breath Cardiovascular: denies: chest pain, edema, orthopnea Gastrointestinal: denies: nausea, vomiting, diarrhea Genitourinary: denies: dysuria Skin: denies: rashes Musculoskeletal: denies: pain Neurological: reports: syncope - Vital signs BP: 168/88, HR 71, RR 20, O2 99% on RA Tmax 99.1, Wt 89 kg - Physical Exam Constitutional: NAD, awake, alert and oriented HEENT: normocephalic and atraumatic, grossly normal vision, grossly normal hearing -HEENT: injection of sclera -Neck: JVD present -Heart: 3/6 systolic murmur heart at upper sternal border that radiates to carotids Lungs: CTAB, no respiratory distress, no wheezing Abdomen: soft, non-tender Musculoskeletal: normal structure, normal tone Neurological: no focal deficit, normal sensation Skin: no rash/lesions Heme/Lymphatic: no unusual bruising or bleeding -Psychiatric: has some memory issues FMR H&P: Results - Labs Result Diagrams: 06/21/20 04:27 06/21/20 04:27 Lab results: WBC 4.2 thou/uL (4.8-10.8) L 06/20/20 19:50 Hgb 11.2 g/dL (14.0-18.0) L 06/20/20 19:50 Hct 28.6 % (42.0-52.0) L 06/20/20 19:50 MCV 95.4 fL (78.0-98.0) 06/20/20 19:50 Plt Count 180 thou/uL (130-400) 06/20/20 19:50 Neutrophils % 56.6 % (42.0-75.0) 06/20/20 19:50 Sodium 133 mmol/L (136-145) L 06/20/20 19:50 Potassium 3.9 mmol/L (3.5-5.1) 06/20/20 19:50 Chloride 100 mmol/L (98-107) 06/20/20 19:50 Carbon Dioxide 19 mmol/L (23-31) L 06/20/20 19:50 BUN 30 mg/dL (8.4-25.7) H 06/20/20 19:50 Creatinine 1.33 mg/dL (0.7-1.3) H 06/20/20 19:50 Glucose 107 mg/dL (83-110) 06/20/20 19:50 Lactic Acid 2.4 mmol/L (0.5-2.2) H 06/20/20 19:50 Calcium 8.6 mg/dL (7.8-10.44) 06/20/20 19:50 Total Bilirubin 0.4 mg/dL (0.2-1.2) 06/20/20 19:50 AST 13 U/L (5-34) 06/20/20 19:50 ALT 13 U/L (8-55) 06/20/20 19:50 Alkaline Phosphatase 56 U/L (40-110) 06/20/20 19:50 B-Natriuretic Peptide 267.8 pg/mL (0-100) H 06/20/20 19:50 Serum Total Protein 7.0 g/dL (5.8-8.1) 06/20/20 19:50 Albumin 4.1 g/dL (3.4-4.8) 06/20/20 19:50 Urine Ketones Negative mg/dL (Negative) 06/20/20 20:30 Urine Blood Negative (Negative) 06/20/20 20:30 Urine Nitrite Negative (Negative) 06/20/20 20:30 Ur Leukocyte Esterase Negative Jewel/uL (Negative) 06/20/20 20:30 FMR H&P: A/P - Plan Pt is an 79yo male with PMH HTN, DM, aortic stenosis, CAD s/p CABG, paroxysmal a fib and alcohol use disorder who presents with one episode of syncope #syncope -etiology: significant heart history, including cardiomyopathy and arrhythmia, also alcohol use disorder, possible orthostasis, less likely stroke -CT brain: no acute findings -echo ordered for am, consider consulting cardiology. Dr Stein is his deli worker -trop 0.01, continue to trend -admit to tele for obs -continuous tele monitoring #IVONE -BUN/Cr 12/07. -given 1L NS in ED, will recheck in am -due to hx of CHF will monitor fluid status closely #CHF -JVD present, BNP 267, denies any sx of fluid overload -CXR: no acute findings -s/p pacemaker in 2019 -echo in 2018: EF 50-55%, , TR -pending repeat echo -strict I/Os, diet with fluid restriction #alcohol use disorder -ASE protocol -pending alcohol level #DM -continue home meds -accuchecks ACHS, mild SSI #Chronic Medical Conditions:CAD s/p CABG, HTN, Aortic Stenosis, paroxysmal a fib s/p ablation, IL -aware -continue home meds -continuous tele monitoring Code: Full PCP: [place] COMER Ppx: Pollo IVF: SL Dispo: Admit to tele obs, pending echo in am, LOS <48hrs FMR H&P: Upper Level - Plan Date/Time: 06/20/20 [id number] I, [Chika Gallegos], have evaluated this patient and agree with findings/plan as outlined by fall internship resident. Pertinent changes/additions are listed here. 79 yo M presents after syncopal episode. He was walking at home when he lost consciousness and woke up on the floor. Denies preceding symptoms including dizziness, palpitations. He has not had this happen before. He has an extensive cardiac history including IL with stents and CABG and sees Dr. Stein. He currently denies chest pain and feels "back to baseline." His EKG showed sinus rhythm with LAD and first degree AV block. Atrial paced rhythm. Troponin negative. Had a mild IVONE with Cr 1.33 and elevated lactic acid of 2.4 and received a 1L NS bolus. Troponin negative. On exam he had a 3/6 systolic murmur. Patient's daughter said patient drinks 6-30 beers/day thought patient denied in room. We will admit him for tele monitoring, obtain TTE and complete trending of troponin. Will start ASE protocol and check alcohol level. Suspect syncope could be cardiac b/o of history but also consider volume depletion with IVONE and excessive alcohol use. Recheck BMP in AM. Code: Full PCP: Dr. Burris/ALMA ROSA DVT ppx: home eliquis LOS: <[address] Munoz on 06/20/20 Addendum - Attending - Attending Attestation Date/Time: 06/21/20 7100 I personally evaluated the patient and discussed the management with Dr. Bundy/El I agree with the History, Examination, Assessment and Plan documented above with any addition or exceptions noted below.
[2020-06-20 23:41] VITALS: BMI 27.4
[2020-06-20] MEDS ORDERED: cloNIDine 0.1 MG TAB PO PRN (23:41)
[2020-06-20] MEDS ORDERED: Nitroglycerin 0.4 MG TAB (25 Tab Bottle) SL PRN (23:41)
[2020-06-20] MEDS ORDERED: Senokot S 8.6-50 MG TAB PO PRN (23:41)
[2020-06-21 00:07] LABS: Lactic Acid 2.6 mmol/L (0.5-2.2)
[2020-06-21 00:09] LABS: Troponin I 0.014 ng/mL (< 0.028)
[2020-06-21] MEDS ORDERED: Lactated Ringer's 500 ML IV SCH (01:00)
[2020-06-21 04:48] LABS: #Eosinphils 0.1 thou/uL (0.0-0.7); #Lymphocytes 1.2 thou/uL (1.20-3.40); #Monocytes 0.6 thou/uL (0.11-0.59); #Neutrophils 2.7 thou/uL (1.40-6.50); %Basophils 0.2 % (0.0-1.0); %Eosinophils 1.4 % (0.0-10.0); %Lymphocytes 26.1 % (21.0-51.0); %Monocytes 13.3 % (0.0-10.0); Hemoglobin 10.6 g/dL (14.0-18.0); Mean Corpuscular HGB CONC 38.9 g/dL (32.0-36.0); Mean Corpuscular Hemoglobin 37.2 pg (27.0-31.0); Mean Corpuscular Volume 95.7 fL (78.0-98.0); Platelet Count 175 thou/uL (130-400); Red Blood Cell (RBC) Count 2.84 mill/uL (4.70-6.10); White Blood Cell (WBC) Count 4.6 thou/uL (4.8-10.8)
[2020-06-21 05:04] LABS: Lactic Acid 0.9 mmol/L (0.5-2.2)
[2020-06-21 05:09] LABS: Anion Gap 14 mmol/L (10-20); BUN (Urea Nitrogen) 25 mg/dL (8.4-25.7); Calc. Creatinine Clearance 60 mL/min (70-130); Calcium 8.3 mg/dL (7.8-10.44); Carbon Dioxide 22 mmol/L (23-31); Chloride 104 mmol/L (98-107); Glucose 91 mg/dL (83-110); Potassium 4.1 mmol/L (3.5-5.1); Sodium 136 mmol/L (136-145)
[2020-06-21 05:14] LABS: Troponin I 0.012 ng/mL (< 0.028)
--- NOTE | 2020-06-21 06:35 | PDOC.FM ---
- Subjective Subjective: Feeling well this morning, no episodes of syncope or dizziness overnight. Reports similar event that happened 5-6yrs ago. Reports he walks 3x per day and usually has no issues, was walking in kitchen when this occurred. No events on tele since admission. Denies CP, SOB. - Objective MAR Reviewed: Yes Vital Signs & Weight: Vital Signs (12 hours) Temp Pulse Resp BP BP Pulse Ox 06/21/20 06:29 62 170/72 H 06/21/20 04:00 98.8 F 66 15 188/76 H 188/76 H 97 06/20/20 22:26 160/72 H 06/20/20 22:25 98.4 F 65 18 160/72 H 96 Weight Weight 89.222 kg I&O: 06/19/20 06/20/20 06/21/20 06:59 06:59 06:59 Intake Total 500 Balance 500 Result Diagrams: 06/21/20 04:27 06/21/20 04:27 Phys Exam - Physical Examination Constitutional: NAD HEENT: PERRLA, moist MMs, sclera anicteric Neck: supple mild JVD Respiratory: no wheezing, clear to auscultation bilateral Cardiovascular: RRR 3/6 systolic murmur, radiates to carotids Gastrointestinal: soft, non-tender, positive bowel sounds Musculoskeletal: pulses present (radial) Neurological: non-focal, moves all 4 limbs Psychiatric: normal affect Deviation from normal: alert and oriented to person, place, situation but not time Skin: no rash Dx/Plan - Plan Plan: 79yo male with pmh of HTN, DM, aortic stenosis, CAD s/p CABG, paroxysmal a fib and alcohol use disorder who presents with one episode of syncope Syncope - DDx: Related to Aortic stenosis vs cardiac cause vs alcohol use disorder vs orthostasis - CT brain: no acute findings. Trop neg x3 - Echo ordered, consider cards consult. Dr Stein is his k 9 handler/ deputy - Will interrogate pacemaker HRpEF - JVD present, BNP 267, denies any sx of fluid overload - CXR: no acute findings - Echo in 2018: EF 50-55%, , TR - Echo ordered - Strict I/Os, HH diet, fluid restriction, daily wt Alcohol use disorder - 6-30 beers per day, denies hx of seizures - ASE protocol, start thiamine, folic acid and MV - Alcohol level 33 DM - continue home meds - accuchecks ACHS, mild SSI Chronic Medical Conditions:CAD s/p CABG, HTN, paroxysmal a fib s/p ablation, [place] - continue home meds - continuous tele monitoring Pacemaker placement in 2019 Aortic Stenosis - Moderate on Echo in 2018, 1.2cm2 Elevated lactic acid, resolved IVONE, resolved Code: Full PCP: Dayton COMER Ppx: Pollo Addendum - Attending - Attending Attestation Date/Time: 06/21/20 1024 I personally evaluated the patient and discussed the management with Dr. Mack. I agree with the History, Examination, Assessment and Plan documented above with any addition or exceptions noted below.
[2020-06-21 06:58] LABS: SARS-CoV-2 MS2 Positive; SARS-CoV-2 N Gene Negative; SARS-CoV-2 S Gene Negative; SARS-CoV-2 by NAA Not Detected (NotDetected); SARS-CoV-2 orf1ab Negative
[2020-06-21] MEDS: metFORMIN 500 MG TAB PO SCH ×2 (08:19→16:29)
[2020-06-21] MEDS: Clopidogrel Bisulfate 75 MG TAB PO SCH (08:19)
[2020-06-21] MEDS: Apixaban 5 MG TAB PO SCH ×2 (08:19→20:55)
[2020-06-21] MEDS: busPIRone HCl 10 MG TAB PO SCH ×2 (08:19→20:53)
[2020-06-21] MEDS: Multivitamin W/ Minerals 1 TAB PO SCH (08:19)
[2020-06-21] MEDS: Folic Acid 1 MG TAB PO SCH (08:20)
[2020-06-21] MEDS: Furosemide 40 MG TAB PO SCH (08:20)
[2020-06-21] MEDS: Sacubitril 49 MG/Valsartan 51 MG TABLET PO SCH ×2 (08:20→20:55)
[2020-06-21] MEDS: Amiodarone 200 MG TAB PO SCH (08:20)
[2020-06-21] MEDS: Carvedilol 25 MG TAB PO SCH ×2 (08:20→20:54)
[2020-06-21] MEDS: Thiamine 100 MG TAB PO SCH (08:22)
[2020-06-21] MEDS: Donepezil HCl 10 MG TAB PO SCH (20:54)
[2020-06-21] MEDS: Melatonin 3 MG TAB PO SCH (20:54)
[2020-06-21] MEDS: Atorvastatin Calcium 40 MG TAB PO SCH (20:54)
[2020-06-21] MEDS ORDERED: FLU VACC QS2020-21(65YR UP)/PF 240 MCG/0.7 ML SYRINGE IM ONE (21:00)
[2020-06-21] MEDS ORDERED: HYDROXYTRYPTOPHAN 100 MG PO SCH (21:00)
[2020-06-22 04:52] LABS: Platelet Count 156 thou/uL (130-400)
--- NOTE | 2020-06-22 07:02 | PDOC.FM ---
- Subjective Subjective: Doing well this AM. No overnight events or syncopal episodes. Concerned about his BP but denies HAMILTON, CP. Does endorse SOB. BM yesterday. - Objective MAR Reviewed: Yes Vital Signs & Weight: Vital Signs (12 hours) Temp Pulse Resp BP BP Pulse Ox 06/22/20 04:03 166/73 H 06/22/20 03:41 98.5 F 69 20 182/81 H 97 06/22/20 00:00 98.7 F 162/78 H 06/21/20 20:20 161/70 H 06/21/20 19:39 98.8 F 76 20 217/98 H 97 Weight Weight 88.677 kg I&O: 06/20/20 06/21/20 06/22/20 06:59 06:59 06:59 Intake Total 1360 980 Output Total 300 Balance 1360 680 Result Diagrams: 06/22/20 04:12 06/22/20 04:12 Phys Exam - Physical Examination Constitutional: NAD HEENT: moist MMs Neck: supple Respiratory: no wheezing, no rhonchi, clear to auscultation bilateral Cardiovascular: RRR 3/6 systolic murmur radiates to carotids Gastrointestinal: soft, non-tender Musculoskeletal: no edema, pulses present Neurological: moves all 4 limbs Psychiatric: normal affect, A&O x 3 Skin: no rash, normal turgor Dx/Plan - Plan Plan: 79yo male with pmh of HTN, DM, aortic stenosis, CAD s/p CABG, paroxysmal a fib and alcohol use disorder admitted for syncope Syncope likely 2/2 severe - Echo 06/21/20, consulted cards and CV surg. Will make NPO. - Pacemaker interrogated, awaiting read - Dr Stein is his dry box tender IVONE - Cr 1.24-> 1.6 HRpEF - Echo 06/21 EF 55-60%. Continue home lasix. - Strict I/Os, HH diet, fluid restriction, daily wt Alcohol use disorder - ASE protocol, daily thiamine, folic acid and MV DM - continue home meds - accuchecks ACHS, mild SSI Chronic Medical Conditions:CAD s/p CABG, HTN, paroxysmal a fib s/p ablation, CT - continue home meds - continuous tele monitoring Pacemaker placement in 2019 Aortic Stenosis - See above Code: Full PCP: Dayton COMER Ppx: Eliquis Addendum - Attending - Attending Attestation Date/Time: 06/22/20 4340 I personally evaluated the patient and discussed the management with Dr. Mack I agree with the History, Examination, Assessment and Plan documented above with any addition or exceptions noted below. Patient seen by Cardio-Vascular surgeon. Patient with Hx per Dr Clemons of Heart Cath in August with stent placement and consider medical terminologist potential TAVR candidacy.
[2020-06-22] MEDS: Carvedilol 25 MG TAB PO SCH ×2 (08:05→19:57)
[2020-06-22] MEDS: busPIRone HCl 10 MG TAB PO SCH ×2 (08:05→20:50)
[2020-06-22] MEDS: Folic Acid 1 MG TAB PO SCH (08:05)
[2020-06-22] MEDS: Clopidogrel Bisulfate 75 MG TAB PO SCH (08:05)
[2020-06-22] MEDS: Furosemide 40 MG TAB PO SCH (08:06)
[2020-06-22] MEDS: Amiodarone 200 MG TAB PO SCH (08:06)
[2020-06-22] MEDS: Multivitamin W/ Minerals 1 TAB PO SCH (08:06)
[2020-06-22] MEDS: metFORMIN 500 MG TAB PO SCH ×2 (08:06→15:55)
[2020-06-22] MEDS: Sacubitril 49 MG/Valsartan 51 MG TABLET PO SCH ×2 (08:06→19:58)
[2020-06-22] MEDS: Apixaban 5 MG TAB PO SCH (08:06)
[2020-06-22] MEDS: Thiamine 100 MG TAB PO SCH (09:47)
[2020-06-22] MEDS ORDERED: hydrALAZINE 20 MG/ML VIAL SLOW IVP PRN (12:17)
--- NOTE | 2020-06-22 12:20 | CON ---
DATE OF CONSULTATION: 06/22/2020 HISTORY OF PRESENT ILLNESS: Mr. Montero is an 79-year-old gentleman, who has undergone coronary artery bypass grafting in the remote past. He most recently underwent re-cardiac catheterization in August [address] tSein. He was found to have patent OM and LAD grafts. He underwent a DEPARTMENT SECRETARY and stenting of his circumflex. The RCA is chronically occluded and the graft is chronically occluded to his right coronary graft. He presented with history of syncope. He did not have any chest pain, shortness of breath, or headache. He has undergone echocardiogram which appears very similar to previous echocardiograms. His current aortic valve area is 1.12. The peak velocity across the aortic valve 325 cm/sec. Peak gradient is 42 with a mean of 21. This is consistent with a moderate to severe aortic stenosis. Ejection fraction on echocardiogram is 55% to 60%. Currently, the patient is asymptomatic, resting without any difficulties. The patient does have a history of atrial fibrillation and is currently taking Eliquis as an anticoagulant. He also has aspirin and Plavix for dual- antiplatelet therapy for his recent coronary stent. PAST MEDICAL HISTORY: 1. Aortic stenosis. 2. Coronary artery disease. 3. Diabetes mellitus. 4. Hypertension. 5. Dyslipidemia. 6. Paroxysmal atrial fibrillation. 7. Alcohol abuse. PAST SURGICAL HISTORY: 1. Coronary artery bypass grafting. 2. Pacemaker. 3. Ablation for atrial flutter. SOCIAL HISTORY: He drinks a significant beer volume daily. He does not use tobacco or other drugs. REVIEW OF SYSTEMS: Performed and is negative except as above. PHYSICAL EXAMINATION: GENERAL: This is a well-developed, well-nourished male. VITAL SIGNS: His height is 5 feet 11 inches and weight is 195 pounds. Temperature is 98.5, pulse is 70 and regular, and blood pressure is 182/81. NECK: Supple. He has bilateral bruits. CHEST: Clear bilaterally. HEART: Rhythm is regular. There is a systolic ejection murmur heard throughout the precordium. ABDOMEN: Soft and nontender. EXTREMITIES: No edema. ASSESSMENT AND PLAN: This is an 79-year-old gentleman, status post coronary artery bypass grafting in the past with recent coronary angiography and stenting of a circumflex vessel. He had transthoracic echocardiogram at the time of admission showing aortic valve area 1.12 and other target parameters meeting a moderate to severe aortic stenosis level. This is not significantly changed from his previous echocardiogram. His presenting symptom is syncope which is worrisome with aortic stenosis, but with his current level of stenosis I am not sure this is related. This is usually seen in end-stage aortic stenosis. Nevertheless, I think if he is willing, we could work him up for TAVR through the [facility] and see if he is a candidate based on anatomic end points. He is certainly high risk for open AVR. If he is agreeable, we can certainly get him enrolled once the COVID surge has resolved inside. Job ID: [id number] MTDD
--- NOTE | 2020-06-22 16:14 | CON ---
DATE OF CONSULTATION: HISTORY OF PRESENT ILLNESS: The patient is an 79-year-old gentleman, who presents for evaluation of syncope. The patient has a long history of coronary artery disease. He has previously undergone coronary artery bypass graft surgery. He also has a history of placement of electronic ventricular pacemaker and atrial fibrillation. The patient in December of 1994 underwent coronary artery bypass surgery x3, SILVERIO to the LAD, saphenous vein graft to the OM and PDA. The patient has undergone previous electrocardioversion. He has known moderate aortic stenosis. The patient has had in July of 2018 placement of a stent into his obtuse marginal branch. The patient reports that he has had several episodes, where he has become very dizzy and has apparently lost consciousness. The patient was in his usual state of health and once again he just suddenly lost consciousness. The patient states he felt weak and passed out. He did not lose control of his bladder or bowels. The patient denied having any chest discomfort. PAST MEDICAL HISTORY: 1. Coronary artery disease. 2. Atrial fibrillation. 3. Aortic stenosis. 4. Renal insufficiency. 5. Hypertension. 6. Diabetes mellitus. 7. History of GI hemorrhage. PAST SURGICAL HISTORY: Coronary artery bypass graft surgery. SOCIAL HISTORY: Nonsmoker. ALLERGIES: CODEINE. REVIEW OF SYSTEMS: Ten-point system otherwise unremarkable. No history of easy bruising or bleeding or bright red blood per rectum. PHYSICAL EXAMINATION: GENERAL: This is an obese gentleman, in no acute distress. VITAL SIGNS: Blood pressure was 202/79. NECK: No jugular venous distention. LUNGS: Clear to auscultation. HEART: Regular rate and rhythm. Normal S1 and S2 with 3/6 systolic murmur. ABDOMEN: Distended. EXTREMITIES: Mild edema. LABORATORY RESULTS: White blood cell count was 4.6, hemoglobin 10.6, hematocrit 27.2, and platelets are 175. Sodium is 136, potassium 4.1, chloride 104, bicarbonate 22, BUN 25, and creatinine 1.2. IMPRESSION: 1. Syncope. 2. Severe aortic stenosis. 3. Possible recurrent gastrointestinal hemorrhage. 4. History of coronary artery bypass graft surgery. 5. Renal insufficiency. 6. Diabetes mellitus. 7. History of pacemaker placement. PLAN: This gentleman presents with syncope. It is unclear the etiology. He does appear to have more severe aortic stenosis as his echocardiogram revealed a higher gradient than as reported. The patient also was found to be markedly anemic. I will consider transfusing 2 units of packed red blood cells. The patient's pacemaker does not appear to be sensing appropriately. This needs to be reprogramed. We will follow this patient with you through his hospitalization. Job ID: [id number] MTDD
[2020-06-22 16:24] LABS: Hemoglobin 11.4 g/dL (14.0-18.0)
[2020-06-22] MEDS ORDERED: cloNIDine 0.1 MG TAB PO PRN (16:28)
[2020-06-22] MEDS: Atorvastatin Calcium 40 MG TAB PO SCH (19:57)
[2020-06-22] MEDS: Melatonin 3 MG TAB PO SCH (20:51)
[2020-06-22] MEDS: Donepezil HCl 10 MG TAB PO SCH (20:51)
[2020-06-23 05:06] LABS: Anion Gap 16 mmol/L (10-20); BUN (Urea Nitrogen) 26 mg/dL (8.4-25.7); Calc. Creatinine Clearance 49 mL/min (70-130); Carbon Dioxide 22 mmol/L (23-31); Chloride 101 mmol/L (98-107); Glucose 125 mg/dL (83-110); Potassium 4.4 mmol/L (3.5-5.1); Sodium 135 mmol/L (136-145)
--- NOTE | 2020-06-23 05:57 | PDOC.FM ---
- Objective MAR Reviewed: Yes Vital Signs & Weight: Vital Signs (12 hours) Temp Pulse Resp BP BP Pulse Ox 06/23/20 04:44 180/84 H 06/23/20 04:01 197/83 H 06/23/20 04:00 97.7 F 62 16 197/83 H 99 06/22/20 20:51 68 118/55 L 06/22/20 19:57 181/69 H 06/22/20 18:50 98.1 F 84 20 182/79 H 182/79 H 98 Weight Weight 88.224 kg I&O: 06/21/20 06/22/20 06/23/20 06:59 06:59 06:59 Intake Total 3481 944 5022 Output Total 300 Balance 3589 507 9526 Result Diagrams: 06/22/20 15:44 06/23/20 04:16 Phys Exam - Physical Examination Constitutional: NAD HEENT: moist MMs, sclera anicteric Neck: full ROM Respiratory: clear to auscultation bilateral Cardiovascular: RRR, no significant murmur Gastrointestinal: soft, non-tender, positive bowel sounds Musculoskeletal: no edema Neurological: moves all 4 limbs Psychiatric: normal affect, A&O x 3 Skin: no rash Dx/Plan - Plan Plan: 79yo male with pmh of HTN, DM, aortic stenosis, CAD s/p CABG, paroxysmal a fib and alcohol use disorder admitted for syncope Syncope likely 2/[address] 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 Echo completed 06/21/20. - Dr. Clemons, CV surgery, consulted. If patient amendable, will evaluate for detention TAVR - Dr. Bradford, cash crop farmer, consulted. Reports pacer needs reprogramming IVONE, improved - Cr 1.24-> 1.6 -> 1.49 - Monitor with am labs HRpEF - Echo 06/21 EF 55-60%. Continue home lasix. - Strict I/Os, HH diet, fluid restriction, daily wt Alcohol use disorder - ASE protocol, daily thiamine, folic acid and MV DM - continue home meds - accuchecks ACHS, mild SSI Chronic Medical Conditions: CAD s/p CABG, HTN, paroxysmal a fib s/p ablation, [place] - continue home meds - continuous tele monitoring Pacemaker placement in 2019 -Aware Aortic Stenosis - See above Code: Full PCP: Dayton COMER Ppx: Pollo
--- NOTE | 2020-06-23 06:36 | PDOC.FM ---
- Subjective Subjective: Pt resting in bed this AM. No acute events overnight. States that he has been up to go the bathroom by himself with no issues with dizziness, SOB, or CP. Overnight, no telemetry events, pacemaker continues to spike inappropriately early. - Objective Vital Signs & Weight: Vital Signs (12 hours) Temp Pulse Resp BP BP Pulse Ox 06/23/20 06:02 106/52 L 06/23/20 04:44 180/84 H 06/23/20 04:01 197/83 H 06/23/20 04:00 97.7 F 62 16 197/83 H 99 06/22/20 20:51 68 118/55 L 06/22/20 19:57 181/69 H 06/22/20 18:50 98.1 F 84 20 182/79 H 182/79 H 98 Weight Weight 88.224 kg I&O: 06/21/20 06/22/20 06/23/20 06:59 06:59 06:59 Intake Total 6709 523 8886 Output Total 300 Balance 2290 559 9982 Result Diagrams: 06/22/20 15:44 06/23/20 04:16 Phys Exam - Physical Examination Constitutional: NAD HEENT: moist MMs Neck: no nodes, supple Respiratory: no wheezing, no rales, no rhonchi, clear to auscultation bilateral Cardiovascular: RRR, no rub grade 3/6 systolic murmur with radiation into carotids Gastrointestinal: soft, non-tender, no distention, positive bowel sounds Musculoskeletal: no edema, pulses present Neurological: non-focal, normal sensation, moves all 4 limbs Psychiatric: normal affect, A&O x 3 Skin: no rash, normal turgor, cap refill <2 seconds Dx/Plan - Plan Plan: 79yo male with pmh of HTN, DM, Aortic Stenosis, CAD s/p CABG, Paroxysmal a-fib and alcohol use disorder admitted for syncope ##Syncope likely 2/2 severe - Echo 06/21/20: showed EF 55-60% with severe , consulted cards and CV surg - Cards, Dr. Bradford, stated that upon pacemaker interrogation, it was not picking up signals correctly and will need to be fixed during hospitalization. Dr Stein is machine or machinery mechanic outpatient - CV surg, Dr. Clemons also consulted, stated that can be worked up outpatient and will see him for this ##IVONE, most likely pre-renal - Cr upon admission 1.24, baseline seems around 1.1 - Today Webbing Weaver 1.49 ##HFpEF - Echo 06/21 EF 55-60%. Continue home lasix. - Strict I/Os, HH diet, fluid restriction, daily wt ##Alcohol use disorder - ASE protocol, daily thiamine, folic acid and MV - So far no w/d sxs ##DM - continue home meds - accuchecks ACHS, mild SSI Chronic Medical Conditions: ##CAD s/p CABG ##HTN ##Paroxysmal a fib s/p ablation - continue home meds - continuous tele monitoring ##Pacemaker placement in 2019 - Aware, see above ##Aortic Stenosis - See above Code: Full DVT PPX: Pt on Eliquis at home PCP: Dayton Gonzalez as of 06/23: Pt's pacemaker to be reprogrammed today. Once this has been achieved, patient will most likely be d/cd. Addendum - Attending - Attending Attestation Date/Time: 06/23/20 3054 I personally evaluated the patient and discussed the management with Dr. Lal I agree with the History, Examination, Assessment and Plan documented above with any addition or exceptions noted below. 79 yo male admitted for syncope due to and pacemaker dysfunction Patient doing well. No acute events. CV surg to follow up outpatient for valve replacement. Pacemaker reset today with Cards. If functioning well ok for d/c. Will follow up with cards later today. Stop accu checks. Patient controlled on meformin. Annalisa
[2020-06-23] MEDS: busPIRone HCl 10 MG TAB PO SCH (08:26)
[2020-06-23] MEDS: Sacubitril 49 MG/Valsartan 51 MG TABLET PO SCH (08:27)
[2020-06-23] MEDS: Furosemide 40 MG TAB PO SCH (08:27)
[2020-06-23] MEDS: Amiodarone 200 MG TAB PO SCH (08:27)
[2020-06-23] MEDS: Multivitamin W/ Minerals 1 TAB PO SCH (08:27)
[2020-06-23] MEDS: Folic Acid 1 MG TAB PO SCH (08:27)
[2020-06-23] MEDS: Thiamine 100 MG TAB PO SCH (08:27)
[2020-06-23] MEDS: metFORMIN 500 MG TAB PO SCH (08:27)
[2020-06-23] MEDS: Carvedilol 25 MG TAB PO SCH (08:28)
[2020-06-23] MEDS ORDERED: Clopidogrel Bisulfate 75 MG TAB PO SCH (09:00)
[2020-06-23] MEDS ORDERED: Apixaban 5 MG TAB PO SCH (09:00)
[2020-06-23 11:42] VITALS: BP 113/53; TEMP 98.3
--- NOTE | 2020-06-24 06:21 | DIS ---
DATE OF ADMISSION: 06/23/2020 DATE OF DISCHARGE: 06/23/2020 RESIDENT: Edwina Mack, PGY-3 ADMITTING ATTENDING: Yeyo Munoz MD DISCHARGE ATTENDING: Yeyo Munoz MD CONSULTANTS: 1. CV Surgery. 2. Cardiology. PROCEDURES: 1. Brain CT, no acute findings. 2. Chest x-ray, 06/20/2020, no acute findings. 3. Echocardiogram, 06/21/2020, EF 55% to 60%, diastolic dysfunction, severe aortic stenosis, thickened aortic valve leaflets. PRIMARY DIAGNOSES: 1. Syncope, likely secondary to severe aortic stenosis versus alcohol use. 2. Acute kidney injury. SECONDARY DIAGNOSES: 1. Heart failure with preserved ejection fraction. 2. Alcohol use disorder. 3. Diabetes. 4. Coronary artery disease status post CABG. 5. Hypertension. 6. Paroxysmal atrial fibrillation status post ablation. 7. Myocardial infarction. 8. Pacemaker. 9. Aortic stenosis. DISCHARGE MEDICATIONS: 1. Amiodarone 20 mg p.o. daily. 2. Eliquis 5 mg b.i.d. 3. Atorvastatin 40 mg at bedtime. 4. Buspirone. 5. Coreg 25 mg b.i.d. 6. Plavix 75 mg daily. 7. Aricept 10 mg q.h.s. 8. Folic acid 1 mg daily. 9. Furosemide 40 mg daily. 10. Imdur 30 mg daily. 11. Melatonin 4 mg at bedtime. 12. Memantine 10 mg p.o. b.i.d. 13. Metformin 500 mg b.i.d. 14. Multivitamin 1 tab daily. 15. Nitroglycerin 0.4 mg sublingual q.5 minutes. 16. Entresto 1 tab b.i.d. 17. Sennosides docusate sodium 1 tablet daily p.r.n. 18. Thiamine 100 mg p.o. daily. 19. 5-HTP 200 mg q.h.s. 20. Clonidine 0.1 mg p.o. q.6 hours. HISTORY OF PRESENT ILLNESS/HOSPITAL COURSE: Mr. Montero is an 79-year-old male with past medical history significant for heart disease and alcohol use disorder who presented after an episode of syncope. He was walking in his kitchen when he lost consciousness. He felt fine prior to the incident. He said this happened 5 or 6 years ago as well. Per family, he had significant amount of alcohol to drink that day and was having difficulty walking. In the ER, he was given 1 L normal saline. Physical exam was remarkable for 3/6 systolic murmur radiating to the carotids. CT of the brain and chest x-ray showed no acute findings. Prior echo was reviewed showing moderate aortic stenosis in 2018, repeat echo was obtained showing severe aortic stenosis. Cardiovascular Surgery and Cardiology were consulted. Cardiovascular Surgery, Dr. Clemons, reviewed images and felt that there had not been a significant change in his aortic stenosis, but now with his episode of syncope warrants workup for valve replacement. Due to the COVID urge, this can be done outpatient as he was monitored on tele overnight with no events and his pacemaker was interrogated and everything was normal on report. His strokes were negative x3. He did have an IVONE likely secondary to dehydration from alcohol use. Initial creatinine 1.33, was 1.6 at discharge. Discussed the findings with his daughter and importance of following kidney function with his PCP, which he sees this coming Tuesday. His chronic medical conditions of CHF, diabetes, coronary artery disease, paroxysmal AFib were all stable on his home medications. He was treated with fluid restriction and heart healthy diet and had no signs of volume overload. With regard to his alcohol use disorder, he was started on folic acid, thiamine, and multivitamin. His initial alcohol level was 33 and was scoring between 4 and 6 on the ASE protocol throughout his stay. DISCHARGE DISPOSITION: Stable. DISCHARGE INSTRUCTIONS: 1. Location, home. 2. Diet, heart healthy, fluid restriction. 3. Activity, cardiovascular limitations. 4. Follow up with Dr. Brian June 27. The patient has actually been seen by Dr. Brian via tele visit in the past. Job ID: [id number]
== END 2020-06-23 15:30 | disposition home or self-care (01) | DRG 307 ==
LOC: ERS 19:29 → 2NO 21:49 → OBSVTOIN 06-23 10:52
PROVIDERS: ADMIT Family Medicine; ATTEND Family Medicine
DX: I35.0 Nonrheumatic aortic (valve) stenosis (principal); N17.9 Acute kidney failure, unspecified; I50.32 Chronic diastolic (congestive) heart failure; I42.9 Cardiomyopathy, unspecified; E87.2 Acidosis; Z20.822 Contact with and (suspected) exposure to COVID-19; I11.0 Hypertensive heart disease with heart failure; E11.9 Type 2 diabetes mellitus without complications; I25.10 Atherosclerotic heart disease of native coronary artery without angina pectoris; I48.0 Paroxysmal atrial fibrillation; F10.10 Alcohol abuse, uncomplicated; E78.5 Hyperlipidemia, unspecified; I16.0 Hypertensive urgency; N28.9 Disorder of kidney and ureter, unspecified; E86.0 Dehydration; I25.2 Old myocardial infarction; Z95.1 Presence of aortocoronary bypass graft; Z95.0 Presence of cardiac pacemaker; Z87.891 Personal history of nicotine dependence; Z88.5 Allergy status to narcotic agent; Z79.01 Long term (current) use of anticoagulants
CPT/HCPCS: 36415; 36416; 70450; 71045; 80048; 80053; 80307; 81003; 82565; 83605; 83880; 84484; 85014; 85018; 85025; 85049; 87635; 93005; 93306; 94760; U0003

== ENCOUNTER 2020-09-11 10:22 | Outpatient (CLI) | payer MEDICARE | END 2020-09-11 10:23 | disposition home or self-care (01) | LOC: BICRAD 10:22 | PROVIDERS: ATTEND Internal Medicine Cardiovascular Disease | DX: Z92.29 Personal history of other drug therapy (principal) | CPT/HCPCS: 71046 ==

== ENCOUNTER 2021-01-27 02:44 | Inpatient (IN) | payer MEDICARE ==
[2021-01-27 03:41] LABS: #Eosinphils 0.2 thou/uL (0.0-0.7); #Lymphocytes 1.1 thou/uL (1.20-3.40); #Monocytes 0.5 thou/uL (0.11-0.59); #Neutrophils 2.4 thou/uL (1.40-6.50); %Basophils 0.6 % (0.0-1.0); %Eosinophils 4.9 % (0.0-10.0); %Lymphocytes 23.9 % (21.0-51.0); %Monocytes 9.4 % (0.0-10.0); %Neutrophils 58.1 % (42.0-75.0); Hemoglobin 10.3 g/dL (14.0-18.0); Mean Corpuscular HGB CONC 34.5 g/dL (32.0-36.0); Mean Corpuscular Hemoglobin 32.9 pg (27.0-31.0); Mean Corpuscular Volume 95.3 fL (78.0-98.0); Mean Platelet Volume 7.4 fL (7.4-10.4); Platelet Count 158 thou/uL (130-400); RBC Distribution Width 14.2 % (11.5-14.5); Red Blood Cell (RBC) Count 3.14 mill/uL (4.70-6.10); White Blood Cell (WBC) Count 4.2 thou/uL (4.8-10.8)
[2021-01-27 03:47] LABS: ALT (SGPT) 16 U/L (8-55); AST (SGOT) 15 U/L (5-34); Albumin 3.8 g/dL (3.4-4.8); Alkaline Phosphatase 45 U/L (40-110); Anion Gap 12 mmol/L (10-20); BUN (Urea Nitrogen) 20 mg/dL (8.4-25.7); Bilirubin, Total 0.4 mg/dL (0.2-1.2); Calc. Creatinine Clearance 0 mL/min (70-130); Calcium 9.3 mg/dL (7.8-10.44); Carbon Dioxide 26 mmol/L (23-31); Chloride 105 mmol/L (98-107); Globulin 2.5 g/dL (2.4-3.5); Glucose 104 mg/dL (83-110); Potassium 3.6 mmol/L (3.5-5.1); Protein, Total 6.3 g/dL (5.8-8.1); Sodium 139 mmol/L (136-145)
[2021-01-27 04:11] LABS: CKMB 1.9 ng/mL (0-6.6)
[2021-01-27] MEDS ORDERED: Enoxaparin Sodium 80 MG/0.8 ML SYRINGE ONE (04:26)
[2021-01-27] MEDS ORDERED: Enoxaparin Sodium 60 MG/0.6 ML SYRINGE ONE (04:28)
[2021-01-27 06:08] VITALS: BMI 26.3
[2021-01-27 06:44] LABS: SARS-CoV-2 NAA Rapid Test Not Detected (NotDetected)
[2021-01-27] MEDS ORDERED: hydrALAZINE 20 MG/ML VIAL SLOW IVP PRN (06:56)
[2021-01-27] MEDS ORDERED: Ondansetron ODT 4 MG TAB PO PRN (08:04)
[2021-01-27] MEDS ORDERED: Enoxaparin Sodium 80 MG/0.8 ML SYRINGE SC SCH (08:04)
[2021-01-27] MEDS ORDERED: Ondansetron PF 4 MG/2 ML Vial IVP PRN (08:04)
[2021-01-27] MEDS ORDERED: Dextrose 5% in Water 1,000 ML IV PRN (08:05)
[2021-01-27] MEDS ORDERED: HumaLOG 300 UNITS/3 ML VIAL SC PRN ×2 (08:05)
[2021-01-27] MEDS ORDERED: Dextrose 50% Abboject 50 ML SYRINGE SLOW IVP PRN (08:05)
[2021-01-27] MEDS: Aspirin 325 mg Enteric Coated Tablet PO SCH (08:43)
[2021-01-27] MEDS: Metoprolol Tartrate 25 MG TAB PO SCH ×2 (08:43→20:28)
[2021-01-27] MEDS: Sodium Chloride 0.9% 1,000 ML IV SCH (08:43)
[2021-01-27] MEDS ORDERED: Communication Order-Pharmacy FS SCH (10:30)
[2021-01-27] MEDS: Nitroglycerin 2% Ointment 1 INCH/1 GM Packet TOP SCH ×2 (15:10→21:55)
[2021-01-28 04:46] LABS: #Basophils 0.1 thou/uL (0.0-0.2); #Eosinphils 0.2 thou/uL (0.0-0.7); #Lymphocytes 1.1 thou/uL (1.20-3.40); #Monocytes 0.6 thou/uL (0.11-0.59); #Neutrophils 4.1 thou/uL (1.40-6.50); %Eosinophils 2.6 % (0.0-10.0); %Lymphocytes 18.4 % (21.0-51.0); %Monocytes 9.6 % (0.0-10.0); %Neutrophils 68.4 % (42.0-75.0); Hemoglobin 10.1 g/dL (14.0-18.0); Mean Corpuscular HGB CONC 39.4 g/dL (32.0-36.0); Mean Corpuscular Hemoglobin 36.9 pg (27.0-31.0); Mean Corpuscular Volume 93.7 fL (78.0-98.0); Mean Platelet Volume 7.1 fL (7.4-10.4); Platelet Count 161 thou/uL (130-400); RBC Distribution Width 13.9 % (11.5-14.5); Red Blood Cell (RBC) Count 2.74 mill/uL (4.70-6.10); White Blood Cell (WBC) Count 6.1 thou/uL (4.8-10.8)
[2021-01-28 05:05] LABS: Anion Gap 13 mmol/L (10-20); BUN (Urea Nitrogen) 18 mg/dL (8.4-25.7); Calc. Creatinine Clearance 60 mL/min (70-130); Calcium 8.8 mg/dL (7.8-10.44); Carbon Dioxide 20 mmol/L (23-31); Chloride 108 mmol/L (98-107); Cholesterol 121 mg/dl (< 200 Desired); Glucose 91 mg/dL (83-110); HDL Cholesterol 41 mg/dL (>60 Neg Risk); LDL Cholesterol, Calculated 63 mg/dL; Potassium 3.9 mmol/L (3.5-5.1); Sodium 137 mmol/L (136-145); Triglycerides 86 mg/dL (Less than 150)
[2021-01-28] MEDS: Sodium Chloride 0.9% 1,000 ML IV SCH (05:31)
[2021-01-28] MEDS: Nitroglycerin 2% Ointment 1 INCH/1 GM Packet TOP SCH (05:31)
[2021-01-28] MEDS ORDERED: Sodium Chloride 0.9% 1,000 ML IV SCH (06:00)
[2021-01-28] MEDS: Metoprolol Tartrate 25 MG TAB PO SCH (07:59)
[2021-01-28] MEDS: Clopidogrel Bisulfate 75 MG TAB PO SCH (07:59)
[2021-01-28] MEDS: Aspirin 325 mg Enteric Coated Tablet PO SCH (07:59)
[2021-01-28] MEDS: Acetaminophen 325 MG TAB PO PRN ×2 (08:00→21:46)
[2021-01-28] MEDS ORDERED: Labetalol HCl 100 MG/20 ML VIAL SLOW IVP PRN (08:35)
[2021-01-28] MEDS ORDERED: Melatonin 3 MG TAB PO PRN (08:40)
[2021-01-28] MEDS: Carvedilol 25 MG TAB PO SCH ×2 (09:51→21:48)
[2021-01-28] MEDS: busPIRone HCl 10 MG TAB PO SCH ×2 (09:51→21:48)
[2021-01-28] MEDS ORDERED: Atorvastatin Calcium 40 MG TAB PO SCH (21:00)
[2021-01-28] MEDS: Sacubitril 49 MG/Valsartan 51 MG TABLET PO SCH (21:47)
[2021-01-29 05:25] LABS: Anion Gap 9 mmol/L (10-20); BUN (Urea Nitrogen) 16 mg/dL (8.4-25.7); Calc. Creatinine Clearance 63 mL/min (70-130); Calcium 8.8 mg/dL (7.8-10.44); Carbon Dioxide 24 mmol/L (23-31); Chloride 107 mmol/L (98-107); Glucose 125 mg/dL (83-110); Potassium 3.9 mmol/L (3.5-5.1); Sodium 136 mmol/L (136-145)
[2021-01-29 05:33] LABS: #Eosinphils 0.1 thou/uL (0.0-0.7); #Lymphocytes 0.8 thou/uL (1.20-3.40); #Monocytes 0.8 thou/uL (0.11-0.59); #Neutrophils 4.5 thou/uL (1.40-6.50); %Basophils 0.7 % (0.0-1.0); %Eosinophils 1.7 % (0.0-10.0); %Lymphocytes 12.9 % (21.0-51.0); %Monocytes 12.4 % (0.0-10.0); %Neutrophils 72.4 % (42.0-75.0); Hemoglobin 10.2 g/dL (14.0-18.0); Mean Corpuscular HGB CONC 35.3 g/dL (32.0-36.0); Mean Corpuscular Hemoglobin 33.6 pg (27.0-31.0); Mean Corpuscular Volume 95.2 fL (78.0-98.0); Mean Platelet Volume 7.7 fL (7.4-10.4); Platelet Count 137 thou/uL (130-400); RBC Distribution Width 14.4 % (11.5-14.5); Red Blood Cell (RBC) Count 3.05 mill/uL (4.70-6.10); White Blood Cell (WBC) Count 6.2 thou/uL (4.8-10.8)
[2021-01-29] MEDS: Clopidogrel Bisulfate 75 MG TAB PO SCH (05:52)
[2021-01-29] MEDS: Aspirin 325 mg Enteric Coated Tablet PO SCH (05:52)
[2021-01-29] MEDS: busPIRone HCl 10 MG TAB PO SCH (05:52)
[2021-01-29] MEDS: Carvedilol 25 MG TAB PO SCH (05:52)
[2021-01-29] MEDS: Sacubitril 49 MG/Valsartan 51 MG TABLET PO SCH (05:52)
[2021-01-29] MEDS ORDERED: Sodium Chloride 0.9% 1,000 ML IV SCH ×2 (06:00→08:49)
[2021-01-29] MEDS ORDERED: Midazolam HCl 2 mg/2 ml Vial ONE (06:46)
[2021-01-29] MEDS ORDERED: Lidocaine 1% (PF) 30 ML VIAL ONE (06:46)
[2021-01-29] MEDS ORDERED: Fentanyl 100 MCG/2 ML VIAL ONE (06:46)
[2021-01-29] MEDS ORDERED: Heparin 10,000 UNITS/ 10 ML VIAL ONE (08:16)
[2021-01-29] MEDS ORDERED: Protamine Sulfate 50 MG/5 ML VIAL ONE (08:18)
[2021-01-29] MEDS ORDERED: Sodium Chloride 0.9% 200 ML IV PRN (08:48)
[2021-01-29] MEDS ORDERED: Nitroglycerin 0.4 MG TAB (25 Tab Bottle) SL PRN (08:48)
[2021-01-29] MEDS: Acetaminophen 325 MG TAB PO PRN (10:00)
[2021-01-29] MEDS: Nitroglycerin 0.4 MG TAB (25 Tab Bottle) SL PRN ×2 (12:53→13:32)
[2021-01-29 14:06] LABS: CKMB 3.9 ng/mL (0-6.6)
[2021-01-29] MEDS ORDERED: Carvedilol 25 MG TAB PO SCH (15:00)
[2021-01-29 16:10] VITALS: TEMP 98.5
[2021-01-29 18:02] VITALS: BP 150/64
[2021-01-30] MEDS ORDERED: Amiodarone 200 MG TAB PO SCH (09:00)
== END 2021-01-29 20:11 | disposition short-term general hospital (02) | DRG 281 ==
LOC: ERS 02:44 → 2SE 04:23
PROVIDERS: ADMIT Student in an Organized Health Care Education/Training Program; ATTEND Internal Medicine
PROC: 4A023N8 Measurement of Cardiac Sampling and Pressure, Bilateral, Percutaneous Approach (ICD-10-PCS; principal; 2021-01-29)
PROC: B2161ZZ Fluoroscopy of Right and Left Heart using Low Osmolar Contrast (ICD-10-PCS; 2021-01-29)
PROC: B2111ZZ Fluoroscopy of Multiple Coronary Arteries using Low Osmolar Contrast (ICD-10-PCS; 2021-01-29)
PROC: B2131ZZ Fluoroscopy of Multiple Coronary Artery Bypass Grafts using Low Osmolar Contrast (ICD-10-PCS; 2021-01-29)
DX: I21.4 Non-ST elevation (NSTEMI) myocardial infarction (principal); I50.42 Chronic combined systolic (congestive) and diastolic (congestive) heart failure; Z20.822 Contact with and (suspected) exposure to COVID-19; N17.9 Acute kidney failure, unspecified; I25.10 Atherosclerotic heart disease of native coronary artery without angina pectoris; N18.2 Chronic kidney disease, stage 2 (mild); I48.0 Paroxysmal atrial fibrillation; E78.5 Hyperlipidemia, unspecified; F41.9 Anxiety disorder, unspecified; D63.1 Anemia in chronic kidney disease; E11.22 Type 2 diabetes mellitus with diabetic chronic kidney disease; M19.019 Primary osteoarthritis, unspecified shoulder; F10.10 Alcohol abuse, uncomplicated; I08.3 Combined rheumatic disorders of mitral, aortic and tricuspid valves; I25.5 Ischemic cardiomyopathy; E78.00 Pure hypercholesterolemia, unspecified; I12.9 Hypertensive chronic kidney disease with stage 1 through stage 4 chronic kidney disease, or unspecified chronic kidney disease; Z95.1 Presence of aortocoronary bypass graft; Z79.01 Long term (current) use of anticoagulants; Z88.5 Allergy status to narcotic agent; Z79.899 Other long term (current) drug therapy; Z79.84 Long term (current) use of oral hypoglycemic drugs; Z79.02 Long term (current) use of antithrombotics/antiplatelets; Z95.0 Presence of cardiac pacemaker; I25.2 Old myocardial infarction; Z87.891 Personal history of nicotine dependence
CPT/HCPCS: 0240U; 36415; 36416; 71045; 76942; 80048; 80053; 80061; 82553; 83735; 84484; 85025; 85347; 85379; 93005; 93010; 93306; 93460; 93561; 94760; 96372; 99152; 99153; J1644; J1650; J2001; J2250; J2405; J2720; J3010